=== PATIENT | female | born 1980 | race African-American/Black ===

== ENCOUNTER 2018-02-02 20:23 | Inpatient (IN) | payer OTHER ==
[2018-02-02 20:44] VITALS: BMI 22.3
--- NOTE | 2018-02-02 20:44 | HP ---
COWS - Scale Resting Pulse: 2= NV 101-120 Sweatin= Chills/Flushing Restless Observation: 1= Difficult to Sit Still Pupil Size: 0= Normal to Room Light Bone or Joint Aches: 1= Mild Discomfort Runny Nose/ Eye Tearin= Runny Nose/Eyes GI Upset > 30mins: 0= None Tremor Observation: 2= Slight Tremor Visible Yawning Observation: 2= >3x During Session Anxiety or Irritability: 2=Irritable/Anxious Goose Flesh Skin: 0=Smooth Skin COWS Score: 13 CIWA Score - CIWA Score Nausea/Vomitin-No Nausea/No Vomiting Muscle Tremors: 2 Anxiety: 3 Agitation: 4-Moderately Restless Paroxysmal Sweats: 1-Minimal Palms Moist Orientation: 1-Uncertain about Date (no distress) Tacttile Disturbances: 0-None Auditory Disturbances: 1-Very Mild Visual Disturbances: 1-Very Mild Sensitivity Headache: 1-Very Mild CIWA-Ar Total Score: 14 Admission ROS S - HPI Chief Complaint: opioid, alcohol withdrawal symptoms Allergies/Adverse Reactions: Allergies Allergy/AdvReac Type Severity Reaction Status Date / Time ibuprofen Allergy Verified 02/02/18 20:50 History of Present Illness: 37 yo female with hx of nicotine, alcohol, xanax , alcohol , and heroin dependence is here seeking detox for the fist time. Denies any other detox tx. Poppy was seen at [facility] for an asthma attack. Poppy was recently rapped two weeks ago and was seen at [facility]. PMHX: herniated disc , chronic, Asthma, depression, bipolar, schizophrenia, manic depression. Denies suicidal / homicidal ideation, report hx suicide thoughts, poppy was admitted to [facility] for homicidal ideation and auditory hallucinations four months ago. Denies any period of sobriety. Denies hx of seizures or blackouts, reports OD x1, last episode June 2017. Exam Limitations: No Limitations - Ebola screening Have you traveled outside of the country in the last 21 days: No Have you had contact with anyone from an Ebola affected area: No Do you have a fever: No - Review of Systems Constitutional: Loss of Appetite (not eatene x 2 days), Changes in sleep (no sleep x 5 days), Unintentional Wgt. Loss EENT: reports: Nose Congestion Respiratory: reports: SOB with Exertion Cardiac: reports: No Symptoms Reported GI: reports: Poor Appetite, Poor Fluid Intake : reports: No Symptoms Reported Musculoskeletal: reports: Back Pain, Joint Pain Integumentary: reports: No Symptoms Reported Endocrine: reports: No Symptoms Reported, Increased Thirst Hematology: reports: No Symptoms Reported Psychiatric: reports: Orientated x3, Anxious Other Systems: Reviewed and Negative Patient History - Patient Medical History Hx Anemia: No Hx Asthma: Yes Hx Chronic Obstructive Pulmonary Disease (COPD): No Hx Cancer: No Hx Cardiac Disorders: No Hx Congestive Heart Failure: No Hx Hypertension: No Hx Hypercholesterolemia: No Hx Pacemaker: No HX Cerebrovascular Accident: No Hx Seizures: No Hx Dementia: No Hx Diabetes: No Hx Gastrointestinal Disorders: No Hx Liver Disease: No Hx Genitourinary Disorders: No Hx Sexually Transmitted Disorders: No Hx Renal Disease (ESRD): No Hx Thyroid Disease: No Hx Human Immunodeficiency Virus (HIV): No (reports test q3m, results negative) Hx Depression: Yes Hx Suicide Attempt: No Hx Bipolar Disorder: Yes Hx Schizophrenia: Yes - Patient Surgical History Past Surgical History: Yes Hx Neurologic Surgery: No Hx Cataract Extraction: No Hx Cardiac Surgery: No Hx Lung Surgery: No Hx Breast Surgery: No Hx Breast Biopsy: No Hx Abdominal Surgery: No Hx Appendectomy: No Hx Cholecystectomy: No Hx Genitourinary Surgery: No Hx Section: Yes ( x 2 ) Hx Orthopedic Surgery: No Hx Hysterectomy: No Anesthesia Reaction: No - PPD History Previous Implant?: No Documented Results: Negative w/o proof Implanted On Prior R Admission?: No PPD to be Administered?: Yes - Reproductive History Patient is a Female of Child Bearing Age (11 -55 yrs old): Yes Last Menstrual Period: 01/11/18 Patient : No - Smoking Cessation Smoking history: Current every day smoker Have you smoked in the past 12 months: Yes Aproximately how many cigarettes per day: 20 Hx Chewing Tobacco Use: No Initiated information on smoking cessation: Yes 'Breaking Loose' booklet given: 02/02/18 - Substance & Tx. History Hx Alcohol Use: Yes Hx Substance Use: Yes Substance Use Type: Alcohol, Cocaine, Heroin, Marijuana, Tranquilizers Hx Substance Use Treatment: No - Substances Abused Alcohol Route: Oral Frequency: Daily Amount used: 1 pint ricki Age of first use: 14 Date of Last Use: 02/02/18 Heroin Route: Inhalation Frequency: Daily Amount used: 5 - 7 bags Age of first use: 35 Date of Last Use: 02/02/18 Crack Route: Smoking Frequency: Daily Amount used: $800 - $900 Age of first use: 34 Date of Last Use: 02/02/18 Alprazolam (Xanax) Route: Oral Frequency: 3-6 times per week Amount used: 1 - 2 mg Age of first use: 30 Date of Last Use: 01/30/18 Family Disease History - Family Disease History Family History: Unable to Obtain Admission Physical Exam [facility] - Physical General Appearance: Yes: Disheveled, Mild Distress, Thin, Irritable, Anxious HEENTM: Yes: EOMI, Hearing grossly Normal, Normal ENT Inspection, Normocephalic , Normal Voice, JUSTA, Pharynx Normal, Tm's normal, Nasal Congestion Respiratory: Yes: Chest Non-Tender, Lungs Clear, No Respiratory Distress, No Accessory Muscle Use, Wheezing Neck: Yes: Within Normal Limits Breast: Yes: Breast Exam Deferred Cardiology: Yes: Regular Rhythm, Regular Rate Abdominal: Yes: Normal Bowel Sounds, Non Tender, Flat, Soft Genitourinary: Yes: Within Normal Limits Back: Yes: Normal Inspection Musculoskeletal: Yes: full range of Motion, Gait Steady, Pelvis Stable, Back pain Extremities: Yes: Normal Capillary Refill, Normal Inspection, Normal Range of Motion, Non-Tender Neurological: Yes: director of special education II-XII NML intact, Fully Oriented, Alert, Motor Strength 5/5, Normal Response, Depressed Affect Integumentary: Yes: Normal Color, Warm, Diaphoresis Lymphatic: Yes: Within Normal Limits - Diagnostic (1) Cocaine dependence Current Visit: Yes Status: Acute Qualifiers: Substance use status: uncomplicated Qualified Code(s): F14.20 - Cocaine dependence, uncomplicated (2) Opioid dependence with withdrawal Current Visit: Yes Status: Acute (3) Alcohol dependence with withdrawal Current Visit: Yes Status: Acute Qualifiers: Complication of substance-induced condition: uncomplicated Qualified Code(s ): F10.230 - Alcohol dependence with withdrawal, uncomplicated (4) Nicotine dependence Current Visit: Yes Status: Acute Qualifiers: Nicotine product type: cigarettes (5) Wheezing Current Visit: Yes Status: Acute (6) Asthma Current Visit: Yes Status: Chronic Qualifiers: Asthma severity: moderate Asthma complication type: with acute exacerbation (7) Psychiatric disorder Current Visit: Yes Status: Acute (8) Sedative hypnotic or anxiolytic dependence Current Visit: Yes Status: Acute Cleared for Admission S - Detox or Rehab [facility] Level of Care: Medically Managed Detox Regimen/Protocol: Methadone/Librium
[2018-02-02] MEDS ORDERED: MAGNESIUM CITRATE 300 ML BOTTLE PO PRN (21:01)
[2018-02-02] MEDS ORDERED: MAG HYDROX/AL HYDROX/SIMETH 30 ML UNIT-DOSE CUP PO PRN (21:01)
[2018-02-02] MEDS ORDERED: METHADONE HCL 10 MG TABLET (FOR DETOX USE ONLY) PO ONE ×2 (21:01→23:00)
[2018-02-02] MEDS ORDERED: guaiFENesin/D-METHORPHAN HB 10 ML UNIT-DOSE CUPS PO PRN (21:01)
[2018-02-02] MEDS ORDERED: P-EPHED 60MG/TRIPROLIDI 2.5MG TABLET PO PRN (21:01)
[2018-02-02] MEDS ORDERED: MENTHOL/PHENOL 1 EACH UD MM PRN (21:01)
[2018-02-02] MEDS ORDERED: LOPERAMIDE HCL 2 MG CAPSULE PO PRN (21:01)
[2018-02-02] MEDS ORDERED: MAGNESIUM HYDROX 2400MG/30ML ORAL SUSPENSION 30 ML CUP PO PRN (21:01)
[2018-02-02] MEDS ORDERED: chlordiazePOXIDE HCL 25 MG CAPSULE PO PRN (21:01)
[2018-02-02] MEDS ORDERED: ACETAMINOPHEN 325 MG TABLET (FP) PO PRN (21:01)
[2018-02-02] MEDS ORDERED: MELATONIN 5 MG TABLETS PO PRN (22:00)
[2018-02-02] MEDS: chlordiazePOXIDE HCL 25 MG CAPSULE PO SCH (22:56)
[2018-02-02] MEDS: THIAMINE HCL 100 MG TABLET (FP) PO SCH (22:57)
[2018-02-03] MEDS: hydrOXYzine PAMOATE 50 MG CAPSULE (FP) PO PRN (03:14)
[2018-02-03] MEDS: ALBUTEROL SO4 8 GM HFA INHALER IH PRN ×4 (03:26→22:18)
[2018-02-03] MEDS: chlordiazePOXIDE HCL 25 MG CAPSULE PO SCH ×4 (06:23→22:17)
--- NOTE | 2018-02-03 09:36 | PN ---
[facility] Progress Note Note: c/o "on the edge" wants to harm self and harm others "I do not have withdrawal sx like other people" patient is alert rocking back and forth 1 on 1 observation psychiatric consultation now
[2018-02-03 09:38] LABS: HEMATOCRIT 36.9 % (32.4-45.2); HEMOGLOBIN 12.2 GM/dL (10.7-15.3); MCH 28.8 pg (25.7-33.7); MCHC 33.1 g/dl (32.0-36.0); MEAN CELL VOLUME 86.8 fl (80-96); MEAN PLT VOLUME 7.9 fl (7.5-11.1); PLATELET COUNT 564 K/MM3 (134-434); RBC 4.24 M/mm3 (3.60-5.2); RDW 14.4 % (11.6-15.6); WHITE BLOOD COUNT 9.8 K/mm3 (4.0-10.0)
--- NOTE | 2018-02-03 09:44 | CONSULT ---
[facility] Psychiatric Consult - Data Date of interview: 02/03/18 Admission source: [facility] Identifying data: Patient is a 37 year old single female, mother of two, domiciled, and works as a prostitute. This is patient's first admission to detox at [facility]. Pt. admitted to for alcohol dependence. Substance Abuse History: Smoking Cessation. Smoking history: Current every day smoker. Have you smoked in the past 12 months: Yes. Aproximately how many cigarettes per day: 20. Hx Chewing Tobacco Use: No. Initiated information on smoking cessation: Yes. 'Breaking Loose' booklet given: 02/02/18. - Substance & Tx. History. Hx Alcohol Use: Yes. Hx Substance Use: Yes. Substance Use Type : Alcohol, Cocaine, Heroin, Marijuana, Tranquilizers. Hx Substance Use Treatment: No. - Substances Abused. Alcohol. Route: Oral. Frequency: Daily. Amount used: 1 pint henessy. Age of first use: 14. Date of Last Use: 02/02/18. Heroin. Route: Inhalation. Frequency: Daily. Amount used: 5 - 7 bags. Age of first use: 35. Date of Last Use: 02/02/18. Crack. Route: Smoking. Frequency: Daily. Amount used: $800 - $900. Age of first use: 34. Date of Last Use: 02/02/18. Alprazolam (Xanax). Route: Oral. Frequency: 3- 6 times per week. Amount used: 1 - 2 mg. Age of first use: 30. Date of Last Use: 01/30/18 Medical History: Asthma Psychiatric History: Pt. reports multiple psychiatric hospitalizations, most recently 4 months ago at [facility] for bipolar disorder. Pt. reports also being admitted to [facility]. Pt. unable to recall the medications she was prescribed while at [facility]. Pt. reports [employer] approximately 10 years ago. Pt. remembers only taking zoloft. As per pharmacy claims, an electronic prescription of mirtzapine was sent to patient's pharmacy on 05/26/2017. Pt. reports h/o auditory and visual halluincations (see's spirits ). Pt. reports currently hearing voices telling her to leave. Pt. denies command auditory hallucinations. Pt. nonadherent to [employer]. Pt. reports one suicide attempt four years ago by cutting self on left wrist. As per [facility], patient reported having thoughts to hurt herself or others. Pt. stated to insurance underwriter , " I did not say i wanted to hurt myself or others. I said if don't get the medications i need, i will have thoughts to hurt myself. I do not want to hurt myself or others." Patient can approach staff if she has thoughts to hurt self or others. At this time patient does not need 1:1 Observation. Seroquel 50mg qhs ordered. Mental Status Exam - Mental Status Exam Alert and Oriented to: Time, Place, Person Cognitive Function: Good Patient Appearance: Well Groomed Mood: Euthymic Affect: Mood Congruent Patient Behavior: Appropriate, Cooperative Speech Pattern: Appropriate Voice Loudness: Normal Thought Process: Intact Thought Disorder: Not Present Hallucinations: Denies Suicidal Ideation: Denies Homicidal Ideation: Denies Insight/Judgement: Poor Sleep: Poorly Appetite: Fair Muscle strength/Tone: Normal Gait/Station: Normal Psychiatric Findings - Problem List (Webb 1, 2,3) (1) Substance induced mood disorder Current Visit: Yes Status: Acute (2) Alcohol dependence with withdrawal Current Visit: Yes Status: Acute Qualifiers: Complication of substance-induced condition: uncomplicated Qualified Code(s ): F10.230 - Alcohol dependence with withdrawal, uncomplicated (3) Nicotine dependence Current Visit: Yes Status: Acute Qualifiers: Nicotine product type: cigarettes (4) Opioid dependence with withdrawal Current Visit: Yes Status: Acute - Initial Treatment Plan Initial Treatment Plan: Pt. currently denies urges or thoughts to hurt self or others and therefore does not require 1:1 obervation. Psychoeducation provided. Detoxification in progress. Seroquel 50mg qhs orderded. Benefits and side effects discussed. Verbal consent given.
[2018-02-03] MEDS ORDERED: METHADONE HCL 10 MG TABLET (FOR DETOX USE ONLY) PO SCH (10:00)
[2018-02-03 10:48] LABS: ALBUMIN 2.9 g/dl (3.4-5.0); ANION GAP 11 (8-16); BLOOD UREA NITROGEN 12 mg/dL (7-18); CHLORIDE 104 mmol/L (98-107); CO2 23 mmol/L (21-32); GLUCOSE,RANDOM 109 mg/dL (74-106); POTASSIUM 4.3 mmol/L (3.5-5.1); SODIUM 138 mmol/L (136-145)
[2018-02-03] MEDS: NICOTINE 21 MG/24 HOURS TOPICAL PATCH TD SCH (10:49)
[2018-02-03] MEDS: PRENATAL VITAMINS W/ FOLIC ACID TABLET (FP) PO SCH (10:49)
[2018-02-03 10:51] LABS: ALK PHOS 120 U/L (45-117); BILIRUBIN,TOTAL 0.1 mg/dL (0.2-1.0); CREATININE 0.8 mg/dL (0.55-1.02); SGOT/AST 21 U/L (15-37); SGPT/ALT 25 U/L (12-78); TOT PROT 7.3 g/dl (6.4-8.2)
[2018-02-03] MEDS: NICOTINE POLACRILEX 2 MG GUM BC PRN ×2 (10:53→18:26)
--- NOTE | 2018-02-03 11:48 | PN ---
[facility] CIWA - CIWA Score Nausea/Vomitin-Mild Nausea/No Vomiting Muscle Tremors: 4-Moderate,w/Arms Extend Anxiety: 4-Mod. Anxious/Guarded Agitation: 4-Moderately Restless Paroxysmal Sweats: 1-Minimal Palms Moist Orientation: 0-Oriented Tacttile Disturbances: 0-None Auditory Disturbances: 0-None Visual Disturbances: 0-None Headache: 0-None Present CIWA-Ar Total Score: 14 [facility] COWS - Scale Resting Pulse: 1= MO 81-100 Sweatin= Chills/Flushing Restless Observation: 1= Difficult to Sit Still Pupil Size: 0= Normal to Room Light Bone or Joint Aches: 2= Severe Diffuse Aches Runny Nose/ Eye Tearin= Nasal Congestion GI Upset > 30mins: 2= Nausea/Diarrhea Tremor Observation of Outstretched Hands: 2= Slight Tremor Visible Yawning Observation: 1= 1-2x During Session Anxiety or Irritability: 1=Feels Anxious/Irritable Goose Flesh Skin: 3=Piloerection COWS Score: 15 [facility] Progress Note (SOAP) Subjective: anxiety irritable sweat tremor restlessness trouble sleep at night Objective: 02/03/18 11:50 Vital Signs Temperature 97.9 F 02/03/18 10:50 Pulse Rate 97 H 02/03/18 10:50 Respiratory Rate 18 02/03/18 10:50 Blood Pressure 111/76 02/03/18 10:50 O2 Sat by Pulse Oximetry (%) Laboratory Last Values WBC 9.8 K/mm3 (4.0-10.0) 02/03/18 07:00 RBC 4.24 M/mm3 (3.60-5.2) 02/03/18 07:00 Hgb 12.2 GM/dL (10.7-15.3) 02/03/18 07:00 Hct 36.9 % (32.4-45.2) 02/03/18 07:00 MCV 86.8 fl (80-96) 02/03/18 07:00 MCH 28.8 pg (25.7-33.7) 02/03/18 07:00 MCHC 33.1 g/dl (32.0-36.0) 02/03/18 07:00 RDW 14.4 % (11.6-15.6) 02/03/18 07:00 Plt Count 564 K/MM3 (134-434) H 02/03/18 07:00 MPV 7.9 fl (7.5-11.1) 02/03/18 07:00 Sodium 138 mmol/L (136-145) 02/03/18 07:00 Potassium 4.3 mmol/L (3.5-5.1) 02/03/18 07:00 Chloride 104 mmol/L (98-107) 02/03/18 07:00 Carbon Dioxide 23 mmol/L (21-32) 02/03/18 07:00 Anion Gap 11 (8-16) 02/03/18 07:00 BUN 12 mg/dL (7-18) 02/03/18 07:00 Creatinine 0.8 mg/dL (0.55-1.02) 02/03/18 07:00 Creat Clearance w eGFR > 60 (>60) 02/03/18 07:00 Random Glucose 109 mg/dL (74-106) H 02/03/18 07:00 Calcium 9.0 mg/dL (8.5-10.1) 02/03/18 07:00 Total Bilirubin 0.1 mg/dL (0.2-1.0) L 02/03/18 07:00 AST 21 U/L (15-37) 02/03/18 07:00 ALT 25 U/L (12-78) 02/03/18 07:00 Alkaline Phosphatase 120 U/L (45-117) H 02/03/18 07:00 Total Protein 7.3 g/dl (6.4-8.2) 02/03/18 07:00 Albumin 2.9 g/dl (3.4-5.0) L 02/03/18 07:00 RPR Titer Nonreactive (NONREACTIVE) 02/03/18 07:00 HIV 1&2 Antibody Screen Negative 02/03/18 07:00 HIV P24 Antigen Negative 02/03/18 07:00 lab noted Assessment: 02/03/18 11:52 withdrawal sx Plan: continue detox
--- NOTE | 2018-02-03 13:57 | EKG ---
Test Reason : Blood Pressure : / mmHG Vent. Rate : 103 BPM Atrial Rate : 103 BPM P-R Int : 132 ms QRS Dur : 082 ms QT Int : 376 ms P-R-T Axes : 037 043 066 degrees QTc Int : 492 ms SINUS TACHYCARDIA OTHERWISE NORMAL ECG NO PREVIOUS ECGS AVAILABLE Confirmed by Stephan Polo MD ([id number]) on 02/03/2018 1:57:07 PM Referred By: Confirmed By:Stephan Polo MD
[2018-02-03] MEDS: BACLOFEN 10 MG TABLET (FP) PO PRN ×2 (14:40→22:18)
[2018-02-03 15:17] LABS: URINE APPEARANCE CLEAR; URINE BILIRUBIN NEGATIVE (<2.0 mg/dL); URINE COLOR LTYELLOW; URINE GLUCOSE (UA) NEGATIVE (NEGATIVE); URINE KETONE NEGATIVE (NEGATIVE); URINE LEUK ESTERASE NEGATIVE (NEGATIVE); URINE NITRITE NEGATIVE (NEGATIVE); URINE PROTEIN NEGATIVE (NEGATIVE); URINE UROBILINOGEN NEGATIVE mg/dL (0.2-1.0)
[2018-02-03] MEDS: THIAMINE HCL 100 MG TABLET (FP) PO SCH (22:17)
[2018-02-03] MEDS: QUEtiapine FUMARATE 50 MG TABLET PO SCH (22:18)
[2018-02-04] MEDS: chlordiazePOXIDE HCL 25 MG CAPSULE PO SCH ×3 (06:20→18:17)
[2018-02-04] MEDS: ALBUTEROL SO4 8 GM HFA INHALER IH PRN (08:54)
[2018-02-04] MEDS: BACLOFEN 10 MG TABLET (FP) PO PRN ×2 (08:54→19:15)
[2018-02-04] MEDS: METHADONE HCL 5 MG TABLET (FOR DETOX USE ONLY) PO SCH (10:33)
[2018-02-04] MEDS: NICOTINE 21 MG/24 HOURS TOPICAL PATCH TD SCH (10:33)
[2018-02-04] MEDS: PRENATAL VITAMINS W/ FOLIC ACID TABLET (FP) PO SCH (10:33)
[2018-02-04] MEDS: NICOTINE POLACRILEX 2 MG GUM BC PRN ×2 (10:34→19:16)
--- NOTE | 2018-02-04 10:46 | PN ---
[facility] CIWA - CIWA Score Nausea/Vomitin Muscle Tremors: 3 Anxiety: 2 Agitation: 2 Paroxysmal Sweats: 1-Minimal Palms Moist Orientation: 0-Oriented Tacttile Disturbances: 1-Very Mild Itch/Numbness Auditory Disturbances: 1-Very Mild Visual Disturbances: 0-None Headache: 2-Mild CIWA-Ar Total Score: 15 BHS COWS - Scale Resting Pulse: 2= [place] 101-120 Sweatin= Chills/Flushing Restless Observation: 3= Extraneous Movement Pupil Size: 1= Pupils >than Normal Bone or Joint Aches: 2= Severe Diffuse Aches Runny Nose/ Eye Tearin= Runny Nose/Eyes GI Upset > 30mins: 2= Nausea/Diarrhea Tremor Observation of Outstretched Hands: 2= Slight Tremor Visible Yawning Observation: 1= 1-2x During Session Anxiety or Irritability: 2=Irritable/Anxious Goose Flesh Skin: 0=Smooth Skin COWS Score: 18 [facility] Progress Note (SOAP) Subjective: alert,irritable,anxious,interrupted sleep,tremor,pain in the body Objective: 02/04/18 10:44 Vital Signs Temperature 97.2 F L 02/04/18 09:55 Pulse Rate 102 H 02/04/18 09:55 Respiratory Rate 20 02/04/18 09:55 Blood Pressure 109/62 02/04/18 09:55 O2 Sat by Pulse Oximetry (%) ekg sinus tachycardia 103 qt/qtc 376/492 Laboratory Last Values WBC 9.8 K/mm3 (4.0-10.0) 02/03/18 07:00 RBC 4.24 M/mm3 (3.60-5.2) 02/03/18 07:00 Hgb 12.2 GM/dL (10.7-15.3) 02/03/18 07:00 Hct 36.9 % (32.4-45.2) 02/03/18 07:00 MCV 86.8 fl (80-96) 02/03/18 07:00 MCH 28.8 pg (25.7-33.7) 02/03/18 07:00 MCHC 33.1 g/dl (32.0-36.0) 02/03/18 07:00 RDW 14.4 % (11.6-15.6) 02/03/18 07:00 Plt Count 564 K/MM3 (134-434) H 02/03/18 07:00 MPV 7.9 fl (7.5-11.1) 02/03/18 07:00 Sodium 138 mmol/L (136-145) 02/03/18 07:00 Potassium 4.3 mmol/L (3.5-5.1) 02/03/18 07:00 Chloride 104 mmol/L (98-107) 02/03/18 07:00 Carbon Dioxide 23 mmol/L (21-32) 02/03/18 07:00 Anion Gap 11 (8-16) 02/03/18 07:00 BUN 12 mg/dL (7-18) 02/03/18 07:00 Creatinine 0.8 mg/dL (0.55-1.02) 02/03/18 07:00 Creat Clearance w eGFR > 60 (>60) 02/03/18 07:00 Random Glucose 109 mg/dL (74-106) H 02/03/18 07:00 Calcium 9.0 mg/dL (8.5-10.1) 02/03/18 07:00 Total Bilirubin 0.1 mg/dL (0.2-1.0) L 02/03/18 07:00 AST 21 U/L (15-37) 02/03/18 07:00 ALT 25 U/L (12-78) 02/03/18 07:00 Alkaline Phosphatase 120 U/L (45-117) H 02/03/18 07:00 Total Protein 7.3 g/dl (6.4-8.2) 02/03/18 07:00 Albumin 2.9 g/dl (3.4-5.0) L 02/03/18 07:00 Urine Color Ltyellow 02/03/18 13:15 Urine Appearance Clear 02/03/18 13:15 Urine pH 7.0 (5.0-8.0) 02/03/18 13:15 Ur Specific [place] 1.013 (1.001-1.035) 02/03/18 13:15 Urine Protein Negative (NEGATIVE) 02/03/18 13:15 Urine Glucose (UA) Negative (NEGATIVE) 02/03/18 13:15 Urine Ketones Negative (NEGATIVE) 02/03/18 13:15 Urine Blood Negative (NEGATIVE) 02/03/18 13:15 Urine Nitrite Negative (NEGATIVE) 02/03/18 13:15 Urine Bilirubin Negative (<2.0 mg/dL) 02/03/18 13:15 Urine Urobilinogen Negative mg/dL (0.2-1.0) 02/03/18 13:15 Ur Leukocyte Esterase Negative (NEGATIVE) 02/03/18 13:15 RPR Titer Nonreactive (NONREACTIVE) 02/03/18 07:00 HIV 1&2 Antibody Screen Negative 02/03/18 07:00 HIV P24 Antigen Negative 02/03/18 07:00 Assessment: 02/04/18 10:47 withdrawal symptom Plan: continue detox
[2018-02-04] MEDS ORDERED: CYCLOBENZAPRINE HCL 10 MG TABLET (FP) PO PRN (11:06)
[2018-02-04] MEDS ORDERED: CYCLOBENZAPRINE HCL 10 MG TABLET (FP) PO ONE (11:20)
[2018-02-04] MEDS: cloNIDine HCL 0.1 MG TABLET PO SCH ×2 (11:23→23:05)
[2018-02-04] MEDS: THIAMINE HCL 100 MG TABLET (FP) PO SCH (22:25)
[2018-02-04] MEDS: chlordiazePOXIDE 5 MG CAPSULE PO SCH (22:26)
[2018-02-04] MEDS: QUEtiapine FUMARATE 50 MG TABLET PO SCH (22:26)
[2018-02-04] MEDS: ALBUTEROL SO4 2.5/IPRATROPIUM 0.5 INH SOL 3 ML VIAL.NEB. NEB PRN (22:29)
[2018-02-05] MEDS: chlordiazePOXIDE 5 MG CAPSULE PO SCH ×3 (06:58→17:52)
[2018-02-05] MEDS: ALBUTEROL SO4 8 GM HFA INHALER IH PRN (08:30)
[2018-02-05] MEDS: hydrOXYzine PAMOATE 50 MG CAPSULE (FP) PO PRN (08:31)
[2018-02-05 09:57] VITALS: BP 114/75; PULSE 119; TEMP 98
[2018-02-05] MEDS: PRENATAL VITAMINS W/ FOLIC ACID TABLET (FP) PO SCH (10:44)
[2018-02-05] MEDS: METHADONE HCL 5 MG TABLET (FOR DETOX USE ONLY) PO SCH (10:44)
[2018-02-05] MEDS: NICOTINE 21 MG/24 HOURS TOPICAL PATCH TD SCH (10:44)
[2018-02-05] MEDS: cloNIDine HCL 0.1 MG TABLET PO SCH ×2 (10:44→23:04)
[2018-02-05] MEDS: ALBUTEROL SO4 2.5/IPRATROPIUM 0.5 INH SOL 3 ML VIAL.NEB. NEB PRN (10:45)
[2018-02-05] MEDS: NICOTINE POLACRILEX 2 MG GUM BC PRN (10:45)
--- NOTE | 2018-02-05 11:14 | PN ---
Psychiatric Progress Note Vital Signs: Vital Signs Period Temp Pulse Resp BP Sys/Lincoln Pulse Ox Last 24 Hr 98 F-99.7 F 97-127 16-20 103-114/62-79 Date of Session: 02/05/18 Chief Complaint:: Auditory hallucination HPI: Patient reports hearing voices commanding her to hurt herself or others. having thoughts to hurt herself or others. Patient agrees to be transfer to psychiatric department for professional hael to start psychiatric medications and to stop auditory hallucinations Current Medications: Active Medications Generic Name Dose Route Start Last Admin Trade Name Freq PRN Reason Stop Dose Admin Acetaminophen 650 mg 02/02/18 21:01 Tylenol - PO Q4H PRN FEVER Al Hydroxide/Mg Hydroxide 30 ml 02/02/18 21:01 Mylanta Oral Suspension - PO Q6H PRN DYSPEPSIA Albuterol Sulfate 2 puff 02/02/18 21:14 02/05/18 08:30 Ventolin Hfa Inhaler - IH 2 puff Q4H PRN Administration WHEEZING Albuterol/Ipratropium 1 amp 02/02/18 20:58 02/05/18 10:45 Duoneb - NEB 1 amp Q4H PRN Administration SHORTNESS OF BREATH Baclofen 10 mg 02/03/18 09:33 02/04/18 19:15 Lioresal - PO 10 mg TID PRN Administration BACK PAIN Chlordiazepoxide HCl 15 mg 02/04/18 23:00 02/05/18 10:44 Librium - PO 02/05/18 17:01 15 mg [id number] KAREN Administration Chlordiazepoxide HCl 10 mg 02/05/18 23:00 Librium - PO 02/06/18 17:01 [id number] KAREN Chlordiazepoxide HCl 25 mg 02/02/18 21:01 Librium - PO 02/05/18 21:01 Q4H PRN WITHDRAWAL(CONT SUBST) Clonidine 0.1 mg 02/04/18 11:15 02/05/18 10:44 Catapres - PO 0.1 mg BID KAREN Administration Cyclobenzaprine HCl 10 mg 02/04/18 11:06 Flexeril - PO TID PRN MUSCLE SPASMS Eucalyptus/Menthol/Phenol/Sorbitol 1 each 02/02/18 21:01 Cepastat Lozenge - MM Q4H PRN SORE THROAT Guaifenesin 10 ml 02/02/18 21:01 Robitussin Dm - PO Q6H PRN COUGH Hydroxyzine Pamoate 50 mg 02/02/18 21:01 02/05/18 08:31 Vistaril - PO 50 mg Q4H PRN Administration AGITATION Loperamide HCl 4 mg 02/02/18 21:01 Imodium - PO Q6H PRN DIARRHEA Magnesium Citrate 300 ml 02/02/18 21:01 Citroma - PO Q48H PRN CONSTIPATION Magnesium Hydroxide 30 ml 02/02/18 21:01 Milk Of Magnesia - PO DAILY PRN CONSTIPATION Melatonin 5 mg 02/02/18 22:00 Melatonin PO HS PRN INSOMNIA Methadone HCl 5 mg 02/07/18 06:00 Dolophine - PO 02/07/18 06:01 DAILY@0600 KAREN Methadone HCl 10 mg 02/06/18 10:00 Dolophine - PO 02/06/18 10:01 DAILY KAREN Nicotine 21 mg 02/03/18 10:00 02/05/18 10:44 Nicoderm Patch - TD 21 mg DAILY KAREN Administration Nicotine Polacrilex 2 mg 02/02/18 21:01 02/05/18 10:45 Nicorette Gum - BC 2 mg Q2H PRN Administration NICOTINE REPLACEMENT RX Multivit/Folic Acid/Iron 1 tab 02/03/18 10:00 02/05/18 10:44 Vitamins (Sjr) - PO 1 tab DAILY KAREN Administration Pseudoephedrine/Triprolidine 1 combo 02/02/18 21:01 Actifed - PO TID PRN NASAL CONGESTION Quetiapine Fumarate 50 mg 02/03/18 22:00 02/04/18 22:26 Seroquel - PO 50 mg HS KAREN Administration Thiamine HCl 100 mg 02/02/18 22:00 02/04/18 22:25 Vitamin B1 - PO 100 mg HS KAREN Administration Medication(s) Change(s): Haldol 5mg po stat. Benadryl 50mg po stat Provider note:: Supportive psychotherapy provided, patient followitg directions and agrees to be send to [facility] for safety due to suicidal and homicidal ideation. Mental Status Exam - Mental Status Exam Alert and Oriented to: Place, Person Cognitive Function: Impaired Patient Appearance: Unkempt Mood: Suspicious, Anxious, Irritable Affect: Constricted Patient Behavior: Guarded, Cooperative Speech Pattern: Delayed Voice Loudness: Mildly Soft/Quiet Thought Process: Circumstantial Thought Disorder: Being Controlled Suicidal Ideation: Current Homicidal Ideation: Current Insight/Judgement: Impaired Sleep: Difficulty falling asleep Appetite: Fair Muscle strength/Tone: Normal Gait/Station: Normal Additional Comments: Patient tranfered to [facility] for safety Psychiatric Treatment Plan - Problem List (1) Bipolar 1 disorder Current Visit: Yes (2) Bipolar I disorder with mood-congruent psychotic features Current Visit: Yes (3) Alcohol dependence with withdrawal Current Visit: Yes Qualifiers: Complication of substance-induced condition: uncomplicated Qualified Code(s ): F10.230 - Alcohol dependence with withdrawal, uncomplicated (4) Cocaine dependence Current Visit: Yes Qualifiers: Substance use status: uncomplicated Qualified Code(s): F14.20 - Cocaine dependence, uncomplicated (5) Nicotine dependence Current Visit: Yes Qualifiers: Nicotine product type: cigarettes (6) Opioid dependence with withdrawal Current Visit: Yes Initial treatment plan: Tranfer to [facility] due to commanding hallucinations to hurt self and others
--- NOTE | 2018-02-05 11:22 | PN ---
[facility] Progress Note (SOAP) Subjective: alert,irritable,anxious,interrupted sleep,pain in the body Objective: 02/05/18 11:20 Vital Signs Temperature 98 F 02/05/18 09:55 Pulse Rate 119 H 02/05/18 09:55 Respiratory Rate 18 02/05/18 09:55 Blood Pressure 114/75 02/05/18 09:55 O2 Sat by Pulse Oximetry (%) Assessment: 02/05/18 11:21 withdrawal symptom Plan: continue detox
--- NOTE | 2018-02-05 12:44 | PN ---
[facility] Progress Note Note: patient seen by psychiatrist that she is having auditory hallucination,the voice tell her to hurt herself and other person patient agree to go to [facility] for evaluation and treatment. transported by [facility]
--- NOTE | 2018-02-05 12:46 | DS ---
[facility] Detox Discharge Summary Admission Date: 02/02/18 Discharge Date: 02/05/18 - History Present History: Alcohol Dependence, Cannabis Dependence, Cocaine Dependence, Opioid Dependence, Sedative Dependence Additional Comments: patient has auditory hallucination ,seen by psychiatrist DR King ,sent to [facility] for evaluation and treatment transported [facility] Pertinent Past History: nicotine dependence asthma - Physical Exam Results Vital Signs: Vital Signs Temperature 98 F 02/05/18 09:55 Pulse Rate 119 H 02/05/18 09:55 Respiratory Rate 18 02/05/18 09:55 Blood Pressure 114/75 02/05/18 09:55 O2 Sat by Pulse Oximetry (%) Pertinent Admission Physical Exam Findings: withdrawal signs and symptom Laboratory Last Values WBC 9.8 K/mm3 (4.0-10.0) 02/03/18 07:00 RBC 4.24 M/mm3 (3.60-5.2) 02/03/18 07:00 Hgb 12.2 GM/dL (10.7-15.3) 02/03/18 07:00 Hct 36.9 % (32.4-45.2) 02/03/18 07:00 MCV 86.8 fl (80-96) 02/03/18 07:00 MCH 28.8 pg (25.7-33.7) 02/03/18 07:00 MCHC 33.1 g/dl (32.0-36.0) 02/03/18 07:00 RDW 14.4 % (11.6-15.6) 02/03/18 07:00 Plt Count 564 K/MM3 (134-434) H 02/03/18 07:00 MPV 7.9 fl (7.5-11.1) 02/03/18 07:00 Sodium 138 mmol/L (136-145) 02/03/18 07:00 Potassium 4.3 mmol/L (3.5-5.1) 02/03/18 07:00 Chloride 104 mmol/L (98-107) 02/03/18 07:00 Carbon Dioxide 23 mmol/L (21-32) 02/03/18 07:00 Anion Gap 11 (8-16) 02/03/18 07:00 BUN 12 mg/dL (7-18) 02/03/18 07:00 Creatinine 0.8 mg/dL (0.55-1.02) 02/03/18 07:00 Creat Clearance w eGFR > 60 (>60) 02/03/18 07:00 Random Glucose 109 mg/dL (74-106) H 02/03/18 07:00 Calcium 9.0 mg/dL (8.5-10.1) 02/03/18 07:00 Total Bilirubin 0.1 mg/dL (0.2-1.0) L 02/03/18 07:00 AST 21 U/L (15-37) 02/03/18 07:00 ALT 25 U/L (12-78) 02/03/18 07:00 Alkaline Phosphatase 120 U/L (45-117) H 02/03/18 07:00 Total Protein 7.3 g/dl (6.4-8.2) 02/03/18 07:00 Albumin 2.9 g/dl (3.4-5.0) L 02/03/18 07:00 Urine Color Ltyellow 02/03/18 13:15 Urine Appearance Clear 02/03/18 13:15 Urine pH 7.0 (5.0-8.0) 02/03/18 13:15 Ur Specific [place] 1.013 (1.001-1.035) 02/03/18 13:15 Urine Protein Negative (NEGATIVE) 02/03/18 13:15 Urine Glucose (UA) Negative (NEGATIVE) 02/03/18 13:15 Urine Ketones Negative (NEGATIVE) 02/03/18 13:15 Urine Blood Negative (NEGATIVE) 02/03/18 13:15 Urine Nitrite Negative (NEGATIVE) 02/03/18 13:15 Urine Bilirubin Negative (<2.0 mg/dL) 02/03/18 13:15 Urine Urobilinogen Negative mg/dL (0.2-1.0) 02/03/18 13:15 Ur Leukocyte Esterase Negative (NEGATIVE) 02/03/18 13:15 RPR Titer Nonreactive (NONREACTIVE) 02/03/18 07:00 HIV 1&2 Antibody Screen Negative 02/03/18 07:00 HIV P24 Antigen Negative 02/03/18 07:00 Vital Signs Temperature 98 F 02/05/18 09:55 Pulse Rate 119 H 02/05/18 09:55 Respiratory Rate 18 02/05/18 09:55 Blood Pressure 114/75 02/05/18 09:55 O2 Sat by Pulse Oximetry (%) - Medication Discharge Medications: Ambulatory Orders Albuterol Sulfate Inhaler - [Ventolin HFA Inhaler -] 2 puff IH Q4H PRN 02/02/18 - Diagnosis (1) Opioid dependence with withdrawal Current Visit: Yes Status: Acute (2) Alcohol dependence with withdrawal Current Visit: Yes Status: Acute Qualifiers: Complication of substance-induced condition: uncomplicated Qualified Code(s ): F10.230 - Alcohol dependence with withdrawal, uncomplicated (3) Cocaine dependence Current Visit: Yes Status: Acute Qualifiers: Substance use status: uncomplicated Qualified Code(s): F14.20 - Cocaine dependence, uncomplicated (4) Nicotine dependence Current Visit: Yes Status: Acute Qualifiers: Nicotine product type: cigarettes - AMA Did Patient Leave Against Medical Advice: No
[2018-02-05] MEDS ORDERED: chlordiazePOXIDE HCL 10 MG CAPSULE PO SCH (23:00)
[2018-02-05] MEDS: QUEtiapine FUMARATE 50 MG TABLET PO SCH (23:04)
[2018-02-05] MEDS: THIAMINE HCL 100 MG TABLET (FP) PO SCH (23:04)
[2018-02-06] MEDS ORDERED: METHADONE HCL 10 MG TABLET (FOR DETOX USE ONLY) PO SCH (10:00)
[2018-02-07] MEDS ORDERED: METHADONE HCL 5 MG TABLET (FOR DETOX USE ONLY) PO SCH (06:00)
== END 2018-02-05 23:55 | disposition short-term general hospital (02) | DRG 773 ==
LOC: YASAS 20:23 → Y6N 21:51
PROVIDERS: ADMIT Surgery; ATTEND Surgery
PROC: HZ2ZZZZ Detoxification Services for Substance Abuse Treatment (ICD-10-PCS; principal; 2018-02-02)
DX: F11.23 Opioid dependence with withdrawal (principal); F10.230 Alcohol dependence with withdrawal, uncomplicated; F13.230 Sedative, hypnotic or anxiolytic dependence with withdrawal, uncomplicated; F14.20 Cocaine dependence, uncomplicated; F12.20 Cannabis dependence, uncomplicated; F17.213 Nicotine dependence, cigarettes, with withdrawal; F31.9 Bipolar disorder, unspecified; F19.24 Other psychoactive substance dependence with psychoactive substance-induced mood disorder; F99 Mental disorder, not otherwise specified; F31.89 Other bipolar disorder; R44.0 Auditory hallucinations; J45.41 Moderate persistent asthma with (acute) exacerbation
CPT/HCPCS: 36415; 80053; 81003; 85027; 86593; 87389; 93005; 93010; 94640; J0475; J0735; J7620

== ENCOUNTER 2019-01-18 16:01 | Inpatient (IN) | payer OTHER ==
[2019-01-18] MEDS ORDERED: ALBUTEROL SO4 0.083% IH SOL 2.5 MG/3 ML VIAL.NEB. NEB ONE (20:46)
[2019-01-18 21:50] VITALS: BMI 20.9
[2019-01-19] MEDS ORDERED: ALBUTEROL SO4 0.083% IH SOL 2.5 MG/3 ML VIAL.NEB. NEB ONE (02:06)
--- NOTE | 2019-01-19 02:13 | PN ---
[facility] CIWA - CIWA Score Nausea/Vomitin-No Nausea/No Vomiting Muscle Tremors: 1-None Visible, but [place] Anxiety: 4-Mod. Anxious/Guarded Agitation: 4-Moderately Restless Paroxysmal Sweats: 3 Orientation: 0-Oriented Tacttile Disturbances: 0-None Auditory Disturbances: 2-Mild Harshness/Frighten Visual Disturbances: 2-Mild Sensitivity Headache: 3-Moderate CIWA-Ar Total Score: 19 BHS COWS - Scale Resting Pulse: 2= [place] 101-120 Sweatin=Flushed/Facial Moisture Restless Observation: 5= Unable to Sit Still Pupil Size: 0= Normal to Room Light Bone or Joint Aches: 4=Acute Joint/Muscle Pain Runny Nose/ Eye Tearin= Runny Nose/Eyes GI Upset > 30mins: 1= Stomach Cramp Tremor Observation of Outstretched Hands: 0= None Yawning Observation: 2= >3x During Session Anxiety or Irritability: 2=Irritable/Anxious Goose Flesh Skin: 0=Smooth Skin COWS Score: 20 BHS Progress Note (SOAP) Subjective: C/O WITHDRAWAL SX'S Objective: 01/19/19 02:09 HEROIN 30 BAGS DAILy NASALLY. SHE ALSO REPORTS SHE SMOKES IT WITH HER COCAINE WHICH IS HER PREFERABLE METHOD LAST USE 01/18/2019 ALCOHOL BEER 5-40 OZ CANS DAILY. LAST 01/18/2019 LIQUOR 1 PINT 2 X A WEEK A/ O X3 MODERATE DISTRESS R/T WITHDRAWAL AND NCAT, PERRLA CV TACHY LUNGS- SOB, MODERATE EXP WHEEZING BILATERALLY O2 SAT 89% EXTREMITIES NO TREMORS SKIN DRY INTACT UHCG NEG UTOX + CAROLA, OPI, THC Assessment: 01/19/19 02:13 F10.23 F11.23 Plan: ADMIT TO DETOX METHADONE/LIBRIUM TAPER ALBUTEROL NEB X 1 DOSE STAT
[2019-01-19] MEDS ORDERED: guaiFENesin 200 MG/10 ML 10 ML UNIT-DOSE CUPS PO PRN (02:14)
[2019-01-19] MEDS ORDERED: P-EPHED 60MG/TRIPROLIDI 2.5MG TABLET PO PRN (02:14)
[2019-01-19] MEDS ORDERED: ONDANSETRON *ODT* 4 MG TABLET SL PRN (02:14)
[2019-01-19] MEDS ORDERED: MELATONIN 5 MG TABLETS PO PRN (02:14)
[2019-01-19] MEDS ORDERED: ACETAMINOPHEN 325 MG TABLET (FP) PO PRN (02:14)
[2019-01-19] MEDS ORDERED: MAGNESIUM CITRATE 300 ML BOTTLE PO PRN (02:14)
[2019-01-19] MEDS ORDERED: METHADONE HCL 10 MG TABLET (FOR DETOX USE ONLY) PO ONE ×2 (02:14→04:02)
[2019-01-19] MEDS ORDERED: MAGNESIUM HYDROX 2400MG/30ML ORAL SUSPENSION 30 ML CUP PO PRN (02:14)
[2019-01-19] MEDS ORDERED: MAG HYDROX/AL HYDROX/SIMETH 30 ML UNIT-DOSE CUP PO PRN (02:14)
[2019-01-19] MEDS ORDERED: MENTHOL/PHENOL 1 EACH UD MM PRN (02:14)
[2019-01-19] MEDS: chlordiazePOXIDE HCL 25 MG CAPSULE PO SCH ×3 (04:14→22:28)
[2019-01-19] MEDS: METHOCARBAMOL 500 MG TABLET PO PRN (04:19)
[2019-01-19] MEDS: ALBUTEROL SO4 2.5/IPRATROPIUM 0.5 INH SOL 3 ML VIAL.NEB. NEB PRN ×3 (09:15→21:51)
[2019-01-19] MEDS: NICOTINE 21 MG/24 HOURS TOPICAL PATCH TD SCH (09:29)
[2019-01-19] MEDS: PRENATAL VITAMINS W/ FOLIC ACID TABLET (FP) PO SCH (09:29)
--- NOTE | 2019-01-19 09:57 | HP ---
COWS - Scale Resting Pulse: 2= [place] 101-120 Sweatin= Chills/Flushing Restless Observation: 0= Sits Still Pupil Size: 0= Normal to Room Light Bone or Joint Aches: 2= Severe Diffuse Aches Runny Nose/ Eye Tearin= Runny Nose/Eyes GI Upset > 30mins: 2= Nausea/Diarrhea (diarrhea only) Tremor Observation: 2= Slight Tremor Visible Yawning Observation: 2= >3x During Session Anxiety or Irritability: 2=Irritable/Anxious Goose Flesh Skin: 0=Smooth Skin COWS Score: 15 CIWA Score Nausea/Vomitin-No Nausea/No Vomiting Muscle Tremors: 1-None Visible, but [place] Anxiety: 4-Mod. Anxious/Guarded Agitation: 2 Paroxysmal Sweats: 2 Orientation: 1-Uncertain about Date Tacttile Disturbances: 0-None Auditory Disturbances: 2-Mild Harshness/Frighten Visual Disturbances: 2-Mild Sensitivity Headache: 2-Mild CIWA-Ar Total Score: 16 - Admission Criteria OASAS Guidelines: Admission for Medically Managed Detox: Requires at least one of the followin. CIWA greater than 12 2. Seizures within the past 24 hours 3. Delirium tremens within the past 24 hours 4. Hallucinations within the past 24 hours 5. Acute intervention needed for co occurring medical disorder 6. Acute intervention needed for co occurring psychiatric disorder 7. Severe withdrawal that cannot be handled at a lower level of care (continued vomiting, continued diarrhea, abnormal vital signs) requiring intravenous medication and/or fluids 8. ciwa greater than 12 never had seizure seen spirit hearing spirit on and off upon admission Admission [facility] Chief Complaint: alcohol and opiate withdrawal sx Allergies/Adverse Reactions: Allergies Allergy/AdvReac Type Severity Reaction Status Date / Time ibuprofen Allergy Verified 01/18/19 21:34 History of Present Illness: 38 years old male has long history of asthma treated with rescue inhaler, bipolar II treated with depakote thorazine gabapentin, last dose of dapakote "weeks" ago, drinking alcohol pint of rum twice a week 40 oz beer x 5-6 bottles daily smoking and sniffy 3 bundles of heroin daily cocaine / crack daily 9-10 G marijuana : daily 5 blunt cigarettes 2 packs daily since age 9 Exam Limitations: No Limitations - Ebola screening Have you traveled outside of the country in the last 21 days: No Have you had contact with anyone from an Ebola affected area: No Have you been sick,other than usual withdrawal symptoms: Yes (patient OD x 5, last OD) Do you have a fever: No - Review of Systems Constitutional: Chills, Loss of Appetite, Changes in sleep, Unexplained wgt Loss EENT: reports: Hearing Loss (right ear), Nose Congestion Respiratory: reports: Cough, SOB with Exertion, Wheezing Cardiac: reports: No Symptoms Reported GI: reports: Diarrhea, Poor Appetite, Poor Fluid Intake, Indigestion, Abdominal cramping : reports: No Symptoms Reported Musculoskeletal: reports: Back Pain, Joint Pain, Muscle Pain, Neck Pain Integumentary: reports: No Symptoms Reported Neuro: reports: Headache, Numbness, Tingling, Tremors Endocrine: reports: No Symptoms Reported Hematology: reports: No Symptoms Reported Psychiatric: reports: Judgement Intact, Mood/Affect Appropiate, Anxious, Depressed, Disorientated (to date) Other Systems: Reviewed and Negative Patient History - Patient Medical History Hx Anemia: No Hx Asthma: Yes Hx Chronic Obstructive Pulmonary Disease (COPD): No Hx Cancer: No Hx Cardiac Disorders: No Hx Congestive Heart Failure: No Hx Hypertension: No Hx Hypercholesterolemia: No Hx Pacemaker: No HX Cerebrovascular Accident: No Hx Seizures: No Hx Dementia: No Hx Diabetes: No Hx Gastrointestinal Disorders: No Hx Liver Disease: No Hx Genitourinary Disorders: No Hx Sexually Transmitted Disorders: No Hx Renal Disease (ESRD): No Hx Thyroid Disease: No Hx Human Immunodeficiency Virus (HIV): No (reports test q3m, results negative) Hx Hepatitis C: No Hx Depression: Yes Hx Suicide Attempt: Yes Hx Bipolar Disorder: Yes Hx Schizophrenia: Yes - Patient Surgical History Past Surgical History: Yes Hx Neurologic Surgery: No Hx Cataract Extraction: No Hx Cardiac Surgery: No Hx Lung Surgery: No Hx Breast Surgery: No Hx Breast Biopsy: No Hx Abdominal Surgery: No Hx Appendectomy: No Hx Cholecystectomy: No Hx Genitourinary Surgery: No Hx Section: Yes ( x 2 ) Hx Orthopedic Surgery: No Hx Hysterectomy: No Anesthesia Reaction: No - PPD History Previous Implant?: No Documented Results: Negative w/proof Implanted On Prior R Admission?: Yes Date: 02/04/18 PPD to be Administered?: No - Reproductive History Patient is a Female of Child Bearing Age (11 -55 yrs old): Yes Last Menstrual Period: 09/10/17 Patient : No - Smoking Cessation Smoking history: Current every day smoker Have you smoked in the past 12 months: Yes Aproximately how many cigarettes per day: 40 Hx Chewing Tobacco Use: No Initiated information on smoking cessation: Yes 'Breaking Loose' booklet given: 01/19/19 - Substance & Tx. History Hx Alcohol Use: Yes Hx Substance Use: Yes Substance Use Type: Alcohol, Cocaine, Heroin, Marijuana Hx Substance Use Treatment: Yes (01/2018 [facility] - Substances abused Alcohol Substance route: Oral Frequency: Daily Amount used: 5-6 22 OUNCE BEER, 1 PINT 2XWEEK Age of first use: 11 Date of last use: 01/18/19 Heroin Substance route: Smoking Frequency: Daily Amount used: 3 BUNDLES Age of first use: 32 Date of last use: 01/18/19 Crack Substance route: Smoking Frequency: Daily Amount used: 5-7 GRAMS Age of first use: 32 Date of last use: 01/18/19 Cocaine Substance route: Smoking Frequency: Daily Amount used: 5-7 GRAMS Age of first use: 32 Date of last use: 01/18/19 Family Disease History - Family Disease History Family Disease History: Diabetes: Grandparent, Father (OD), Mother, CA: Grandparent Admission Physical Exam S - Vital Signs Vital Signs: Vital Signs - 24 hr 01/18/19 01/18/19 01/19/19 21:39 23:22 03:05 Temperature 99.6 F 99.6 F 100.5 F H Pulse Rate 110 H 110 H 114 H Respiratory 19 19 18 Rate Blood Pressure 128/87 128/87 117/90 01/19/19 01/19/19 07:00 09:20 Temperature 99.5 F Pulse Rate 104 H 102 H Respiratory 16 16 Rate Blood Pressure 112/83 111/77 - Physical General Appearance: Yes: Mild Distress, Thin, Tremorous, Irritable, Sweating, Anxious HEENTM: Yes: Hearing grossly Normal (able to carry conversation), Normocephalic , Normal Voice, Pharynx Normal, Hearing Decreased (right ear) Respiratory: Yes: Chest Non-Tender, Decreased Breath Sounds, No Accessory Muscle Use, Rhonchi, Wheezing, Expiration Neck: Yes: No masses,lesions,Nodules, Supple, Trachea in good position Breast: Yes: Within Normal Limits, Axillae without masses, Breasts Symetrical, No Discharge Cardiology: Yes: Regular Rhythm, S1, S2, Tachycardia Abdominal: Yes: Non Tender, Flat, Increased Bowel Sounds Genitourinary: Yes: Within Normal Limits Back: Yes: Normal Inspection Musculoskeletal: Yes: full range of Motion, Gait Steady, Back pain, Muscle Pain Extremities: Yes: Normal Inspection, Normal Range of Motion, Non-Tender, Tremors Neurological: Yes: Fully Oriented, Alert, Motor Strength 5/5, Normal Response, Depressed Affect Integumentary: Yes: Normal Color, Warm Lymphatic: Yes: Within Normal Limits - Diagnostic (1) Alcohol dependence with withdrawal Current Visit: Yes Status: Acute Qualifiers: Complication of substance-induced condition: uncomplicated Qualified Code(s ): F10.230 - Alcohol dependence with withdrawal, uncomplicated (2) Nicotine dependence Current Visit: Yes Status: Acute Qualifiers: Nicotine product type: cigarettes Substance use status: in withdrawal Qualified Code(s): F17.213 - Nicotine dependence, cigarettes, with withdrawal (3) Opioid dependence with withdrawal Current Visit: Yes Status: Acute (4) Substance induced mood disorder Current Visit: Yes Status: Suspected (5) Asthma Current Visit: Yes Status: Chronic Qualifiers: Asthma severity: moderate Asthma complication type: with acute exacerbation Cleared for Admission [facility] - Detox or Rehab [facility] Level of Care: Medically Managed Detox Regimen/Protocol: Methadone/Librium Claeared for Rehab Admission: No Breathalyzer - Breathalyzer Breathalyzer: 0 Urine Drug Screen - Test Device Lot number: [id number] Expiration date: 11/10/20 - Control Is test valid?: Yes - Results Drug screen NEGATIVE: No Urine drug screen results: THC-Marijuana, CAROLA-Cocaine, MTD-Methadone Inpatient Rehab Admission - Rehab Decision to Admit Inpatient rehab admission?: No - Initial Determination Are CD services needed?: No Free of communicable disease: No Not in need of hospitalization: No - Rehab Admission Criteria Previous failed treatment: No Poor recovery environment: No Comorbidities: No Lacks judgement: No Patient is meeting Inpatient Rehab admission criteria:: No
[2019-01-19] MEDS ORDERED: METHADONE HCL 10 MG TABLET (FOR DETOX USE ONLY) PO SCH (10:00)
[2019-01-19] MEDS: chlordiazePOXIDE HCL 10 MG CAPSULE PO PRN ×2 (10:27→19:05)
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
[2019-01-19 12:30] LABS: PH,URINE 7.5 (5.0-8.0); URINE APPEARANCE CLEAR; URINE BILIRUBIN NEGATIVE (NEGATIVE); URINE COLOR YELLOW; URINE GLUCOSE (UA) NEGATIVE (NEGATIVE); URINE KETONE NEGATIVE (NEGATIVE); URINE LEUK ESTERASE NEGATIVE (NEGATIVE); URINE NITRITE NEGATIVE (NEGATIVE); URINE PROTEIN NEGATIVE (NEGATIVE); URINE UROBILINOGEN 0.2 mg/dL (0.2-1.0)
[2019-01-19] MEDS ORDERED: ALBUTEROL SO4 8 GM HFA INHALER IH PRN (15:18)
[2019-01-19] MEDS: NICOTINE POLACRILEX 2 MG GUM BUC PRN (15:27)
[2019-01-19] MEDS: cloNIDine HCL 0.1 MG TABLET PO PRN (17:23)
[2019-01-19] MEDS: QUEtiapine FUMARATE 50 MG TABLET PO SCH (22:28)
[2019-01-19] MEDS: LORATADINE 10 MG TABLET PO SCH (22:28)
[2019-01-19] MEDS: THIAMINE HCL 100 MG TABLET (FP) PO SCH (22:28)
[2019-01-20] MEDS: chlordiazePOXIDE 5 MG CAPSULE PO SCH ×3 (06:03→21:42)
[2019-01-20] MEDS: ALBUTEROL SO4 2.5/IPRATROPIUM 0.5 INH SOL 3 ML VIAL.NEB. NEB PRN (06:12)
[2019-01-20] MEDS ORDERED: METHADONE HCL 10 MG TABLET (FOR DETOX USE ONLY) ONE (08:09)
[2019-01-20] MEDS ORDERED: METHADONE HCL 5 MG TABLET (FOR DETOX USE ONLY) ONE (08:09)
[2019-01-20] MEDS: chlordiazePOXIDE HCL 10 MG CAPSULE PO PRN (08:52)
[2019-01-20] MEDS: METHOCARBAMOL 500 MG TABLET PO PRN ×2 (08:56→21:44)
[2019-01-20] MEDS: DICYCLOMINE HCL 10 MG CAPSULE PO PRN (08:56)
[2019-01-20] MEDS: PRENATAL VITAMINS W/ FOLIC ACID TABLET (FP) PO SCH (09:55)
[2019-01-20] MEDS: NICOTINE 21 MG/24 HOURS TOPICAL PATCH TD SCH (09:55)
[2019-01-20] MEDS: NICOTINE POLACRILEX 2 MG GUM BUC PRN ×2 (09:57→21:47)
[2019-01-20] MEDS ORDERED: METHADONE (DETOX) 20 MG, METHADONE (DETOX) 5 MG PO ONE (10:00)
[2019-01-20 10:09] LABS: HEMATOCRIT 43.9 % (32.4-45.2); HEMOGLOBIN 14.4 GM/dL (10.7-15.3); MCH 28.2 pg (25.7-33.7); MCHC 32.8 g/dl (32.0-36.0); MEAN CELL VOLUME 85.8 fl (80-96); MEAN PLT VOLUME 7.8 fl (7.5-11.1); PLATELET COUNT 555 K/MM3 (134-434); RBC 5.12 M/mm3 (3.60-5.2); RDW 15.1 % (11.6-15.6); WHITE BLOOD COUNT 7.6 K/mm3 (4.0-10.0)
[2019-01-20 10:10] LABS: ALBUMIN 3.2 g/dl (3.4-5.0); BILIRUBIN,TOTAL 0.2 mg/dL (0.2-1); BLOOD UREA NITROGEN 11.9 mg/dL (7-18); CALCIUM 9.5 mg/dL (8.5-10.1); CREATININE 0.8 mg/dL (0.55-1.3); POTASSIUM 4.6 mmol/L (3.5-5.1); TOT PROT 7.9 g/dl (6.4-8.2)
--- NOTE | 2019-01-20 10:11 | PN ---
S CIWA - CIWA Score Nausea/Vomitin-Mild Nausea/No Vomiting Muscle Tremors: 2 Anxiety: 3 Agitation: 3 Paroxysmal Sweats: 1-Minimal Palms Moist Orientation: 1-Uncertain about Date Tacttile Disturbances: 0-None Auditory Disturbances: 1-Very Mild Visual Disturbances: 0-None Headache: 2-Mild CIWA-Ar Total Score: 14 BHS COWS - Scale Resting Pulse: 4= [place] > 121 Sweatin= Chills/Flushing Restless Observation: 0= Sits Still Pupil Size: 0= Normal to Room Light Bone or Joint Aches: 0= None Runny Nose/ Eye Tearin= Runny Nose/Eyes GI Upset > 30mins: 2= Nausea/Diarrhea Tremor Observation of Outstretched Hands: 2= Slight Tremor Visible Yawning Observation: 1= 1-2x During Session Anxiety or Irritability: 2=Irritable/Anxious Goose Flesh Skin: 0=Smooth Skin COWS Score: 14 S Progress Note (SOAP) Subjective: tear ful about the voices telling her to use drug "to get high" emotional support x 5" team support approach based on long history of psychotropic medication management for mood disorder due to "strong" voices "to use drug" psychiatric consultation tremor frighten about own weakness to go out to use drug headaches anxiety Objective: 01/20/19 10:30 Vital Signs Temperature 96.4 F L 01/20/19 09:12 Pulse Rate 122 H 01/20/19 09:12 Respiratory Rate 18 01/20/19 09:12 Blood Pressure 109/81 01/20/19 09:12 O2 Sat by Pulse Oximetry (%) Laboratory Last Values WBC 7.6 K/mm3 (4.0-10.0) 01/20/19 07:50 RBC 5.12 M/mm3 (3.60-5.2) 01/20/19 07:50 Hgb 14.4 GM/dL (10.7-15.3) 01/20/19 07:50 Hct 43.9 % (32.4-45.2) D 01/20/19 07:50 MCV 85.8 fl (80-96) 01/20/19 07:50 MCH 28.2 pg (25.7-33.7) 01/20/19 07:50 MCHC 32.8 g/dl (32.0-36.0) 01/20/19 07:50 RDW 15.1 % (11.6-15.6) 01/20/19 07:50 Plt Count 555 K/MM3 (134-434) H 01/20/19 07:50 MPV 7.8 fl (7.5-11.1) 01/20/19 07:50 Sodium 140 mmol/L (136-145) 01/20/19 07:50 Potassium 4.6 mmol/L (3.5-5.1) 01/20/19 07:50 Chloride 107 mmol/L (98-107) 01/20/19 07:50 Carbon Dioxide 26 mmol/L (21-32) 01/20/19 07:50 Anion Gap 7 MMOL/L (8-16) L 01/20/19 07:50 BUN 11.9 mg/dL (7-18) 01/20/19 07:50 Creatinine 0.8 mg/dL (0.55-1.3) 01/20/19 07:50 Est GFR (CKD-EPI)AfAm 108.39 01/20/19 07:50 Est GFR (CKD-EPI)NonAf 93.52 01/20/19 07:50 Random Glucose 79 mg/dL (74-106) 01/20/19 07:50 Calcium 9.5 mg/dL (8.5-10.1) 01/20/19 07:50 Total Bilirubin 0.2 mg/dL (0.2-1) 01/20/19 07:50 AST 12 U/L (15-37) L 01/20/19 07:50 ALT 24 U/L (13-61) 01/20/19 07:50 Alkaline Phosphatase 119 U/L (45-117) H 01/20/19 07:50 Total Protein 7.9 g/dl (6.4-8.2) 01/20/19 07:50 Albumin 3.2 g/dl (3.4-5.0) L 01/20/19 07:50 Urine Color Yellow 01/19/19 10:25 Urine Appearance Clear 01/19/19 10:25 Urine pH 7.5 (5.0-8.0) 01/19/19 10:25 Ur Specific [place] 1.017 (1.010-1.035) 01/19/19 10:25 Urine Protein Negative (NEGATIVE) 01/19/19 10:25 Urine Glucose (UA) Negative (NEGATIVE) 01/19/19 10:25 Urine Ketones Negative (NEGATIVE) 01/19/19 10:25 Urine Blood Negative (NEGATIVE) 01/19/19 10:25 Urine Nitrite Negative (NEGATIVE) 01/19/19 10:25 Urine Bilirubin Negative (NEGATIVE) 01/19/19 10:25 Urine Urobilinogen 0.2 mg/dL (0.2-1.0) 01/19/19 10:25 Ur Leukocyte Esterase Negative (NEGATIVE) 01/19/19 10:25 POC Urine HCG, Qual Negative 01/18/19 23:23 lab noted denies tenderness of the calfs no shortness of breath 01/20/19 10:32 Assessment: 01/20/19 10:33 alcohol and opiate withdrawal sx Plan: continue alcohol and opiate detox
--- NOTE | 2019-01-20 14:22 | PN ---
Psychiatric Progress Note Vital Signs: Vital Signs Period Temp Pulse Resp BP Sys/Lincoln Pulse Ox Last 24 Hr 96.4 F-97.5 F 75-122 - 98-117/66-86 Date of Session: 01/20/19 Chief Complaint:: "I'm hearing voices telling different things" HPI: Patient with history of Schizophrenia and polysubstance use(alcohol, heroin , cocaine) admitted on 01/18/19 for inpatient detoxification. She was seen on by RON Mena and she was prescribed Seroquel 50 mg/hs Current Medications: Active Medications Generic Name Dose Route Start Last Admin Trade Name Freq PRN Reason Stop Dose Admin Acetaminophen 650 mg 01/19/19 02:14 Tylenol - PO Q6H PRN PAIN LEVEL 4 - 6 Acetaminophen 650 mg 01/19/19 02:14 Tylenol - PO Q6H PRN FEVER Al Hydroxide/Mg Hydroxide 30 ml 01/19/19 02:14 Mylanta Oral Suspension - PO Q6H PRN DYSPEPSIA Albuterol Sulfate 2 puff 01/19/19 15:18 Ventolin Hfa Inhaler - IH Q4H PRN SHORT OF BREATH/WHEEZING Albuterol/Ipratropium 1 amp 01/19/19 07:01 01/20/19 06:12 Duoneb - NEB 1 amp Q6H PRN Administration SHORTNESS OF BREATH Baclofen 10 mg 01/19/19 02:14 Lioresal - PO 01/25/19 02:17 Q8H PRN Muscle Spasms Chlordiazepoxide HCl 10 mg 01/21/19 00:00 Librium - PO 01/21/19 23:59 Q12H PRN Signs/symptoms of Withdrawal Chlordiazepoxide HCl 10 mg 01/19/19 02:14 01/20/19 08:52 Librium - PO 01/20/19 23:59 10 mg Q8H PRN Administration Signs/symptoms of Withdrawal Chlordiazepoxide HCl 15 mg 01/20/19 05:00 01/20/19 12:47 Librium - PO 01/20/19 21:01 15 mg Q8H KAREN Administration Chlordiazepoxide HCl 10 mg 01/21/19 05:00 Librium - PO 01/21/19 21:01 Q8H KAREN Chlordiazepoxide HCl 10 mg 01/22/19 05:00 Librium - PO 01/22/19 05:01 ONCE ONE Clonidine 0.1 mg 01/19/19 02:14 01/19/19 17:23 Catapres - PO 01/21/19 23:59 0.1 mg Q4H PRN Administration Withdrawal Symptoms Dicyclomine HCl 10 mg 01/19/19 02:14 01/20/19 08:56 Bentyl - PO 01/25/19 02:17 10 mg Q6H PRN Administration Abdominal Cramping Eucalyptus/Menthol/Phenol/Sorbitol 1 each 01/19/19 02:14 Cepastat Lozenge - MM 01/25/19 02:15 Q4H PRN SORE THROAT Loratadine 10 mg 01/19/19 22:00 01/19/19 22:28 Claritin - PO 10 mg HS KAREN Administration Magnesium Citrate 300 ml 01/19/19 02:14 Citroma - PO Q48H PRN CONSTIPATION Magnesium Hydroxide 30 ml 01/19/19 02:14 Milk Of Magnesia - PO PRN PRN CONSTIPATION Melatonin 5 mg 01/19/19 02:14 Melatonin PO HS PRN INSOMNIA Methadone HCl 10 mg/ Methadone 15 mg 01/22/19 10:00 HCl 5 mg PO 01/22/19 10:01 ONCE ONE Methadone HCl 5 mg 01/24/19 06:00 Dolophine - PO 01/24/19 06:01 ONCE@0600 ONE Methadone HCl 10 mg 01/23/19 10:00 Dolophine - PO 01/23/19 10:01 ONCE ONE Methadone HCl 20 mg 01/21/19 10:00 Dolophine - PO 01/21/19 10:01 ONCE ONE Methocarbamol 500 mg 01/19/19 02:14 01/20/19 08:56 Robaxin - PO 01/25/19 02:15 500 mg Q6H PRN Administration MUSCLE SPASMS Nicotine 21 mg 01/19/19 10:00 01/20/19 09:55 Nicoderm Patch - TD 21 mg DAILY KAREN Administration Nicotine Polacrilex 2 mg 01/19/19 02:14 01/20/19 09:57 Nicorette Gum - BUC 2 mg Q2H PRN Administration NICOTINE REPLACEMENT RX Ondansetron HCl 4 mg 01/19/19 02:14 Zofran Odt - SL 01/25/19 02:17 Q12H PRN Nausea/Vomiting Multivit/Folic Acid/Iron 1 tab 01/19/19 10:00 01/20/19 09:55 Vitamins (Sjr) - PO 1 tab DAILY KAREN Administration Pseudoephedrine/Triprolidine 1 combo 01/19/19 02:14 Actifed - PO 01/25/19 02:17 Q6H PRN NASAL CONGESTION Quetiapine Fumarate 50 mg 01/19/19 22:00 01/19/19 22:28 Seroquel - PO 50 mg HS KAREN Administration Quetiapine Fumarate 50 mg 01/20/19 14:01 Seroquel - PO 01/20/19 14:02 ONCE ONE Quetiapine Fumarate 100 mg 01/20/19 22:00 Seroquel - PO HS KAREN Thiamine HCl 100 mg 01/19/19 22:00 01/19/19 22:28 Vitamin B1 - PO 100 mg HS KAREN Administration Medication(s) Change(s): 1) D/C Seroquel 50 mg/hs. 2) Start Seroquel 50 mg po stat and Seroquel 100 mg po HS Current Side Effect: No Lab tests ordered: Yes Lab tests reviewed: Yes Provider note:: RON Mena's evaluation read and appreciated. Patient seen in Dr Mcfarland' office. She was alert, goal-directed but calm and cooperativelooked but sad, crying during the interview. Patient reports that since yesterday she has been under a lot of pressure from a male patient who wanted her to leave with him. She said that patient offered to buy her bundles of dope and cocaine. 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 She said she did not leave because she did not know him and was scared of how he might behave while intoxicated. She told investigative writer that all along she has been hearing voices. However under the pressure from that patient, these voices got worse. She denies feeling suicidal. Reports in November 2018, she was in ICU at [facility] and while she was seen by a psychiatrist. She said that she was prescribed medications by that psychiatrist. External medication history shows Scripts for 30 days supply of escitalopram 5 mg/day, Trazadone 100 mg/hs, Seroquel 100 mg/day & 200 mg/hs, Gabapentin 300 mg/bid filled on 12/10/18. Told investigative writer that she has been taking any medication since her discharge from [facility]. Mental Status Exam - Mental Status Exam Alert and Oriented to: Time, Place, Person Cognitive Function: Fair Patient Appearance: Well Groomed Mood: Depressed Affect: Appropriate Patient Behavior: Crying Speech Pattern: Clear Voice Loudness: Normal Thought Process: Intact, Goal Oriented Thought Disorder: Not Present Hallucinations: Auditory (hears vouces saying different things) Suicidal Ideation: Denies Homicidal Ideation: Denies Insight/Judgement: Poor Psychiatric Treatment Plan - Problem List (1) Schizophrenia Current Visit: Yes (2) Substance induced mood disorder Current Visit: Yes (3) Substance-induced sleep disorder Current Visit: Yes (4) Alcohol dependence with withdrawal Current Visit: Yes Qualifiers: Complication of substance-induced condition: uncomplicated Qualified Code(s ): F10.230 - Alcohol dependence with withdrawal, uncomplicated (5) Opioid dependence with withdrawal Current Visit: Yes (6) Cocaine dependence Current Visit: No Qualifiers: Substance use status: uncomplicated Qualified Code(s): F14.20 - Cocaine dependence, uncomplicated (7) Nicotine dependence Current Visit: Yes Qualifiers: Nicotine product type: cigarettes Substance use status: in withdrawal Qualified Code(s): F17.213 - Nicotine dependence, cigarettes, with withdrawal (8) Asthma Current Visit: Yes Qualifiers: Asthma severity: moderate Asthma complication type: with acute exacerbation Initial treatment plan: 1) Discontinue Seroquel 50 mg po HS. 2) Start Seroquel 50 mg po stat and Seroquel 100 mg po HS. 3) Continue inpatient detoxification
[2019-01-20] MEDS ORDERED: QUEtiapine FUMARATE 25 MG TABLET (FP) PO ONE (14:30)
[2019-01-20] MEDS ORDERED: PNEUMOC 13-VAL CONJ-DIP CRM/PF 0.5 ML DISP.SYRIN IM ONE (14:41)
[2019-01-20] MEDS: THIAMINE HCL 100 MG TABLET (FP) PO SCH (21:42)
[2019-01-20] MEDS: QUEtiapine FUMARATE 50 MG TABLET PO SCH (21:43)
[2019-01-20] MEDS: LORATADINE 10 MG TABLET PO SCH (21:43)
[2019-01-20] MEDS: QUEtiapine FUMARATE 100 MG TABLET (FP) PO SCH (21:43)
[2019-01-21] MEDS ORDERED: chlordiazePOXIDE HCL 10 MG CAPSULE PO PRN
[2019-01-21] MEDS: chlordiazePOXIDE HCL 10 MG CAPSULE PO SCH ×3 (06:14→22:02)
[2019-01-21] MEDS ORDERED: METHADONE HCL 10 MG TABLET (FOR DETOX USE ONLY) PO ONE (10:00)
[2019-01-21] MEDS: NICOTINE 21 MG/24 HOURS TOPICAL PATCH TD SCH (10:57)
[2019-01-21] MEDS: PRENATAL VITAMINS W/ FOLIC ACID TABLET (FP) PO SCH (10:57)
[2019-01-21] MEDS: METHOCARBAMOL 500 MG TABLET PO PRN ×2 (11:05→18:18)
[2019-01-21] MEDS: NICOTINE POLACRILEX 2 MG GUM BUC PRN (11:05)
--- NOTE | 2019-01-21 11:12 | PN ---
S CIWA - CIWA Score Nausea/Vomitin-Mild Nausea/No Vomiting Muscle Tremors: 2 Anxiety: 3 Agitation: 2 Paroxysmal Sweats: 1-Minimal Palms Moist Orientation: 1-Uncertain about Date Tacttile Disturbances: 1-Very Mild Itch/Numbness Auditory Disturbances: 1-Very Mild Visual Disturbances: 0-None Headache: 0-None Present CIWA-Ar Total Score: 12 S COWS - Scale Resting Pulse: 0= [place] 80 or Below Sweatin= Chills/Flushing Restless Observation: 0= Sits Still Pupil Size: 0= Normal to Room Light Bone or Joint Aches: 1= Mild Discomfort Runny Nose/ Eye Tearin= Nasal Congestion GI Upset > 30mins: 2= Nausea/Diarrhea Tremor Observation of Outstretched Hands: 2= Slight Tremor Visible Yawning Observation: 1= 1-2x During Session Anxiety or Irritability: 2=Irritable/Anxious Goose Flesh Skin: 0=Smooth Skin COWS Score: 10 S Progress Note (SOAP) Subjective: 38 years old female admitted on 01/19/19 for alcohol and opiate withdrawal sx history of asthma and substance misuse mood disorder doing better today calm and sleep throughout the night less tremor mild anxiety Objective: 01/21/19 11:11 Vital Signs Temperature 97.1 F L 01/21/19 10:44 Pulse Rate 65 01/21/19 10:44 Respiratory Rate 19 01/21/19 10:44 Blood Pressure 133/79 01/21/19 10:44 O2 Sat by Pulse Oximetry (%) Laboratory Last Values WBC 7.6 K/mm3 (4.0-10.0) 01/20/19 07:50 RBC 5.12 M/mm3 (3.60-5.2) 01/20/19 07:50 Hgb 14.4 GM/dL (10.7-15.3) 01/20/19 07:50 Hct 43.9 % (32.4-45.2) D 01/20/19 07:50 MCV 85.8 fl (80-96) 01/20/19 07:50 MCH 28.2 pg (25.7-33.7) 01/20/19 07:50 MCHC 32.8 g/dl (32.0-36.0) 01/20/19 07:50 RDW 15.1 % (11.6-15.6) 01/20/19 07:50 Plt Count 555 K/MM3 (134-434) H 01/20/19 07:50 MPV 7.8 fl (7.5-11.1) 01/20/19 07:50 Sodium 140 mmol/L (136-145) 01/20/19 07:50 Potassium 4.6 mmol/L (3.5-5.1) 01/20/19 07:50 Chloride 107 mmol/L (98-107) 01/20/19 07:50 Carbon Dioxide 26 mmol/L (21-32) 01/20/19 07:50 Anion Gap 7 MMOL/L (8-16) L 01/20/19 07:50 BUN 11.9 mg/dL (7-18) 01/20/19 07:50 Creatinine 0.8 mg/dL (0.55-1.3) 01/20/19 07:50 Est GFR (CKD-EPI)AfAm 108.39 01/20/19 07:50 Est GFR (CKD-EPI)NonAf 93.52 01/20/19 07:50 Random Glucose 79 mg/dL (74-106) 01/20/19 07:50 Calcium 9.5 mg/dL (8.5-10.1) 01/20/19 07:50 Total Bilirubin 0.2 mg/dL (0.2-1) 01/20/19 07:50 AST 12 U/L (15-37) L 01/20/19 07:50 ALT 24 U/L (13-61) 01/20/19 07:50 Alkaline Phosphatase 119 U/L (45-117) H 01/20/19 07:50 Total Protein 7.9 g/dl (6.4-8.2) 01/20/19 07:50 Albumin 3.2 g/dl (3.4-5.0) L 01/20/19 07:50 Urine Color Yellow 01/19/19 10:25 Urine Appearance Clear 01/19/19 10:25 Urine pH 7.5 (5.0-8.0) 01/19/19 10:25 Ur Specific [place] 1.017 (1.010-1.035) 01/19/19 10:25 Urine Protein Negative (NEGATIVE) 01/19/19 10:25 Urine Glucose (UA) Negative (NEGATIVE) 01/19/19 10:25 Urine Ketones Negative (NEGATIVE) 01/19/19 10:25 Urine Blood Negative (NEGATIVE) 01/19/19 10:25 Urine Nitrite Negative (NEGATIVE) 01/19/19 10:25 Urine Bilirubin Negative (NEGATIVE) 01/19/19 10:25 Urine Urobilinogen 0.2 mg/dL (0.2-1.0) 01/19/19 10:25 Ur Leukocyte Esterase Negative (NEGATIVE) 01/19/19 10:25 POC Urine HCG, Qual Negative 01/18/19 23:23 RPR Titer Nonreactive (NONREACTIVE) 01/20/19 07:50 lab noted Assessment: 01/21/19 11:11 alcohol and opiate withdrawal sx Plan: continue alcohol and opiate detox patient seen by psychiatrist begin seroquel 100 mg po hs discontinue seroquel 50 mg po hs
[2019-01-21] MEDS ORDERED: PNEUMOCOCCAL 23 VACCINE 0.5 ML VIAL IM ONE (12:00)
[2019-01-21] MEDS: cloNIDine HCL 0.1 MG TABLET PO PRN ×2 (13:37→22:02)
[2019-01-21] MEDS: BACLOFEN 10 MG TABLET (FP) PO PRN (18:17)
[2019-01-21] MEDS: DICYCLOMINE HCL 10 MG CAPSULE PO PRN (18:17)
[2019-01-21] MEDS: ALBUTEROL SO4 2.5/IPRATROPIUM 0.5 INH SOL 3 ML VIAL.NEB. NEB PRN (18:27)
[2019-01-21] MEDS: QUEtiapine FUMARATE 100 MG TABLET (FP) PO SCH (22:01)
[2019-01-21] MEDS: LORATADINE 10 MG TABLET PO SCH (22:01)
[2019-01-21] MEDS: THIAMINE HCL 100 MG TABLET (FP) PO SCH (22:01)
[2019-01-22] MEDS ORDERED: chlordiazePOXIDE HCL 10 MG CAPSULE PO ONE ×2 (05:00→12:30)
[2019-01-22] MEDS ORDERED: METHADONE HCL 10 MG TABLET (FOR DETOX USE ONLY) ONE (08:24)
[2019-01-22] MEDS ORDERED: METHADONE HCL 5 MG TABLET (FOR DETOX USE ONLY) ONE (08:25)
[2019-01-22] MEDS: DICYCLOMINE HCL 10 MG CAPSULE PO PRN (09:06)
[2019-01-22] MEDS: METHOCARBAMOL 500 MG TABLET PO PRN ×2 (09:07→18:49)
[2019-01-22] MEDS ORDERED: METHADONE (DETOX) 10 MG, METHADONE (DETOX) 5 MG PO ONE (10:00)
[2019-01-22] MEDS: NICOTINE 21 MG/24 HOURS TOPICAL PATCH TD SCH (10:35)
[2019-01-22] MEDS: PRENATAL VITAMINS W/ FOLIC ACID TABLET (FP) PO SCH (10:35)
[2019-01-22] MEDS: NICOTINE POLACRILEX 2 MG GUM BUC PRN (10:37)
--- NOTE | 2019-01-22 12:15 | PN ---
[facility] CIWA - CIWA Score Nausea/Vomitin Muscle Tremors: 2 Anxiety: 2 Agitation: 2 Paroxysmal Sweats: No Perspiration Orientation: 0-Oriented Tacttile Disturbances: 1-Very Mild Itch/Numbness Auditory Disturbances: 1-Very Mild Visual Disturbances: 0-None Headache: 1-Very Mild CIWA-Ar Total Score: 11 BHS COWS - Scale Resting Pulse: 2= [place] 101-120 Sweatin= Chills/Flushing Restless Observation: 1= Difficult to Sit Still Pupil Size: 1= Pupils >than Normal Bone or Joint Aches: 2= Severe Diffuse Aches Runny Nose/ Eye Tearin= Runny Nose/Eyes GI Upset > 30mins: 2= Nausea/Diarrhea Tremor Observation of Outstretched Hands: 2= Slight Tremor Visible Yawning Observation: 1= 1-2x During Session Anxiety or Irritability: 1=Feels Anxious/Irritable Goose Flesh Skin: 0=Smooth Skin COWS Score: 15 S Progress Note (SOAP) Subjective: alert,irritable,anxious,interrupted sleep,tremor,pain in the body and back, Objective: 01/22/19 12:16 Vital Signs Temperature 99.8 F H 01/22/19 09:26 Pulse Rate 111 H 01/22/19 09:26 Respiratory Rate 18 01/22/19 09:26 Blood Pressure 108/72 01/22/19 09:26 O2 Sat by Pulse Oximetry (%) Assessment: 01/22/19 12:17 withdrawal symptom Plan: continue detox,missing the dose of librium,librium 10 mgs po now and atarax 25 mgs po q 6hrs prn for anxiety
[2019-01-22] MEDS ORDERED: hydrOXYzine HCL 25 MG TABLET (FP) PO ONE (12:19)
[2019-01-22] MEDS ORDERED: cloNIDine HCL 0.1 MG TABLET PO ONE (12:21)
[2019-01-22] MEDS: ALBUTEROL SO4 2.5/IPRATROPIUM 0.5 INH SOL 3 ML VIAL.NEB. NEB PRN (12:46)
[2019-01-22] MEDS: BACLOFEN 10 MG TABLET (FP) PO PRN (18:48)
[2019-01-22] MEDS ORDERED: QUEtiapine FUMARATE 25 MG TABLET (FP) PO ONE (19:15)
--- NOTE | 2019-01-22 19:22 | PN ---
S Progress Note Note: Psychiatrist salesperson burial needs note Called by nursing staff reporting that patient is crying saying that she is hearing voices telling her to go outside and get high. Reportedly the voices are also telling her to hurt self and others. However according to nursing staff she said that she did not to hurt herself or anyone else. Patient is currently on Seroquel 100 mg/hs. Will increase Seroquel to 200 mg/hs and add a prn order for Seroquel 25 mg Q6hrs for agitation/psychosis
[2019-01-22] MEDS: LORATADINE 10 MG TABLET PO SCH (22:43)
[2019-01-22] MEDS: QUEtiapine FUMARATE 200 MG TABLET PO SCH (22:44)
[2019-01-22] MEDS: THIAMINE HCL 100 MG TABLET (FP) PO SCH (22:44)
[2019-01-23] MEDS: METHOCARBAMOL 500 MG TABLET PO PRN ×3 (02:23→15:37)
[2019-01-23] MEDS: QUEtiapine FUMARATE 25 MG TABLET (FP) PO PRN ×2 (02:23→10:02)
[2019-01-23] MEDS: DICYCLOMINE HCL 10 MG CAPSULE PO PRN (08:40)
[2019-01-23] MEDS: hydrOXYzine HCL 25 MG TABLET (FP) PO PRN ×3 (08:40→22:03)
[2019-01-23] MEDS: NICOTINE POLACRILEX 2 MG GUM BUC PRN ×2 (08:41→22:04)
[2019-01-23] MEDS ORDERED: METHADONE HCL 10 MG TABLET (FOR DETOX USE ONLY) PO ONE (10:00)
[2019-01-23] MEDS: NICOTINE 21 MG/24 HOURS TOPICAL PATCH TD SCH (10:02)
[2019-01-23] MEDS: PRENATAL VITAMINS W/ FOLIC ACID TABLET (FP) PO SCH (10:02)
[2019-01-23] MEDS: ALBUTEROL SO4 2.5/IPRATROPIUM 0.5 INH SOL 3 ML VIAL.NEB. NEB PRN (11:36)
[2019-01-23] MEDS: BACLOFEN 10 MG TABLET (FP) PO PRN ×2 (14:26→22:03)
--- NOTE | 2019-01-23 16:13 | PN ---
S CIWA - CIWA Score Nausea/Vomitin (Stomach Cramping.) Muscle Tremors: 2 Anxiety: 4-Mod. Anxious/Guarded Agitation: 1-Slight > Activity Paroxysmal Sweats: 2 Orientation: 0-Oriented Tacttile Disturbances: 2-Mild Itch/Numbness/Burn Auditory Disturbances: 0-None Visual Disturbances: 0-None Headache: 0-None Present CIWA-Ar Total Score: 13 BHS COWS - Scale Resting Pulse: 2= [place] 101-120 Sweatin= Chills/Flushing Restless Observation: 1= Difficult to Sit Still Pupil Size: 0= Normal to Room Light Bone or Joint Aches: 2= Severe Diffuse Aches Runny Nose/ Eye Tearin= Runny Nose/Eyes GI Upset > 30mins: 2= Nausea/Diarrhea Tremor Observation of Outstretched Hands: 2= Slight Tremor Visible Yawning Observation: 2= >3x During Session Anxiety or Irritability: 2=Irritable/Anxious Goose Flesh Skin: 0=Smooth Skin COWS Score: 16 BHS Progress Note (SOAP) Subjective: Tremors, Anxious, Diarrhea, Sweating, Runny Nose, Fatigue, Interrupted Sleep, Stomach Cramping, Hot / Cold Sensations, Body Aches. Objective: PATIENT A & O X 3, OBSERVED AMBULATING ON UNIT UNASSISTED. IN NO ACUTE DISTRESS. 01/23/19 16:11 Vital Signs Temperature 97.6 F 01/23/19 14:40 Pulse Rate 114 H 01/23/19 14:40 Respiratory Rate 18 01/23/19 14:40 Blood Pressure 115/82 01/23/19 14:40 O2 Sat by Pulse Oximetry (%) Laboratory Tests 01/18/19 01/19/19 01/20/19 23:23 10:25 07:50 WBC 7.6 RBC 5.12 Hgb 14.4 Hct 43.9 D MCV 85.8 MCH 28.2 MCHC 32.8 RDW 15.1 Plt Count 555 H MPV 7.8 Sodium Potassium Chloride Carbon Dioxide Anion Gap BUN Creatinine Est GFR (CKD-EPI)AfAm Est GFR (CKD-EPI)NonAf Random Glucose Calcium Total Bilirubin AST ALT Alkaline Phosphatase Total Protein Albumin Urine Color Yellow Urine Appearance Clear Urine pH 7.5 Ur Specific [place] 1.017 Urine Protein Negative Urine Glucose (UA) Negative Urine Ketones Negative Urine Blood Negative Urine Nitrite Negative Urine Bilirubin Negative Urine Urobilinogen 0.2 Ur Leukocyte Esterase Negative POC Urine HCG, Qual Negative RPR Titer 01/20/19 01/20/19 07:50 07:50 WBC RBC Hgb Hct MCV MCH MCHC RDW Plt Count MPV Sodium 140 Potassium 4.6 Chloride 107 Carbon Dioxide 26 Anion Gap 7 L BUN 11.9 Creatinine 0.8 Est GFR (CKD-EPI)AfAm 108.39 Est GFR (CKD-EPI)NonAf 93.52 Random Glucose 79 Calcium 9.5 Total Bilirubin 0.2 AST 12 L ALT 24 Alkaline Phosphatase 119 H Total Protein 7.9 Albumin 3.2 L Urine Color Urine Appearance Urine pH Ur Specific [place] Urine Protein Urine Glucose (UA) Urine Ketones Urine Blood Urine Nitrite Urine Bilirubin Urine Urobilinogen Ur Leukocyte Esterase POC Urine HCG, Qual RPR Titer Nonreactive LABS NOTED. Assessment: 01/23/19 16:12 WITHDRAWAL SYMPTOMS. Plan: CONTINUE DETOX. INCREASE DAILY PO WATER INTAKE. PRN PEPTO-BISMOL PO FOR DIARRHEA. PRN ZOFRAN SL FOR NAUSEA.
[2019-01-23] MEDS: LORATADINE 10 MG TABLET PO SCH (22:03)
[2019-01-23] MEDS: THIAMINE HCL 100 MG TABLET (FP) PO SCH (22:03)
[2019-01-23] MEDS: QUEtiapine FUMARATE 200 MG TABLET PO SCH (22:03)
[2019-01-24] MEDS ORDERED: METHADONE HCL 5 MG TABLET (FOR DETOX USE ONLY) PO ONE (06:00)
[2019-01-24] MEDS: QUEtiapine FUMARATE 25 MG TABLET (FP) PO PRN ×3 (06:02→18:12)
[2019-01-24] MEDS: METHOCARBAMOL 500 MG TABLET PO PRN ×3 (06:02→18:12)
[2019-01-24] MEDS: NICOTINE POLACRILEX 2 MG GUM BUC PRN ×3 (09:29→22:44)
[2019-01-24] MEDS: NICOTINE 21 MG/24 HOURS TOPICAL PATCH TD SCH (09:29)
[2019-01-24] MEDS: PRENATAL VITAMINS W/ FOLIC ACID TABLET (FP) PO SCH (09:29)
[2019-01-24] MEDS: hydrOXYzine HCL 25 MG TABLET (FP) PO PRN ×3 (09:29→22:43)
[2019-01-24] MEDS: BACLOFEN 10 MG TABLET (FP) PO PRN ×2 (09:29→18:12)
--- NOTE | 2019-01-24 10:55 | PN ---
[facility] CIWA - CIWA Score Nausea/Vomitin-No Nausea/No Vomiting Muscle Tremors: 2 Anxiety: 4-Mod. Anxious/Guarded Agitation: 3 Paroxysmal Sweats: No Perspiration Orientation: 0-Oriented Tacttile Disturbances: 0-None Auditory Disturbances: 0-None Visual Disturbances: 0-None Headache: 0-None Present CIWA-Ar Total Score: 9 S COWS - Scale Resting Pulse: 2= [place] 101-120 Sweatin= No chills or Flushing Restless Observation: 0= Sits Still Pupil Size: 0= Normal to Room Light Bone or Joint Aches: 2= Severe Diffuse Aches Runny Nose/ Eye Tearin= Nasal Congestion GI Upset > 30mins: 1= Stomach Cramp Tremor Observation of Outstretched Hands: 2= Slight Tremor Visible Yawning Observation: 2= >3x During Session Anxiety or Irritability: 2=Irritable/Anxious Goose Flesh Skin: 0=Smooth Skin COWS Score: 12 S Progress Note (SOAP) Subjective: patient requests to be seen by a psychiatrist due to "hearling voices" undetermine the gender and content of the voices patient is alert reality based behavior self care independent social with peers in day room 38 years old female admitted on 01/19/19 for alcohol and opiate withdrawal sx medical history of asthma and bipolar II feeling less tremor mild sweating but anxious about relapse emotional support trigger identified Objective: 01/24/19 15:52 Vital Signs Temperature 97.3 F L 01/24/19 13:36 Pulse Rate 120 H 01/24/19 13:36 Respiratory Rate 20 01/24/19 13:36 Blood Pressure 116/74 01/24/19 13:36 O2 Sat by Pulse Oximetry (%) Laboratory Last Values WBC 7.6 K/mm3 (4.0-10.0) 01/20/19 07:50 RBC 5.12 M/mm3 (3.60-5.2) 01/20/19 07:50 Hgb 14.4 GM/dL (10.7-15.3) 01/20/19 07:50 Hct 43.9 % (32.4-45.2) D 01/20/19 07:50 MCV 85.8 fl (80-96) 01/20/19 07:50 MCH 28.2 pg (25.7-33.7) 01/20/19 07:50 MCHC 32.8 g/dl (32.0-36.0) 01/20/19 07:50 RDW 15.1 % (11.6-15.6) 01/20/19 07:50 Plt Count 555 K/MM3 (134-434) H 01/20/19 07:50 MPV 7.8 fl (7.5-11.1) 01/20/19 07:50 Sodium 140 mmol/L (136-145) 01/20/19 07:50 Potassium 4.6 mmol/L (3.5-5.1) 01/20/19 07:50 Chloride 107 mmol/L (98-107) 01/20/19 07:50 Carbon Dioxide 26 mmol/L (21-32) 01/20/19 07:50 Anion Gap 7 MMOL/L (8-16) L 01/20/19 07:50 BUN 11.9 mg/dL (7-18) 01/20/19 07:50 Creatinine 0.8 mg/dL (0.55-1.3) 01/20/19 07:50 Est GFR (CKD-EPI)AfAm 108.39 01/20/19 07:50 Est GFR (CKD-EPI)NonAf 93.52 01/20/19 07:50 Random Glucose 79 mg/dL (74-106) 01/20/19 07:50 Calcium 9.5 mg/dL (8.5-10.1) 01/20/19 07:50 Total Bilirubin 0.2 mg/dL (0.2-1) 01/20/19 07:50 AST 12 U/L (15-37) L 01/20/19 07:50 ALT 24 U/L (13-61) 01/20/19 07:50 Alkaline Phosphatase 119 U/L (45-117) H 01/20/19 07:50 Total Protein 7.9 g/dl (6.4-8.2) 01/20/19 07:50 Albumin 3.2 g/dl (3.4-5.0) L 01/20/19 07:50 Urine Color Yellow 01/19/19 10:25 Urine Appearance Clear 01/19/19 10:25 Urine pH 7.5 (5.0-8.0) 01/19/19 10:25 Ur Specific [place] 1.017 (1.010-1.035) 01/19/19 10:25 Urine Protein Negative (NEGATIVE) 01/19/19 10:25 Urine Glucose (UA) Negative (NEGATIVE) 01/19/19 10:25 Urine Ketones Negative (NEGATIVE) 01/19/19 10:25 Urine Blood Negative (NEGATIVE) 01/19/19 10:25 Urine Nitrite Negative (NEGATIVE) 01/19/19 10:25 Urine Bilirubin Negative (NEGATIVE) 01/19/19 10:25 Urine Urobilinogen 0.2 mg/dL (0.2-1.0) 01/19/19 10:25 Ur Leukocyte Esterase Negative (NEGATIVE) 01/19/19 10:25 POC Urine HCG, Qual Negative 01/18/19 23:23 RPR Titer Nonreactive (NONREACTIVE) 01/20/19 07:50 lab noted Assessment: 01/24/19 15:52 alcohol and opiate withdrawal sx Plan: continue alcohol and opiate detox
[2019-01-24] MEDS: LIDOCAINE 5% TOPICAL PATCH TP SCH (12:44)
[2019-01-24] MEDS: ACETAMINOPHEN 325 MG TABLET (FP) PO PRN (15:59)
[2019-01-24] MEDS ORDERED: LIDOCAINE PATCH REMOVAL MC SCH (22:00)
[2019-01-24] MEDS: QUEtiapine FUMARATE 200 MG TABLET PO SCH (22:41)
[2019-01-24] MEDS: THIAMINE HCL 100 MG TABLET (FP) PO SCH (22:41)
[2019-01-24] MEDS: LORATADINE 10 MG TABLET PO SCH (22:41)
[2019-01-25] MEDS: ACETAMINOPHEN 325 MG TABLET (FP) PO PRN (04:11)
[2019-01-25] MEDS: QUEtiapine FUMARATE 25 MG TABLET (FP) PO PRN ×2 (04:12→10:37)
[2019-01-25 09:10] VITALS: BP 101/71; PULSE 111; TEMP 97.7
[2019-01-25] MEDS: LIDOCAINE 5% TOPICAL PATCH TP SCH (10:30)
[2019-01-25] MEDS: NICOTINE 21 MG/24 HOURS TOPICAL PATCH TD SCH (10:30)
[2019-01-25] MEDS: PRENATAL VITAMINS W/ FOLIC ACID TABLET (FP) PO SCH (10:31)
[2019-01-25] MEDS: hydrOXYzine HCL 25 MG TABLET (FP) PO PRN (10:37)
[2019-01-25] MEDS ORDERED: METHOCARBAMOL 500 MG TABLET PO ONE (11:15)
--- NOTE | 2019-01-25 11:20 | PN ---
Psychiatric Progress Note Vital Signs: Vital Signs Period Temp Pulse Resp BP Sys/Lincoln Pulse Ox Last 24 Hr 97.3 F-99.5 F 106-131 18-20 101-123/67-93 Date of Session: 01/25/19 Chief Complaint:: " I feel better. I'm not hearing voices." HPI: Patient admitted to for opiate dependence. Patient no longer reporting auditory hallucinations. ROS: Patient is coherent, alert and oriented x3. Current Medications: Active Medications Generic Name Dose Route Start Last Admin Trade Name Freq PRN Reason Stop Dose Admin Acetaminophen 650 mg 01/19/19 02:14 01/25/19 04:11 Tylenol - PO 650 mg Q6H PRN Administration PAIN LEVEL 4 - 6 Acetaminophen 650 mg 01/19/19 02:14 Tylenol - PO Q6H PRN FEVER Al Hydroxide/Mg Hydroxide 30 ml 01/19/19 02:14 Mylanta Oral Suspension - PO Q6H PRN DYSPEPSIA Albuterol Sulfate 2 puff 01/19/19 15:18 Ventolin Hfa Inhaler - IH Q4H PRN SHORT OF BREATH/WHEEZING Hydroxyzine HCl 25 mg 01/22/19 12:20 01/25/19 10:37 Atarax - PO 25 mg Q6H PRN Administration ANXIETY Lidocaine 1 patch 01/24/19 11:30 01/25/19 10:30 Lidoderm Patch - TP 1 patch DAILY KAREN Administration Loratadine 10 mg 01/19/19 22:00 01/24/19 22:41 Claritin - PO 10 mg HS KAREN Administration Magnesium Citrate 300 ml 01/19/19 02:14 Citroma - PO Q48H PRN CONSTIPATION Magnesium Hydroxide 30 ml 01/19/19 02:14 Milk Of Magnesia - PO PRN PRN CONSTIPATION Melatonin 5 mg 01/19/19 02:14 Melatonin PO HS PRN INSOMNIA Methocarbamol 500 mg 01/25/19 11:15 Robaxin - PO 01/25/19 11:16 ONCE ONE Miscellaneous 1 each 01/24/19 22:00 01/24/19 22:45 Lidoderm Patch Removal MC Not Given DAILY@2200 KAREN Nicotine 21 mg 01/19/19 10:00 01/25/19 10:30 Nicoderm Patch - TD 21 mg DAILY KAREN Administration Nicotine Polacrilex 2 mg 01/19/19 02:14 01/24/19 22:44 Nicorette Gum - BUC 2 mg Q2H PRN Administration NICOTINE REPLACEMENT RX Multivit/Folic Acid/Iron 1 tab 01/19/19 10:00 01/25/19 10:31 Vitamins (Sjr) - PO 1 tab DAILY KAREN Administration Quetiapine Fumarate 25 mg 01/22/19 19:12 01/25/19 10:37 Seroquel - PO 25 mg Q6H PRN Administration AGITATION Quetiapine Fumarate 200 mg 01/22/19 22:00 01/24/19 22:41 Seroquel - PO 200 mg HS KAREN Administration Thiamine HCl 100 mg 01/19/19 22:00 01/24/19 22:41 Vitamin B1 - PO 100 mg HS KAREN Administration Medication(s) Change(s): No. Current Side Effect: No Lab tests ordered: No Lab tests reviewed: Yes Provider note:: Psychiatric consultation ordered yesterday after patient continued to report auditory hallucinations. Patient seen by freelance writer this morning. Patient reports stable mood. She denies auditory/visual hallucinations. States that the seroquel 200mg HS was an adequate dose but stated that she couldve used more seroquel prn to take "the edge off". Patient educated on the importance of utilizing her coping skills when she becomes anxious, restless, or irritable. Patient to be transferred to [facility]. She denies thoughts to hurt self or others. Total face to face time:: 20 Mental Status Exam - Mental Status Exam Alert and Oriented to: Time, Place, Person Cognitive Function: Good Patient Appearance: Well Groomed Mood: Hopeful, Euthymic Affect: Mood Congruent Patient Behavior: Cooperative Speech Pattern: Appropriate Voice Loudness: Normal Thought Process: Goal Oriented Thought Disorder: Not Present Hallucinations: Denies Suicidal Ideation: Denies Homicidal Ideation: Denies Insight/Judgement: Poor Sleep: Fair Appetite: Fair Muscle strength/Tone: Normal Gait/Station: Normal Psychiatric Treatment Plan - Problem List (1) Schizophrenia Current Visit: Yes (2) Alcohol dependence with withdrawal Current Visit: Yes Qualifiers: Complication of substance-induced condition: uncomplicated Qualified Code(s ): F10.230 - Alcohol dependence with withdrawal, uncomplicated (3) Nicotine dependence Current Visit: Yes Qualifiers: Nicotine product type: cigarettes Substance use status: in withdrawal Qualified Code(s): F17.213 - Nicotine dependence, cigarettes, with withdrawal (4) Opioid dependence with withdrawal Current Visit: Yes (5) Substance induced mood disorder Current Visit: Yes (6) Personality disorder Current Visit: Yes (7) Substance-induced sleep disorder Current Visit: Yes
--- NOTE | 2019-01-25 16:09 | DS ---
[facility] Detox Discharge Summary Admission Date: 01/19/19 Discharge Date: 01/25/19 - History Present History: Alcohol Dependence, Opioid Dependence Additional Comments: 38 years old female admitted on 01/18/19 for alcohol and opiate withdrawal sx medical history of asthma and bipolar II self care neglect during drug using asthma episode and labile mood patient was doing well throughout the detox stay determines to maintain sober aftercare [facility] - Physical Exam Results Vital Signs: Vital Signs Temperature 97.7 F 01/25/19 09:09 Pulse Rate 111 H 01/25/19 09:09 Respiratory Rate 18 01/25/19 09:09 Blood Pressure 101/71 01/25/19 09:09 O2 Sat by Pulse Oximetry (%) Pertinent Admission Physical Exam Findings: alcohol and opiate withdrawal sx Laboratory Last Values WBC 7.6 K/mm3 (4.0-10.0) 01/20/19 07:50 RBC 5.12 M/mm3 (3.60-5.2) 01/20/19 07:50 Hgb 14.4 GM/dL (10.7-15.3) 01/20/19 07:50 Hct 43.9 % (32.4-45.2) D 01/20/19 07:50 MCV 85.8 fl (80-96) 01/20/19 07:50 MCH 28.2 pg (25.7-33.7) 01/20/19 07:50 MCHC 32.8 g/dl (32.0-36.0) 01/20/19 07:50 RDW 15.1 % (11.6-15.6) 01/20/19 07:50 Plt Count 555 K/MM3 (134-434) H 01/20/19 07:50 MPV 7.8 fl (7.5-11.1) 01/20/19 07:50 Sodium 140 mmol/L (136-145) 01/20/19 07:50 Potassium 4.6 mmol/L (3.5-5.1) 01/20/19 07:50 Chloride 107 mmol/L (98-107) 01/20/19 07:50 Carbon Dioxide 26 mmol/L (21-32) 01/20/19 07:50 Anion Gap 7 MMOL/L (8-16) L 01/20/19 07:50 BUN 11.9 mg/dL (7-18) 01/20/19 07:50 Creatinine 0.8 mg/dL (0.55-1.3) 01/20/19 07:50 Est GFR (CKD-EPI)AfAm 108.39 01/20/19 07:50 Est GFR (CKD-EPI)NonAf 93.52 01/20/19 07:50 Random Glucose 79 mg/dL (74-106) 01/20/19 07:50 Calcium 9.5 mg/dL (8.5-10.1) 01/20/19 07:50 Total Bilirubin 0.2 mg/dL (0.2-1) 01/20/19 07:50 AST 12 U/L (15-37) L 01/20/19 07:50 ALT 24 U/L (13-61) 01/20/19 07:50 Alkaline Phosphatase 119 U/L (45-117) H 01/20/19 07:50 Total Protein 7.9 g/dl (6.4-8.2) 01/20/19 07:50 Albumin 3.2 g/dl (3.4-5.0) L 01/20/19 07:50 Urine Color Yellow 01/19/19 10:25 Urine Appearance Clear 01/19/19 10:25 Urine pH 7.5 (5.0-8.0) 01/19/19 10:25 Ur Specific [place] 1.017 (1.010-1.035) 01/19/19 10:25 Urine Protein Negative (NEGATIVE) 01/19/19 10:25 Urine Glucose (UA) Negative (NEGATIVE) 01/19/19 10:25 Urine Ketones Negative (NEGATIVE) 01/19/19 10:25 Urine Blood Negative (NEGATIVE) 01/19/19 10:25 Urine Nitrite Negative (NEGATIVE) 01/19/19 10:25 Urine Bilirubin Negative (NEGATIVE) 01/19/19 10:25 Urine Urobilinogen 0.2 mg/dL (0.2-1.0) 01/19/19 10:25 Ur Leukocyte Esterase Negative (NEGATIVE) 01/19/19 10:25 POC Urine HCG, Qual Negative 01/18/19 23:23 RPR Titer Nonreactive (NONREACTIVE) 01/20/19 07:50 lab noted - Treatment Hospital Course: Detox Protocol Followed, Detoxed Safely, Responded well, Discharged Condition Good, Rehab Referral Accepted Patient has Accepted a Rehab Referral to: [facility] - Medication Discharge Medications: Ambulatory Orders Chlorpromazine [Thorazine -] 50 mg PO DAILY 01/18/19 Divalproex [Depakote -] 250 mg PO BID 01/18/19 Gabapentin 600 mg PO BID 01/18/19 traZODone HCL [Trazodone HCl] 50 mg PO HS 01/18/19 Albuterol Sulfate Inhaler - [Ventolin HFA Inhaler -] 2 puff IH Q4H PRN #1 inhaler 01/23/19 Albuterol Sulfate Inhaler - [Ventolin HFA Inhaler -] 2 puff IH Q4H PRN #1 inhaler 01/24/19 - Diagnosis (1) Alcohol dependence with withdrawal Status: Acute Qualifiers: Complication of substance-induced condition: uncomplicated Qualified Code(s ): F10.230 - Alcohol dependence with withdrawal, uncomplicated (2) Nicotine dependence Status: Acute Qualifiers: Nicotine product type: cigarettes Substance use status: in withdrawal Qualified Code(s): F17.213 - Nicotine dependence, cigarettes, with withdrawal (3) Opioid dependence with withdrawal Status: Acute (4) Substance induced mood disorder Status: Suspected (5) Asthma Status: Chronic Qualifiers: Asthma severity: moderate Asthma complication type: with acute exacerbation - AMA Did Patient Leave Against Medical Advice: No
== END 2019-01-25 11:31 | disposition home or self-care (01) | DRG 773 ==
LOC: YASAS 16:01 → Y3N 01-19 02:09
PROVIDERS: ADMIT Surgery; ATTEND Surgery
PROC: HZ2ZZZZ Detoxification Services for Substance Abuse Treatment (ICD-10-PCS; principal; 2019-01-19)
DX: F11.23 Opioid dependence with withdrawal (principal); F10.230 Alcohol dependence with withdrawal, uncomplicated; F14.20 Cocaine dependence, uncomplicated; F17.213 Nicotine dependence, cigarettes, with withdrawal; F19.24 Other psychoactive substance dependence with psychoactive substance-induced mood disorder; F19.282 Other psychoactive substance dependence with psychoactive substance-induced sleep disorder; F20.9 Schizophrenia, unspecified; F60.9 Personality disorder, unspecified; J45.901 Unspecified asthma with (acute) exacerbation; Z91.5 Personal history of self-harm; Z59.0 Homelessness
CPT/HCPCS: 36415; 80053; 81003; 81025; 85027; 86593; 94640; J0475; J0735

== ENCOUNTER 2019-08-22 18:44 | Inpatient (IN) | payer OTHER ==
[2019-08-22 19:47] VITALS: BMI 21.1
--- NOTE | 2019-08-22 20:40 | HP ---
Screened but not Admitted - Documentation of Visit Screened but not Admitted: Yes Left Prior to Completion of Assessment: No Level of Care Recommended at this Time: ER Evaluation/Care Additional Information/Explanation: CLIENT PRESENTS FOR ALCOHOL AND HEROIN DETOX. HE IS A/O X3 NAD. LEFT WRIST/HAND WRAPPED WITH ELVIS BANDAGE CLIENT REPORTS A FX. SEEN AND TREATED IN [facility] FOR ASTHMA AND HAND INJURY 1 DAY AGO. CLIENT DOES NOT HAVE ANY DC PAPERS. CLIENT GAVE VERBAL CONSENT TO CONTACT THE ER. PROVIDERS ATTEMPT WAS UNSUCCESSFUL. D/W CLIENT NEED FOR CLEARANCE. PT GIVEN [facility] CARDS AND WILL RETURN WITH DOCUMENTATION. SHE LEFT UNIT IN STABLE CONDITION. DENIES SI/HI/AVH
--- NOTE | 2019-08-23 03:04 | HP ---
COWS - Scale Resting Pulse: 4= [place] > 121 Sweatin= No chills or Flushing Restless Observation: 0= Sits Still Pupil Size: 0= Normal to Room Light Bone or Joint Aches: 4=Acute Joint/Muscle Pain Runny Nose/ Eye Tearin= Nasal Congestion GI Upset > 30mins: 0= None Tremor Observation: 0= None Yawning Observation: 0= None Anxiety or Irritability: 2=Irritable/Anxious (irritable) Goose Flesh Skin: 0=Smooth Skin COWS Score: 11 CIWA Score Nausea/Vomitin-No Nausea/No Vomiting Muscle Tremors: None Anxiety: 0-No Anxiety, at Ease Agitation: 3 (irritable) Paroxysmal Sweats: No Perspiration Orientation: 3-Disoriented Date>2 days Tacttile Disturbances: 0-None Auditory Disturbances: 0-None Visual Disturbances: 2-Mild Sensitivity (to light) Headache: 0-None Present CIWA-Ar Total Score: 8 - Admission Criteria OASAS Guidelines: Admission for Medically Managed Detox: Requires at least one of the followin. CIWA greater than 12 2. Seizures within the past 24 hours 3. Delirium tremens within the past 24 hours 4. Hallucinations within the past 24 hours 5. Acute intervention needed for co occurring medical disorder 6. Acute intervention needed for co occurring psychiatric disorder 7. Severe withdrawal that cannot be handled at a lower level of care (continued vomiting, continued diarrhea, abnormal vital signs) requiring intravenous medication and/or fluids 8. Admitting History and Physical - Past Medical History ...LMP: 09/10/17 - Smoking History Smoking history: Current every day smoker Have you smoked in the past 12 months: Yes Aproximately how many cigarettes per day: 40 - Alcohol/Substance Use Hx Alcohol Use: Yes Admission [facility] Chief Complaint: seeking heroin/ alcohol detox Allergies/Adverse Reactions: Allergies Allergy/AdvReac Type Severity Reaction Status Date / Time guaifenesin [From Robitussin] Allergy Severe Swelling Verified 08/22/19 19:52 ibuprofen Allergy Verified 08/22/19 19:52 History of Present Illness: CLIENT RETURNS WITH DC PAPERS FROM [facility]. SHE DID NOT GO BACK TO [facility]. DC PAPER NOTES NO WRIST INJURY. ELVIS WRAP HAS SINCE BEEN REMOVED. HERE FOR HEROIN ALCOHOL DETOX. SHE IS SELF REFERRED. KNOWN TO PROGRAM. LAST HERE 2018. CLIENT REPORTS SHE WAS CLEAN FOR 2 ONTHS BEFORE RELAPSING. SHE REPORTS DAILY USE OF HEROIN AND ALCOHOL, INTERMITTENT USE OF BUPRENORPHINE WHEN SHE IS UNABLE TO GET HERION. UTOX + OPI, CAROLA, THC AND BUP. SHE REPORTS LAST USE A FEW HOURS AGO. 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 DENIES BLACKOUTS, SEIZURES, AVH, SI/HI. HOMELESS, UNEMPLOYED, DRUG TXMENT, COURT. NOTED CLIENT APPLYING PRESSURE TO R WRIST AND USE OF HAND W/O DIFFICULTY DURING INTERVIEW. Exam Limitations: No Limitations - Ebola screening Have you traveled outside of the country in the last 21 days: No Have you had contact with anyone from an Ebola affected area: No Have you been sick,other than usual withdrawal symptoms: No Do you have a fever: No - Review of Systems Constitutional: Chills, Malaise, Night Sweats, Changes in sleep EENT: reports: Dental Problems (REPORTED DENTAL ABCESS S/P ABT TXMENT) Respiratory: reports: Shortness of Breath (INTERMITTENT 2/2 ASTHMA) Cardiac: reports: No Symptoms Reported GI: reports: Poor Fluid Intake, Vomiting (X1) : reports: No Symptoms Reported Musculoskeletal: reports: Back Pain (CHRONIC) Integumentary: reports: No Symptoms Reported Neuro: reports: Headache Endocrine: reports: No Symptoms Reported Hematology: reports: No Symptoms Reported Psychiatric: reports: Agitated (IRRITABLE), Depressed (DENIES SI/HI) Other Systems: Reviewed and Negative Patient History - Patient Medical History Hx Anemia: No Hx Asthma: Yes Hx Chronic Obstructive Pulmonary Disease (COPD): No Hx Cancer: No Hx Cardiac Disorders: No Hx Congestive Heart Failure: No Hx Hypertension: No Hx Hypercholesterolemia: No Hx Pacemaker: No HX Cerebrovascular Accident: No Hx Seizures: No Hx Dementia: No Hx Diabetes: No Hx Gastrointestinal Disorders: No Hx Liver Disease: No Hx Genitourinary Disorders: No Hx Sexually Transmitted Disorders: No Hx Renal Disease (ESRD): No Hx Thyroid Disease: No Hx Human Immunodeficiency Virus (HIV): No Hx Hepatitis C: No Hx Depression: Yes Hx Suicide Attempt: Yes (LAST 1 YEAR AGO BY DRUG OVERDOSE) Hx Bipolar Disorder: Yes Hx Schizophrenia: Yes Other Medical History: DENIES - Patient Surgical History Past Surgical History: Yes Hx Neurologic Surgery: No Hx Cataract Extraction: No Hx Cardiac Surgery: No Hx Lung Surgery: No Hx Breast Surgery: No Hx Breast Biopsy: No Hx Abdominal Surgery: No Hx Appendectomy: No Hx Cholecystectomy: No Hx Genitourinary Surgery: No Hx Section: Yes ( x 2 ) Hx Orthopedic Surgery: No Hx Hysterectomy: No Anesthesia Reaction: No - PPD History Previous Implant?: Yes Documented Results: Negative w/proof Implanted On Prior [facility] Admission?: Yes Date: 02/04/18 Results: 0MM PPD to be Administered?: Yes - Reproductive History Patient is a Female of Child Bearing Age (11 -55 yrs old): Yes Last Menstrual Period: 09/10/17 LMP comment: IRRIG Patient : No ([facility]) - Smoking Cessation Smoking history: Current every day smoker Have you smoked in the past 12 months: Yes Aproximately how many cigarettes per day: 80 Cigars Per Day: 0 Hx Chewing Tobacco Use: No Initiated information on smoking cessation: Yes 'Breaking Loose' booklet given: 08/23/19 - Substance & Tx. History Hx Alcohol Use: Yes Hx Substance Use: Yes Substance Use Type: Alcohol, Cocaine, Heroin, Marijuana Hx Substance Use Treatment: Yes ([facility]) - Substances abused Alcohol Substance route: Oral Frequency: Daily Amount used: Beer - 8 40 oz Age of first use: 15 Date of last use: 08/22/19 Crack Substance route: Smoking Frequency: Daily Amount used: 8 Grams Age of first use: 33 Date of last use: 08/22/19 Heroin Substance route: Injection Frequency: Daily Amount used: 5 bundles Age of first use: 33 Date of last use: 08/22/19 Admission Physical Exam S - Vital Signs Vital Signs: Vital Signs - 24 hr 08/22/19 08/22/19 08/23/19 19:29 19:57 02:32 Temperature 98.5 F 98.5 F 97.9 F Pulse Rate 117 H 117 H 121 H Respiratory 18 18 16 Rate Blood Pressure 109/78 109/78 117/85 - Physical General Appearance: Yes: Mild Distress, Irritable, Anxious HEENTM: Yes: EOMI, Normocephalic, Normal Voice, JUSTA, Pharynx Normal Respiratory: Yes: Chest Non-Tender, Lungs Clear, Normal Breath Sounds, No Respiratory Distress, No Accessory Muscle Use Neck: Yes: No masses,lesions,Nodules, Supple, Trachea in good position Breast: Yes: Breasts Symetrical Cardiology: Yes: Regular Rhythm, S1, S2, Tachycardia Abdominal: Yes: Normal Bowel Sounds, Non Tender, Flat, Soft Genitourinary: Yes: Within Normal Limits Back: Yes: Normal Inspection Musculoskeletal: Yes: full range of Motion, Gait Steady, Back pain (REPORTED) Extremities: Yes: Normal Capillary Refill, Normal Inspection, Normal Range of Motion, Non-Tender Neurological: Yes: Alert, Motor Strength 5/5, Depressed Affect (DENIES SI/HI) Integumentary: Yes: Dry, Warm Lymphatic: Yes: Within Normal Limits - Diagnostic (1) Homeless Current Visit: Yes Status: Suspected Comment: REPORTED (2) IVDU (intravenous drug user) Current Visit: Yes Status: Chronic (3) Skin turgor poor Current Visit: Yes Status: Acute (4) At risk for dehydration due to poor fluid intake Current Visit: Yes Status: Acute (5) Alcohol dependence with withdrawal Current Visit: Yes Status: Acute Qualifiers: Complication of substance-induced condition: uncomplicated Qualified Code(s ): F10.230 - Alcohol dependence with withdrawal, uncomplicated (6) Cocaine dependence Current Visit: Yes Status: Acute Qualifiers: Substance use status: uncomplicated Qualified Code(s): F14.20 - Cocaine dependence, uncomplicated (7) Nicotine dependence Current Visit: Yes Status: Chronic Qualifiers: Nicotine product type: cigarettes Substance use status: in withdrawal Qualified Code(s): F17.213 - Nicotine dependence, cigarettes, with withdrawal (8) Opioid dependence with withdrawal Current Visit: Yes Status: Acute (9) Psychiatric disorder Current Visit: Yes Status: Chronic (10) Substance induced mood disorder Current Visit: Yes Status: Chronic (11) Asthma Current Visit: Yes Status: Acute Qualifiers: Asthma severity: moderate Asthma complication type: with acute exacerbation Cleared for Admission [facility] - Detox or Rehab [facility] Level of Care: Medically Managed Detox Regimen/Protocol: Methadone/Librium Claeared for Rehab Admission: No Breathalyzer - Breathalyzer Breathalyzer: 0 Urine Drug Screen - Test Device Lot number: [id number] Expiration date: 06/07/21 - Control Is test valid?: Yes - Results Drug screen NEGATIVE: No Urine drug screen results: THC-Marijuana, CAROLA-Cocaine, MOP-Opiates, BUP-Suboxone Inpatient Rehab Admission - Rehab Decision to Admit Inpatient rehab admission?: No
[2019-08-23] MEDS ORDERED: DICYCLOMINE HCL 10 MG CAPSULE PO PRN (03:10)
[2019-08-23] MEDS ORDERED: ACETAMINOPHEN 325 MG TABLET (FP) PO PRN ×2 (03:10)
[2019-08-23] MEDS ORDERED: MENTHOL/PHENOL 1 EACH UD MM PRN (03:10)
[2019-08-23] MEDS ORDERED: ONDANSETRON *ODT* 4 MG TABLET SL PRN (03:10)
[2019-08-23] MEDS ORDERED: P-EPHED 60MG/TRIPROLIDI 2.5MG TABLET PO PRN (03:10)
[2019-08-23] MEDS ORDERED: MAGNESIUM HYDROX 2400MG/30ML ORAL SUSPENSION 30 ML CUP PO PRN (03:10)
[2019-08-23] MEDS ORDERED: cloNIDine HCL 0.1 MG TABLET PO PRN (03:10)
[2019-08-23] MEDS ORDERED: MAG HYDROX/AL HYDROX/SIMETH 30 ML UNIT-DOSE CUP PO PRN (03:10)
[2019-08-23] MEDS ORDERED: NALOXONE HCL 0.4 MG/ML VIAL IM PRN (03:10)
[2019-08-23] MEDS ORDERED: METHADONE HCL 10 MG TABLET (FOR DETOX USE ONLY) PO ONE ×2 (03:10→10:00)
[2019-08-23] MEDS ORDERED: MAGNESIUM CITRATE 300 ML BOTTLE PO PRN (03:10)
[2019-08-23] MEDS: chlordiazePOXIDE HCL 25 MG CAPSULE PO SCH ×3 (04:34→22:29)
[2019-08-23] MEDS: ALBUTEROL SO4 HFA INHALER IH PRN ×3 (07:00→22:34)
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
--- NOTE | 2019-08-23 09:44 | EKG ---
Test Reason : Blood Pressure : / mmHG Vent. Rate : 098 BPM Atrial Rate : 098 BPM P-R Int : 136 ms QRS Dur : 090 ms QT Int : 368 ms P-R-T Axes : 045 026 052 degrees QTc Int : 469 ms NORMAL SINUS RHYTHM NORMAL ECG WHEN COMPARED WITH ECG OF 02-FEB-2018 21:56, NO SIGNIFICANT CHANGE WAS FOUND Confirmed by Ang Shay ([id number]) on 08/23/2019 9:43:57 AM Referred By: MEIR Confirmed By:Ang Shay
[2019-08-23 10:09] LABS: HEMATOCRIT 39.6 % (32.4-45.2); HEMOGLOBIN 13.2 GM/dL (10.7-15.3); MCH 28.9 pg (25.7-33.7); MCHC 33.3 g/dl (32.0-36.0); MEAN CELL VOLUME 86.9 fl (80-96); MEAN PLT VOLUME 7.8 fl (7.5-11.1); PLATELET COUNT 513 K/MM3 (134-434); RBC 4.56 M/mm3 (3.60-5.2); RDW 14.7 % (11.6-15.6); WHITE BLOOD COUNT 6.1 K/mm3 (4.0-10.0)
[2019-08-23 10:13] LABS: ALBUMIN 3.2 g/dl (3.4-5.0); BILIRUBIN,TOTAL 0.5 mg/dL (0.2-1); BLOOD UREA NITROGEN 10.8 mg/dL (7-18); CALCIUM 9.5 mg/dL (8.5-10.1); CREATININE 0.9 mg/dL (0.55-1.3); POTASSIUM 4.4 mmol/L (3.5-5.1); TOT PROT 8.2 g/dl (6.4-8.2)
[2019-08-23] MEDS: NICOTINE 21 MG/24 HOURS TOPICAL PATCH TD SCH (10:35)
[2019-08-23] MEDS: PRENATAL VITAMINS W/ FOLIC ACID TABLET (FP) PO SCH (10:36)
[2019-08-23] MEDS: METHOCARBAMOL 500 MG TABLET PO PRN ×2 (10:38→19:03)
[2019-08-23] MEDS: chlordiazePOXIDE HCL 10 MG CAPSULE PO PRN (10:38)
--- NOTE | 2019-08-23 11:24 | PN ---
[facility] CIWA - CIWA Score Nausea/Vomitin-No Nausea/No Vomiting Muscle Tremors: 2 Anxiety: 3 Agitation: 2 Paroxysmal Sweats: 2 Orientation: 0-Oriented Tacttile Disturbances: 0-None Auditory Disturbances: 0-None Visual Disturbances: 0-None Headache: 0-None Present CIWA-Ar Total Score: 9 BHS COWS - Scale Resting Pulse: 2= RI 101-120 Sweatin=Flushed/Facial Moisture Restless Observation: 1= Difficult to Sit Still Pupil Size: 0= Normal to Room Light Bone or Joint Aches: 2= Severe Diffuse Aches Runny Nose/ Eye Tearin= None GI Upset > 30mins: 0= None Tremor Observation of Outstretched Hands: 1= Tremor [place], Not Seen Yawning Observation: 1= 1-2x During Session Anxiety or Irritability: 2=Irritable/Anxious Goose Flesh Skin: 0=Smooth Skin COWS Score: 11 S Progress Note (SOAP) Subjective: sweats shakes chills body aches irritable restless Objective: 08/23/19 11:23 Vital Signs Temperature 98.4 F 08/23/19 08:16 Pulse Rate 114 H 08/23/19 08:16 Respiratory Rate 18 08/23/19 08:16 Blood Pressure 137/90 08/23/19 08:16 O2 Sat by Pulse Oximetry (%) Laboratory Tests 08/22/19 08/23/19 08/23/19 20:01 08:00 08:00 WBC 6.1 RBC 4.56 Hgb 13.2 Hct 39.6 MCV 86.9 MCH 28.9 MCHC 33.3 RDW 14.7 Plt Count 513 H MPV 7.8 Sodium 136 Potassium 4.4 Chloride 104 Carbon Dioxide 24 Anion Gap 8 BUN 10.8 Creatinine 0.9 Est GFR (CKD-EPI)AfAm 94.01 Est GFR (CKD-EPI)NonAf 81.11 Random Glucose 197 H Calcium 9.5 Total Bilirubin 0.5 AST 20 ALT 25 Alkaline Phosphatase 159 H Total Protein 8.2 Albumin 3.2 L POC Urine HCG, Qual Negative RPR Titer 08/23/19 08:00 WBC RBC Hgb Hct MCV MCH MCHC RDW Plt Count MPV Sodium Potassium Chloride Carbon Dioxide Anion Gap BUN Creatinine Est GFR (CKD-EPI)AfAm Est GFR (CKD-EPI)NonAf Random Glucose Calcium Total Bilirubin AST ALT Alkaline Phosphatase Total Protein Albumin POC Urine HCG, Qual RPR Titer Nonreactive labs noted aaox3 ambulating no acute distress glucose 197; pt denies being a diabetic will repeat lab Assessment: 08/23/19 11:26 withdrawal sx Plan: continue detox increase fluids fasting glucose
[2019-08-23] MEDS ORDERED: LIDOCAINE 5% TOPICAL PATCH TP ONE (15:23)
--- NOTE | 2019-08-23 15:30 | PN ---
S Progress Note Note: Vital Signs (72 hours) 08/22/19 08/22/19 08/23/19 19:29 19:57 02:32 Temperature 98.5 F 98.5 F 97.9 F Pulse Rate 117 H 117 H 121 H Respiratory 18 18 16 Rate Blood Pressure 109/78 109/78 117/85 08/23/19 08/23/19 08/23/19 04:24 06:46 08:16 Temperature 98.4 F 98.4 F Pulse Rate 114 H 114 H Respiratory 18 18 18 Rate Blood Pressure 137/90 137/90 08/23/19 08/23/19 11:32 13:15 Temperature 98.4 F 97.9 F Pulse Rate 117 H 116 H Respiratory 19 18 Rate Blood Pressure 116/67 132/87 pt was given clonidine 0.1 x one current BP 102/68, HR 108, temp 97. continue to monitor
[2019-08-23] MEDS: NICOTINE POLACRILEX 4 MG GUM BUC PRN ×2 (16:31→22:34)
[2019-08-23] MEDS: hydrOXYzine PAMOATE 25 MG CAPSULE (FP) PO PRN (19:03)
[2019-08-23] MEDS: QUEtiapine FUMARATE 100 MG TABLET (FP) PO SCH (22:29)
[2019-08-23] MEDS: LIDOCAINE PATCH REMOVAL MC SCH ×2 (22:29)
[2019-08-23] MEDS: THIAMINE HCL 100 MG TABLET (FP) PO SCH (22:29)
[2019-08-23] MEDS: MELATONIN 5 MG TABLETS PO PRN (22:30)
[2019-08-24] MEDS: chlordiazePOXIDE 5 MG CAPSULE PO SCH ×3 (05:25→22:04)
[2019-08-24] MEDS: hydrOXYzine PAMOATE 25 MG CAPSULE (FP) PO PRN ×2 (05:28→11:50)
[2019-08-24] MEDS: METHOCARBAMOL 500 MG TABLET PO PRN ×3 (05:44→18:25)
[2019-08-24] MEDS ORDERED: METHADONE HCL 10 MG TABLET (FOR DETOX USE ONLY) ONE (09:39)
[2019-08-24] MEDS ORDERED: METHADONE HCL 5 MG TABLET (FOR DETOX USE ONLY) ONE (09:39)
[2019-08-24] MEDS ORDERED: METHADONE (DETOX) 20 MG, METHADONE (DETOX) 5 MG PO ONE (10:00)
[2019-08-24] MEDS: ALBUTEROL SO4 HFA INHALER IH PRN ×2 (10:30→20:12)
[2019-08-24] MEDS: chlordiazePOXIDE HCL 10 MG CAPSULE PO PRN (10:38)
[2019-08-24] MEDS: NICOTINE 21 MG/24 HOURS TOPICAL PATCH TD SCH (10:39)
[2019-08-24] MEDS: NICOTINE POLACRILEX 4 MG GUM BUC PRN ×2 (10:41→22:07)
[2019-08-24] MEDS: LIDOCAINE 5% TOPICAL PATCH TP SCH (10:42)
[2019-08-24] MEDS: PRENATAL VITAMINS W/ FOLIC ACID TABLET (FP) PO SCH (10:43)
[2019-08-24] MEDS ORDERED: ALBUTEROL SO4 2.5/IPRATROPIUM 0.5 INH SOL 3 ML VIAL.NEB. NEB ONE (11:46)
[2019-08-24] MEDS ORDERED: cloNIDine HCL 0.1 MG TABLET PO ONE (11:47)
[2019-08-24] MEDS: ALBUTEROL SO4 2.5/IPRATROPIUM 0.5 INH SOL 3 ML VIAL.NEB. NEB PRN (11:51)
--- NOTE | 2019-08-24 11:58 | PN ---
S CIWA - CIWA Score Nausea/Vomitin-No Nausea/No Vomiting Muscle Tremors: 3 Anxiety: 2 Agitation: 3 Paroxysmal Sweats: 2 Orientation: 0-Oriented Tacttile Disturbances: 0-None Auditory Disturbances: 0-None Visual Disturbances: 0-None Headache: 0-None Present CIWA-Ar Total Score: 10 BHS COWS - Scale Resting Pulse: 4= [place] > 121 Sweatin= Chills/Flushing Restless Observation: 1= Difficult to Sit Still Pupil Size: 0= Normal to Room Light Bone or Joint Aches: 2= Severe Diffuse Aches Runny Nose/ Eye Tearin= Runny Nose/Eyes GI Upset > 30mins: 0= None Tremor Observation of Outstretched Hands: 0= None Yawning Observation: 1= 1-2x During Session Anxiety or Irritability: 2=Irritable/Anxious Goose Flesh Skin: 0=Smooth Skin COWS Score: 13 BHS Progress Note (SOAP) Subjective: sweats body aches sore throat irritable I need to see psych again interrupted sleep Objective: 08/24/19 11:51 Vital Signs Temperature 98.2 F 08/24/19 08:44 Pulse Rate 125 H 08/24/19 08:44 Respiratory Rate 18 08/24/19 08:44 Blood Pressure 115/72 08/24/19 08:44 O2 Sat by Pulse Oximetry (%) Laboratory Tests 08/22/19 08/23/19 08/23/19 20:01 08:00 08:00 WBC 6.1 RBC 4.56 Hgb 13.2 Hct 39.6 MCV 86.9 MCH 28.9 MCHC 33.3 RDW 14.7 Plt Count 513 H MPV 7.8 Sodium 136 Potassium 4.4 Chloride 104 Carbon Dioxide 24 Anion Gap 8 BUN 10.8 Creatinine 0.9 Est GFR (CKD-EPI)AfAm 94.01 Est GFR (CKD-EPI)NonAf 81.11 Random Glucose 197 H Fasting Glucose Calcium 9.5 Total Bilirubin 0.5 AST 20 ALT 25 Alkaline Phosphatase 159 H Total Protein 8.2 Albumin 3.2 L POC Urine HCG, Qual Negative RPR Titer 08/23/19 08/24/19 08:00 07:45 WBC RBC Hgb Hct MCV MCH MCHC RDW Plt Count MPV Sodium Potassium Chloride Carbon Dioxide Anion Gap BUN Creatinine Est GFR (CKD-EPI)AfAm Est GFR (CKD-EPI)NonAf Random Glucose Fasting Glucose 110 H Calcium Total Bilirubin AST ALT Alkaline Phosphatase Total Protein Albumin POC Urine HCG, Qual RPR Titer Nonreactive aaox3 ambulating no acute distress fasting glucose 110; denies being a diabetic; pt teaching on refraining from sugary meals/juices. increase water intake.pt understands Assessment: 08/24/19 11:58 glands assessed; swollen noted; some redness noted to throat. pt denies having difficulty swallowing. pt cannot remember how long her glands have been swollen. pt will be placed on ABX pt agrees. Plan: continue detox augmentin 500mg tid x 7 days ordered clonidine 0.1mg bid with parameters ordered psych ordered for re-evaluation of her medication
[2019-08-24] MEDS: AMOX TR/POT CLAV 500MG/125MG TABLETS (FP) PO SCH ×2 (14:33→17:09)
--- NOTE | 2019-08-24 18:57 | PN ---
[facility] Progress Note Note: C/o severe tooth ache. (R) rear molar cracked. No gum abscess noted. Vital Signs 08/24/19 08/24/19 16:33 20:38 Temperature 98.4 F 98.6 F Pulse Rate 122 H 121 H Respiratory 18 18 Rate Blood Pressure 135/97 123/92 Plan: Orajel q6h Increase acetaminophen to 975 mg q4h prn.
[2019-08-24] MEDS: BENZOCAINE 20 % GEL TUBE MM PRN (19:46)
[2019-08-24] MEDS: ACETAMINOPHEN 325 MG TABLET (FP) PO PRN (20:10)
[2019-08-24] MEDS: QUEtiapine FUMARATE 100 MG TABLET (FP) PO SCH (22:04)
[2019-08-24] MEDS: cloNIDine HCL 0.1 MG TABLET PO SCH (22:04)
[2019-08-24] MEDS: THIAMINE HCL 100 MG TABLET (FP) PO SCH (22:05)
[2019-08-24] MEDS: LIDOCAINE PATCH REMOVAL MC SCH ×2 (22:06)
[2019-08-25] MEDS ORDERED: chlordiazePOXIDE HCL 10 MG CAPSULE PO PRN
[2019-08-25] MEDS: ALBUTEROL SO4 HFA INHALER IH PRN ×2 (02:04→06:27)
[2019-08-25] MEDS: chlordiazePOXIDE HCL 10 MG CAPSULE PO SCH ×3 (06:21→22:20)
[2019-08-25] MEDS: METHOCARBAMOL 500 MG TABLET PO PRN ×2 (06:22→17:47)
[2019-08-25] MEDS: BENZOCAINE 20 % GEL TUBE MM PRN ×2 (06:24→22:22)
[2019-08-25] MEDS: ACETAMINOPHEN 325 MG TABLET (FP) PO PRN ×3 (06:25→22:24)
[2019-08-25] MEDS: AMOX TR/POT CLAV 500MG/125MG TABLETS (FP) PO SCH ×3 (07:16→17:47)
[2019-08-25] MEDS ORDERED: METHADONE HCL 10 MG TABLET (FOR DETOX USE ONLY) PO ONE (10:00)
[2019-08-25] MEDS: cloNIDine HCL 0.1 MG TABLET PO SCH ×2 (10:02→22:20)
[2019-08-25] MEDS: NICOTINE 21 MG/24 HOURS TOPICAL PATCH TD SCH (10:04)
[2019-08-25] MEDS: NICOTINE POLACRILEX 4 MG GUM BUC PRN ×2 (10:05→21:21)
[2019-08-25] MEDS: hydrOXYzine PAMOATE 25 MG CAPSULE (FP) PO PRN ×2 (10:08→17:47)
[2019-08-25] MEDS: PRENATAL VITAMINS W/ FOLIC ACID TABLET (FP) PO SCH (10:09)
[2019-08-25] MEDS: LIDOCAINE 5% TOPICAL PATCH TP SCH (10:10)
--- NOTE | 2019-08-25 11:20 | PN ---
[facility] CIWA - CIWA Score Nausea/Vomitin-No Nausea/No Vomiting Muscle Tremors: 2 Anxiety: 2 Agitation: 2 Paroxysmal Sweats: 2 Orientation: 0-Oriented Tacttile Disturbances: 0-None Auditory Disturbances: 0-None Visual Disturbances: 0-None Headache: 0-None Present CIWA-Ar Total Score: 8 S COWS - Scale Resting Pulse: 4= OK > 121 Sweatin= Chills/Flushing Restless Observation: 1= Difficult to Sit Still Pupil Size: 0= Normal to Room Light Bone or Joint Aches: 1= Mild Discomfort Runny Nose/ Eye Tearin= None GI Upset > 30mins: 0= None Tremor Observation of Outstretched Hands: 1= Tremor [place], Not Seen Yawning Observation: 1= 1-2x During Session Anxiety or Irritability: 2=Irritable/Anxious Goose Flesh Skin: 0=Smooth Skin COWS Score: 11 S Progress Note (SOAP) Subjective: sweats shakes tooth pain feeling better body aches Objective: 08/25/19 11:19 Vital Signs Temperature 98.4 F 08/25/19 08:43 Pulse Rate 126 H 08/25/19 08:43 Respiratory Rate 18 08/25/19 08:43 Blood Pressure 122/75 08/25/19 08:43 O2 Sat by Pulse Oximetry (%) aaox3 ambulating no acute distress Assessment: 08/25/19 11:20 withdrawals Plan: continue detox
[2019-08-25] MEDS: ALBUTEROL SO4 2.5/IPRATROPIUM 0.5 INH SOL 3 ML VIAL.NEB. NEB PRN (19:04)
[2019-08-25] MEDS: THIAMINE HCL 100 MG TABLET (FP) PO SCH (22:20)
[2019-08-25] MEDS: QUEtiapine FUMARATE 100 MG TABLET (FP) PO SCH (22:20)
[2019-08-25] MEDS: LIDOCAINE PATCH REMOVAL MC SCH ×2 (22:20)
[2019-08-25] MEDS: MELATONIN 5 MG TABLETS PO PRN (22:21)
[2019-08-26] MEDS ORDERED: chlordiazePOXIDE HCL 10 MG CAPSULE PO ONE (05:00)
[2019-08-26] MEDS: METHOCARBAMOL 500 MG TABLET PO PRN ×3 (06:28→22:18)
[2019-08-26] MEDS: ACETAMINOPHEN 325 MG TABLET (FP) PO PRN ×2 (06:28→13:53)
[2019-08-26] MEDS: ALBUTEROL SO4 HFA INHALER IH PRN ×2 (06:29→17:35)
[2019-08-26] MEDS: BENZOCAINE 20 % GEL TUBE MM PRN (06:35)
[2019-08-26] MEDS: NICOTINE POLACRILEX 4 MG GUM BUC PRN ×4 (06:35→17:35)
[2019-08-26] MEDS: AMOX TR/POT CLAV 500MG/125MG TABLETS (FP) PO SCH ×3 (07:04→17:28)
[2019-08-26] MEDS ORDERED: METHADONE HCL 5 MG TABLET (FOR DETOX USE ONLY) ONE (09:30)
[2019-08-26] MEDS ORDERED: METHADONE HCL 10 MG TABLET (FOR DETOX USE ONLY) ONE (09:31)
[2019-08-26] MEDS ORDERED: METHADONE (DETOX) 10 MG, METHADONE (DETOX) 5 MG PO ONE (10:00)
[2019-08-26] MEDS: PRENATAL VITAMINS W/ FOLIC ACID TABLET (FP) PO SCH (10:47)
[2019-08-26] MEDS: NICOTINE 21 MG/24 HOURS TOPICAL PATCH TD SCH (10:49)
[2019-08-26] MEDS: hydrOXYzine PAMOATE 25 MG CAPSULE (FP) PO PRN (10:49)
[2019-08-26] MEDS: LIDOCAINE 5% TOPICAL PATCH TP SCH (11:41)
--- NOTE | 2019-08-26 16:14 | PN ---
[facility] CIWA - CIWA Score Nausea/Vomitin-Mild Nausea/No Vomiting Muscle Tremors: 2 Anxiety: 2 Agitation: 2 Paroxysmal Sweats: No Perspiration Orientation: 0-Oriented Tacttile Disturbances: 1-Very Mild Itch/Numbness Auditory Disturbances: 0-None Visual Disturbances: 0-None Headache: 2-Mild CIWA-Ar Total Score: 10 BHS COWS - Scale Resting Pulse: 2= [place] 101-120 Sweatin= No chills or [place] Restless Observation: 1= Difficult to Sit Still Pupil Size: 1= Pupils >than Normal Bone or Joint Aches: 1= Mild Discomfort Runny Nose/ Eye Tearin= Runny Nose/Eyes GI Upset > 30mins: 1= Stomach Cramp Tremor Observation of Outstretched Hands: 2= Slight Tremor Visible Yawning Observation: 1= 1-2x During Session Anxiety or Irritability: 2=Irritable/Anxious Goose Flesh Skin: 0=Smooth Skin COWS Score: 13 S Progress Note (SOAP) Subjective: alert,irritable,anxious,interrupted sleep,tremor,pain in the body and back Objective: 08/26/19 16:13 Vital Signs Temperature 99.7 F H 08/26/19 13:45 Pulse Rate 115 H 08/26/19 13:45 Respiratory Rate 18 08/26/19 13:45 Blood Pressure 129/75 08/26/19 13:45 O2 Sat by Pulse Oximetry (%) Assessment: 08/26/19 16:13 withdrawal symptom Plan: continue detox methadone and librium regimen,psychiatric evaluation
[2019-08-26] MEDS: hydrOXYzine PAMOATE 50 MG CAPSULE (FP) PO PRN (17:28)
[2019-08-26] MEDS: THIAMINE HCL 100 MG TABLET (FP) PO SCH (22:18)
[2019-08-26] MEDS: QUEtiapine FUMARATE 100 MG TABLET (FP) PO SCH (22:18)
[2019-08-26] MEDS: LIDOCAINE PATCH REMOVAL MC SCH ×2 (22:19)
[2019-08-26] MEDS: MELATONIN 5 MG TABLETS PO PRN (22:20)
[2019-08-27] MEDS: ACETAMINOPHEN 325 MG TABLET (FP) PO PRN ×2 (00:44→06:14)
[2019-08-27] MEDS: hydrOXYzine PAMOATE 50 MG CAPSULE (FP) PO PRN ×2 (00:45→10:21)
[2019-08-27] MEDS: METHOCARBAMOL 500 MG TABLET PO PRN (06:13)
[2019-08-27] MEDS: ALBUTEROL SO4 HFA INHALER IH PRN ×2 (06:16→10:23)
[2019-08-27] MEDS ORDERED: METHADONE HCL 10 MG TABLET (FOR DETOX USE ONLY) PO ONE (10:00)
[2019-08-27] MEDS: AMOX TR/POT CLAV 500MG/125MG TABLETS (FP) PO SCH (10:17)
[2019-08-27] MEDS: PRENATAL VITAMINS W/ FOLIC ACID TABLET (FP) PO SCH (10:18)
[2019-08-27] MEDS: NICOTINE 21 MG/24 HOURS TOPICAL PATCH TD SCH (10:18)
[2019-08-27 10:19] VITALS: BP 130/79; PULSE 120; TEMP 98.2
[2019-08-27] MEDS: LIDOCAINE 5% TOPICAL PATCH TP SCH (10:24)
[2019-08-27] MEDS ORDERED: hydrOXYzine PAMOATE 50 MG CAPSULE (FP) PO PRN (11:23)
--- NOTE | 2019-08-27 11:23 | PN ---
S Progress Note Note: Requested to see patient for reevaluation for medication. Patient complains of feeling anxious and claims that she currently on Vistaril and it is not working. Vistaril is not part of her orders. Will order Vistaril 50 mg po Q 4hrs prn for anxiety
--- NOTE | 2019-08-27 11:27 | PN ---
[facility] CIWA - CIWA Score Nausea/Vomitin-No Nausea/No Vomiting Muscle Tremors: 1-None Visible, but [place] Anxiety: 1-Mildly Anxious Agitation: 1-Slight > Activity Paroxysmal Sweats: No Perspiration Orientation: 0-Oriented Tacttile Disturbances: 0-None Auditory Disturbances: 0-None Visual Disturbances: 0-None Headache: 0-None Present CIWA-Ar Total Score: 3 BHS Progress Note (SOAP) Subjective: alert,no complaint Objective: 08/27/19 11:25 Vital Signs Temperature 98.2 F 08/27/19 08:44 Pulse Rate 120 H 08/27/19 08:44 Respiratory Rate 20 08/27/19 08:44 Blood Pressure 130/79 08/27/19 08:44 O2 Sat by Pulse Oximetry (%) Assessment: 08/27/19 11:26 no complaint Plan: stable for discharge today,follow up with [facility]
--- NOTE | 2019-08-27 11:30 | PN ---
[facility] CIWA - CIWA Score Nausea/Vomitin-No Nausea/No Vomiting Muscle Tremors: 1-None Visible, but [place] Anxiety: 1-Mildly Anxious Agitation: 1-Slight > Activity Paroxysmal Sweats: No Perspiration Orientation: 0-Oriented Tacttile Disturbances: 0-None Auditory Disturbances: 0-None Visual Disturbances: 0-None Headache: 0-None Present CIWA-Ar Total Score: 3 S COWS - Scale Resting Pulse: 2= [place] 101-120 Sweatin= No chills or [place] Restless Observation: 0= Sits Still Pupil Size: 0= Normal to Room Light Bone or Joint Aches: 0= None Runny Nose/ Eye Tearin= None GI Upset > 30mins: 0= None Tremor Observation of Outstretched Hands: 0= None Yawning Observation: 0= None Anxiety or Irritability: 1=Feels Anxious/Irritable Goose Flesh Skin: 0=Smooth Skin COWS Score: 3 S Progress Note (SOAP) Subjective: alert,no complaint,anxious Objective: 08/27/19 11:28 Vital Signs Temperature 98.2 F 08/27/19 08:44 Pulse Rate 120 H 08/27/19 08:44 Respiratory Rate 20 08/27/19 08:44 Blood Pressure 130/79 08/27/19 08:44 O2 Sat by Pulse Oximetry (%) Assessment: 08/27/19 11:29 patient is stable for discharge Plan: discharge today,further level of care rehab [facility]
--- NOTE | 2019-08-27 11:34 | DS ---
[facility] Detox Discharge Summary Admission Date: 08/23/19 Discharge Date: 08/27/19 - History Present History: Alcohol Dependence, Cannabis Dependence, Cocaine Dependence, Opioid Dependence Additional Comments: alert,oriented x 3 ambulation on the unit without difficulty lung clear no abdominal pain stable for discharge time spending 35 mins Pertinent Past History: withdrawal signs and symptom - Physical Exam Results Vital Signs: Vital Signs Temperature 98.2 F 08/27/19 08:44 Pulse Rate 120 H 08/27/19 08:44 Respiratory Rate 20 08/27/19 08:44 Blood Pressure 130/79 08/27/19 08:44 O2 Sat by Pulse Oximetry (%) Pertinent Admission Physical Exam Findings: withdrawal sign and symptom Laboratory Last Values WBC 6.1 K/mm3 (4.0-10.0) 08/23/19 08:00 RBC 4.56 M/mm3 (3.60-5.2) 08/23/19 08:00 Hgb 13.2 GM/dL (10.7-15.3) 08/23/19 08:00 Hct 39.6 % (32.4-45.2) 08/23/19 08:00 MCV 86.9 fl (80-96) 08/23/19 08:00 MCH 28.9 pg (25.7-33.7) 08/23/19 08:00 MCHC 33.3 g/dl (32.0-36.0) 08/23/19 08:00 RDW 14.7 % (11.6-15.6) 08/23/19 08:00 Plt Count 513 K/MM3 (134-434) H 08/23/19 08:00 MPV 7.8 fl (7.5-11.1) 08/23/19 08:00 Sodium 136 mmol/L (136-145) 08/23/19 08:00 Potassium 4.4 mmol/L (3.5-5.1) 08/23/19 08:00 Chloride 104 mmol/L (98-107) 08/23/19 08:00 Carbon Dioxide 24 mmol/L (21-32) 08/23/19 08:00 Anion Gap 8 MMOL/L (8-16) 08/23/19 08:00 BUN 10.8 mg/dL (7-18) 08/23/19 08:00 Creatinine 0.9 mg/dL (0.55-1.3) 08/23/19 08:00 Est GFR (CKD-EPI)AfAm 94.01 08/23/19 08:00 Est GFR (CKD-EPI)NonAf 81.11 08/23/19 08:00 Random Glucose 197 mg/dL (74-106) H 08/23/19 08:00 Fasting Glucose 110 mg/dL (74-106) H 08/24/19 07:45 Calcium 9.5 mg/dL (8.5-10.1) 08/23/19 08:00 Total Bilirubin 0.5 mg/dL (0.2-1) 08/23/19 08:00 AST 20 U/L (15-37) 08/23/19 08:00 ALT 25 U/L (13-61) 08/23/19 08:00 Alkaline Phosphatase 159 U/L (45-117) H 08/23/19 08:00 Total Protein 8.2 g/dl (6.4-8.2) 08/23/19 08:00 Albumin 3.2 g/dl (3.4-5.0) L 08/23/19 08:00 POC Urine HCG, Qual Negative 08/22/19 20:01 RPR Titer Nonreactive (NONREACTIVE) 08/23/19 08:00 - Treatment Hospital Course: Detox Protocol Followed, Detoxed Safely, Responded well, Discharged Condition Good, Rehab Referral Accepted Patient has Accepted a Rehab Referral to: [facility] - Medication Discharge Medications: Ambulatory Orders Chlorpromazine [Thorazine -] 50 mg PO DAILY 01/18/19 Divalproex [Depakote -] 250 mg PO BID 01/18/19 Gabapentin 600 mg PO BID 01/18/19 traZODone HCL [Trazodone HCl] 50 mg PO HS 01/18/19 Albuterol Sulfate Inhaler - [Ventolin HFA Inhaler -] 2 puff IH Q4H PRN #1 inhaler 01/24/19 - Diagnosis (1) Cannabis dependence Current Visit: Yes Status: Acute (2) Cocaine dependence Current Visit: Yes Status: Acute Qualifiers: Substance use status: uncomplicated Qualified Code(s): F14.20 - Cocaine dependence, uncomplicated (3) Skin turgor poor Current Visit: Yes Status: Acute (4) Asthma Current Visit: Yes Status: Chronic Qualifiers: Asthma severity: moderate Asthma complication type: with acute exacerbation (5) Bipolar 1 disorder Current Visit: No Status: Acute - AMA Did Patient Leave Against Medical Advice: No
[2019-08-28] MEDS ORDERED: METHADONE HCL 5 MG TABLET (FOR DETOX USE ONLY) PO ONE (06:00)
--- NOTE | 2019-09-03 10:46 | EKG ---
Test Reason : Blood Pressure : / mmHG Vent. Rate : 106 BPM Atrial Rate : 106 BPM P-R Int : 132 ms QRS Dur : 086 ms QT Int : 344 ms P-R-T Axes : 039 040 047 degrees QTc Int : 456 ms SINUS TACHYCARDIA WHEN COMPARED WITH ECG OF 23-AUG-2019 03:23, NO SIGNIFICANT CHANGE WAS FOUND Confirmed by JYOTI ORONA MD ([id number]) on 09/03/2019 10:45:50 AM Referred By: Confirmed By:JYOTI ORONA MD
== END 2019-08-27 12:03 | disposition other institution (70) | DRG 773 ==
LOC: YASAS 18:44 → Y6N 08-23 03:38
PROVIDERS: ADMIT Allergy & Immunology; ATTEND Allergy & Immunology
PROC: HZ2ZZZZ Detoxification Services for Substance Abuse Treatment (ICD-10-PCS; principal; 2019-08-23)
DX: F10.230 Alcohol dependence with withdrawal, uncomplicated (principal); F11.23 Opioid dependence with withdrawal; F14.20 Cocaine dependence, uncomplicated; F12.20 Cannabis dependence, uncomplicated; J45.909 Unspecified asthma, uncomplicated; R23.8 Other skin changes
CPT/HCPCS: 36415; 80053; 81025; 82947; 85027; 86593; 93005; 93010; 94640; J0735

== ENCOUNTER 2020-09-21 03:00 | Inpatient (IN) | payer OTHER ==
[2020-09-21] MEDS ORDERED: MENTHOL/PHENOL 1 EACH UD MM PRN (04:08)
[2020-09-21] MEDS ORDERED: P-EPHED 60MG/TRIPROLIDI 2.5MG TABLET PO PRN (04:08)
[2020-09-21] MEDS ORDERED: MAGNESIUM CITRATE 300 ML BOTTLE PO PRN (04:08)
[2020-09-21] MEDS ORDERED: ACETAMINOPHEN 325 MG TABLET (FP) PO PRN ×2 (04:08)
[2020-09-21] MEDS ORDERED: ONDANSETRON *ODT* 4 MG TABLET SL PRN (04:08)
[2020-09-21] MEDS ORDERED: MAGNESIUM HYDROX 2400MG/30ML ORAL SUSPENSION 30 ML CUP PO PRN (04:08)
[2020-09-21] MEDS ORDERED: chlordiazePOXIDE HCL 25 MG CAPSULE PO PRN (04:31)
[2020-09-21] MEDS ORDERED: cloNIDine HCL 0.1 MG TABLET PO PRN (04:32)
[2020-09-21] MEDS ORDERED: METHADONE HCL 10 MG TABLET (FOR DETOX USE ONLY) PO ONE (04:32)
[2020-09-21] MEDS ORDERED: METHADONE HCL 10 MG TABLET (FOR DETOX USE ONLY) ONE (04:59)
[2020-09-21] MEDS: chlordiazePOXIDE HCL 25 MG CAPSULE PO SCH ×4 (05:02→22:15)
[2020-09-21 05:49] VITALS: BMI 23.0
[2020-09-21] MEDS ORDERED: METHADONE HCL 5 MG TABLET (FOR DETOX USE ONLY) PO ONE (10:00)
[2020-09-21] MEDS: predniSONE 20 MG TABLET (UD) PO SCH (11:33)
[2020-09-21] MEDS: PANTOPRAZOLE 40 MG TABLET PO SCH (11:34)
[2020-09-21] MEDS: PRENATAL VITAMINS W/ FOLIC ACID TABLET (FP) PO SCH (11:34)
[2020-09-21] MEDS: NICOTINE 21 MG/24 HOURS TOPICAL PATCH TD SCH (11:34)
[2020-09-21 13:00] LABS: HEMOGLOBIN 12.4 GM/dL (10.7-15.3); MCH 27.7 pg (25.7-33.7); MCHC 32.6 g/dl (32.0-36.0); MEAN PLT VOLUME 8.4 fl (7.5-11.1); PLATELET COUNT 519 K/MM3 (134-434); RBC 4.46 M/mm3 (3.60-5.2); RDW 16.5 % (11.6-15.6); WHITE BLOOD COUNT 17.8 K/mm3 (4.0-10.0)
[2020-09-21 13:05] LABS: POTASSIUM 3.8 mmol/L (3.5-5.1)
[2020-09-21 13:29] LABS: ALBUMIN 2.4 g/dl (3.4-5.0); BILIRUBIN,TOTAL 1.4 mg/dL (0.2-1); BLOOD UREA NITROGEN 15.4 mg/dL (7-18); CREATININE 0.9 mg/dL (0.55-1.3); TOT PROT 6.4 g/dl (6.4-8.2)
[2020-09-21 13:34] LABS: CALCIUM 8.6 mg/dL (8.5-10.1)
[2020-09-21] MEDS: APIXABAN 5 MG TABLET PO SCH ×2 (15:01→22:16)
[2020-09-21] MEDS: NICOTINE POLACRILEX 4 MG GUM BUC PRN ×2 (17:19→21:38)
[2020-09-21] MEDS: hydrOXYzine PAMOATE 25 MG CAPSULE (FP) PO PRN (21:38)
[2020-09-21] MEDS: METHOCARBAMOL 500 MG TABLET PO PRN (21:40)
[2020-09-21] MEDS ORDERED: QUEtiapine FUMARATE 100 MG TABLET (FP) PO SCH (22:00)
[2020-09-21] MEDS: MELATONIN 5 MG TABLETS PO SCH (22:14)
[2020-09-21] MEDS: MONTELUKAST NA 10 MG TABLET PO SCH (22:16)
[2020-09-21] MEDS: THIAMINE HCL 100 MG TABLET (FP) PO SCH (22:16)
[2020-09-22] MEDS: chlordiazePOXIDE HCL 25 MG CAPSULE PO SCH ×4 (05:28→22:08)
[2020-09-22] MEDS: METHOCARBAMOL 500 MG TABLET PO PRN ×4 (05:29→22:09)
[2020-09-22] MEDS: hydrOXYzine PAMOATE 25 MG CAPSULE (FP) PO PRN (05:30)
[2020-09-22] MEDS ORDERED: METHADONE HCL 5 MG TABLET (FOR DETOX USE ONLY) ONE (09:05)
[2020-09-22] MEDS ORDERED: METHADONE HCL 10 MG TABLET (FOR DETOX USE ONLY) ONE (09:05)
[2020-09-22] MEDS ORDERED: QUEtiapine FUMARATE 50 MG TABLET PO SCH (10:00)
[2020-09-22] MEDS ORDERED: METHADONE (DETOX) 20 MG, METHADONE (DETOX) 5 MG PO ONE (10:00)
[2020-09-22] MEDS: PRENATAL VITAMINS W/ FOLIC ACID TABLET (FP) PO SCH (10:24)
[2020-09-22] MEDS: PANTOPRAZOLE 40 MG TABLET PO SCH (10:25)
[2020-09-22] MEDS: APIXABAN 5 MG TABLET PO SCH ×2 (10:25→22:07)
[2020-09-22] MEDS: predniSONE 20 MG TABLET (UD) PO SCH (10:25)
[2020-09-22] MEDS: NICOTINE 21 MG/24 HOURS TOPICAL PATCH TD SCH (10:26)
[2020-09-22] MEDS: BUDESONIDE/FORMETEROL FUMARATE 80/4.5 mcg INHALER IH SCH ×2 (10:29→22:07)
[2020-09-22] MEDS: NICOTINE POLACRILEX 4 MG GUM BUC PRN ×3 (10:31→22:11)
[2020-09-22] MEDS ORDERED: ALBUTEROL SO4 2.5/IPRATROPIUM 0.5 INH SOL 3 ML VIAL.NEB. NEB PRN (12:22)
[2020-09-22] MEDS: ALBUTEROL SO4 HFA INHALER IH PRN (16:09)
[2020-09-22] MEDS: QUEtiapine FUMARATE 100 MG TABLET (FP) PO SCH (22:06)
[2020-09-22] MEDS: MONTELUKAST NA 10 MG TABLET PO SCH (22:07)
[2020-09-22] MEDS: MELATONIN 5 MG TABLETS PO SCH (22:07)
[2020-09-22] MEDS: THIAMINE HCL 100 MG TABLET (FP) PO SCH (22:07)
[2020-09-23] MEDS ORDERED: chlordiazePOXIDE HCL 10 MG CAPSULE PO PRN
[2020-09-23] MEDS: chlordiazePOXIDE HCL 10 MG CAPSULE PO SCH ×4 (05:48→22:35)
[2020-09-23] MEDS: METHOCARBAMOL 500 MG TABLET PO PRN ×2 (05:49→17:43)
[2020-09-23] MEDS: NICOTINE POLACRILEX 4 MG GUM BUC PRN ×4 (05:51→22:43)
[2020-09-23] MEDS ORDERED: METHADONE HCL 10 MG TABLET (FOR DETOX USE ONLY) PO ONE (10:00)
[2020-09-23] MEDS: PANTOPRAZOLE 40 MG TABLET PO SCH (10:36)
[2020-09-23] MEDS: PRENATAL VITAMINS W/ FOLIC ACID TABLET (FP) PO SCH (10:36)
[2020-09-23] MEDS: predniSONE 10 MG TABLET (UD) PO SCH (10:36)
[2020-09-23] MEDS: APIXABAN 5 MG TABLET PO SCH ×2 (10:36→22:35)
[2020-09-23] MEDS: BUDESONIDE/FORMETEROL FUMARATE 80/4.5 mcg INHALER IH SCH ×2 (10:38→22:36)
[2020-09-23] MEDS: NICOTINE 21 MG/24 HOURS TOPICAL PATCH TD SCH (10:38)
[2020-09-23 10:40] LABS: HEMATOCRIT 37.8 % (32.4-45.2); HEMOGLOBIN 12.3 GM/dL (10.7-15.3); MCH 27.9 pg (25.7-33.7); MCHC 32.6 g/dl (32.0-36.0); MEAN CELL VOLUME 85.6 fl (80-96); MEAN PLT VOLUME 8.5 fl (7.5-11.1); PLATELET COUNT 562 K/MM3 (134-434); RBC 4.41 M/mm3 (3.60-5.2); WHITE BLOOD COUNT 28.7 K/mm3 (4.0-10.0)
[2020-09-23 11:25] LABS: POTASSIUM 4.1 mmol/L (3.5-5.1)
[2020-09-23 11:32] LABS: BLOOD UREA NITROGEN 13.2 mg/dL (7-18)
[2020-09-23 11:34] LABS: BILIRUBIN,TOTAL 0.1 mg/dL (0.2-1); CALCIUM 9.6 mg/dL (8.5-10.1); TOT PROT 7.6 g/dl (6.4-8.2)
[2020-09-23 11:35] LABS: CREATININE 0.9 mg/dL (0.55-1.3)
[2020-09-23] MEDS: QUEtiapine FUMARATE 100 MG TABLET (FP) PO SCH ×2 (11:39→22:35)
[2020-09-23 11:40] LABS: ALBUMIN 3.1 g/dl (3.4-5.0)
[2020-09-23] MEDS: MAG HYDROX/AL HYDROX/SIMETH 30 ML UNIT-DOSE CUP PO PRN (17:43)
[2020-09-23] MEDS: MONTELUKAST NA 10 MG TABLET PO SCH (22:35)
[2020-09-23] MEDS: THIAMINE HCL 100 MG TABLET (FP) PO SCH (22:35)
[2020-09-23] MEDS: MELATONIN 5 MG TABLETS PO SCH (22:38)
[2020-09-24] MEDS: chlordiazePOXIDE HCL 10 MG CAPSULE PO SCH ×2 (07:41→18:00)
[2020-09-24] MEDS ORDERED: METHADONE HCL 5 MG TABLET (FOR DETOX USE ONLY) ONE (09:29)
[2020-09-24] MEDS ORDERED: METHADONE HCL 10 MG TABLET (FOR DETOX USE ONLY) ONE (09:29)
[2020-09-24] MEDS ORDERED: METHADONE (DETOX) 10 MG, METHADONE (DETOX) 5 MG PO ONE (10:00)
[2020-09-24] MEDS: PANTOPRAZOLE 40 MG TABLET PO SCH (10:20)
[2020-09-24] MEDS: APIXABAN 5 MG TABLET PO SCH ×2 (10:21→22:18)
[2020-09-24] MEDS: QUEtiapine FUMARATE 100 MG TABLET (FP) PO SCH ×2 (10:21→22:18)
[2020-09-24] MEDS: predniSONE 10 MG TABLET (UD) PO SCH (10:21)
[2020-09-24] MEDS: BUDESONIDE/FORMETEROL FUMARATE 80/4.5 mcg INHALER IH SCH ×2 (10:22→22:18)
[2020-09-24] MEDS: NICOTINE 21 MG/24 HOURS TOPICAL PATCH TD SCH (10:22)
[2020-09-24] MEDS: PRENATAL VITAMINS W/ FOLIC ACID TABLET (FP) PO SCH (10:22)
[2020-09-24] MEDS: METHOCARBAMOL 500 MG TABLET PO PRN ×2 (10:23→18:23)
[2020-09-24] MEDS: NICOTINE POLACRILEX 4 MG GUM BUC PRN ×3 (10:27→21:21)
[2020-09-24] MEDS ORDERED: chlordiazePOXIDE HCL 10 MG CAPSULE PO ONE (11:30)
[2020-09-24] MEDS: DICYCLOMINE HCL 10 MG CAPSULE PO PRN ×2 (14:12→20:12)
[2020-09-24] MEDS: ALBUTEROL SO4 HFA INHALER IH PRN (18:25)
[2020-09-24] MEDS: MAG HYDROX/AL HYDROX/SIMETH 30 ML UNIT-DOSE CUP PO PRN (20:05)
[2020-09-24] MEDS: MELATONIN 5 MG TABLETS PO SCH (22:18)
[2020-09-24] MEDS: THIAMINE HCL 100 MG TABLET (FP) PO SCH (22:18)
[2020-09-24] MEDS: MONTELUKAST NA 10 MG TABLET PO SCH (22:19)
[2020-09-25] MEDS ORDERED: chlordiazePOXIDE HCL 10 MG CAPSULE PO ONE (05:00)
[2020-09-25] MEDS: METHOCARBAMOL 500 MG TABLET PO PRN ×2 (06:41→15:42)
[2020-09-25] MEDS: NICOTINE POLACRILEX 4 MG GUM BUC PRN ×3 (06:42→17:55)
[2020-09-25] MEDS: ALBUTEROL SO4 HFA INHALER IH PRN (06:45)
[2020-09-25] MEDS ORDERED: METHADONE HCL 10 MG TABLET (FOR DETOX USE ONLY) PO ONE (10:00)
[2020-09-25] MEDS ORDERED: predniSONE 20 MG TABLET (UD) PO SCH (10:00)
[2020-09-25] MEDS: APIXABAN 5 MG TABLET PO SCH (10:06)
[2020-09-25] MEDS: PANTOPRAZOLE 40 MG TABLET PO SCH (10:07)
[2020-09-25] MEDS: NICOTINE 21 MG/24 HOURS TOPICAL PATCH TD SCH (10:07)
[2020-09-25] MEDS: BUDESONIDE/FORMETEROL FUMARATE 80/4.5 mcg INHALER IH SCH (10:07)
[2020-09-25] MEDS: PRENATAL VITAMINS W/ FOLIC ACID TABLET (FP) PO SCH (10:07)
[2020-09-25] MEDS: QUEtiapine FUMARATE 100 MG TABLET (FP) PO SCH (10:07)
[2020-09-25] MEDS: MAG HYDROX/AL HYDROX/SIMETH 30 ML UNIT-DOSE CUP PO PRN ×2 (10:09→17:55)
[2020-09-25] MEDS ORDERED: hydrOXYzine PAMOATE 25 MG CAPSULE (FP) PO PRN (15:48)
[2020-09-25] MEDS ORDERED: diazePAM 5 MG TABLET PO PRN (15:56)
[2020-09-25] MEDS ORDERED: COLLOIDAL OATMEAL 1 BAR EACH TP PRN (17:55)
[2020-09-25 18:22] VITALS: BP 114/76; PULSE 68; TEMP 96.6
[2020-09-26] MEDS ORDERED: METHADONE HCL 5 MG TABLET (FOR DETOX USE ONLY) PO ONE (06:00)
[2020-09-27] MEDS ORDERED: predniSONE 10 MG TABLET (UD) PO SCH (10:00)
== END 2020-09-25 20:15 | disposition left against medical advice (07) | DRG 770 ==
LOC: YASAS 03:00 → Y3N 10:00
PROVIDERS: ADMIT Allergy & Immunology; ATTEND Allergy & Immunology
PROC: HZ2ZZZZ Detoxification Services for Substance Abuse Treatment (ICD-10-PCS; principal; 2020-09-21)
DX: F11.23 Opioid dependence with withdrawal (principal); F10.230 Alcohol dependence with withdrawal, uncomplicated; F14.20 Cocaine dependence, uncomplicated; F12.20 Cannabis dependence, uncomplicated; F17.210 Nicotine dependence, cigarettes, uncomplicated; F31.9 Bipolar disorder, unspecified; J45.909 Unspecified asthma, uncomplicated; G47.00 Insomnia, unspecified; M54.5 Low back pain; G89.29 Other chronic pain; Z62.810 Personal history of physical and sexual abuse in childhood; Z91.410 Personal history of adult physical and sexual abuse; Z86.718 Personal history of other venous thrombosis and embolism; Z79.01 Long term (current) use of anticoagulants; Z87.01 Personal history of pneumonia (recurrent); Z88.6 Allergy status to analgesic agent; Z88.0 Allergy status to penicillin
CPT/HCPCS: 36415; 80053; 81025; 85027; 86780; 93005; 93010; C9803; U0003

== ENCOUNTER 2021-03-07 15:22 | Inpatient (IN) | payer OTHER ==
[2021-03-07 16:01] VITALS: BMI 20.4
[2021-03-07] MEDS ORDERED: ALBUTEROL SO4 HFA INHALER IH PRN (19:30)
[2021-03-07] MEDS ORDERED: MAGNESIUM CITRATE 300 ML BOTTLE PO PRN (20:43)
[2021-03-07] MEDS ORDERED: NALOXONE HCL 0.4 MG/ML VIAL IM PRN (20:43)
[2021-03-07] MEDS ORDERED: ACETAMINOPHEN 325 MG TABLET (FP) PO PRN (20:43)
[2021-03-07] MEDS ORDERED: ONDANSETRON *ODT* 4 MG TABLET SL PRN (20:43)
[2021-03-07] MEDS ORDERED: NALOXONE (NARCAN) HCL 4 MG/0.1 ML SPRAY NS PRN (20:43)
[2021-03-07] MEDS ORDERED: MENTHOL/PHENOL 1 EACH UD MM PRN (20:43)
[2021-03-07] MEDS ORDERED: DICYCLOMINE HCL 10 MG CAPSULE PO PRN (20:43)
[2021-03-07] MEDS ORDERED: MAG HYDROX/AL HYDROX/SIMETH 30 ML UNIT-DOSE CUP PO PRN (20:43)
[2021-03-07] MEDS ORDERED: P-EPHED 60MG/TRIPROLIDI 2.5MG TABLET PO PRN (20:43)
[2021-03-07] MEDS ORDERED: MAGNESIUM HYDROX 2400MG/30ML ORAL SUSPENSION 30 ML CUP PO PRN (20:43)
[2021-03-07] MEDS ORDERED: cloNIDine HCL 0.1 MG TABLET PO PRN (21:47)
[2021-03-07] MEDS ORDERED: methaDONE HCL 10 MG TABLET (FOR DETOX USE ONLY) PO ONE (21:47)
[2021-03-07] MEDS: METHOCARBAMOL 500 MG TABLET PO PRN (22:30)
[2021-03-07] MEDS: THIAMINE HCL 100 MG TABLET (FP) PO SCH (22:30)
[2021-03-07] MEDS: diazePAM 5 MG TABLET PO SCH (22:30)
[2021-03-07] MEDS: hydrOXYzine PAMOATE 25 MG CAPSULE (FP) PO PRN (22:30)
[2021-03-07] MEDS: MELATONIN 5 MG TABLETS PO SCH (22:31)
[2021-03-07] MEDS: ALBUTEROL SO4 HFA INHALER IH PRN (22:33)
[2021-03-08] MEDS: hydrOXYzine PAMOATE 25 MG CAPSULE (FP) PO PRN ×2 (05:24→17:16)
[2021-03-08] MEDS: METHOCARBAMOL 500 MG TABLET PO PRN ×2 (05:24→22:16)
[2021-03-08] MEDS: diazePAM 5 MG TABLET PO SCH ×4 (05:24→22:17)
[2021-03-08] MEDS ORDERED: methaDONE HCL 10 MG TABLET (FOR DETOX USE ONLY) ONE (09:10)
[2021-03-08] MEDS: PRENATAL VITAMINS W/ FOLIC ACID TABLET (FP) PO SCH (10:15)
[2021-03-08] MEDS: NICOTINE 21 MG/24 HOURS TOPICAL PATCH TD SCH (10:15)
[2021-03-08 10:53] LABS: HEMOGLOBIN 13.8 GM/dL (10.7-15.3); MCH 27.4 pg (25.7-33.7); MCHC 32.8 g/dl (32.0-36.0); MEAN CELL VOLUME 83.5 fl (80-96); MEAN PLT VOLUME 7.4 fl (7.5-11.1); PLATELET COUNT 501 10^3/uL (134-434); RBC 5.02 M/mm3 (3.60-5.2); RDW 17.4 % (11.6-15.6); WHITE BLOOD COUNT 8.9 K/mm3 (4.0-10.0)
[2021-03-08 11:23] LABS: ALBUMIN 2.4 g/dl (3.4-5.0); BILIRUBIN,TOTAL 0.4 mg/dL (0.2-1); BLOOD UREA NITROGEN 9.8 mg/dL (7-18); CALCIUM 8.7 mg/dL (8.5-10.1); CREATININE 0.8 mg/dL (0.55-1.3)
[2021-03-08] MEDS: ALBUTEROL SO4 HFA INHALER IH PRN ×2 (15:57→22:20)
[2021-03-08] MEDS: NICOTINE 10 MG CARTRIDGE (INHALER) IH PRN ×2 (16:21→22:43)
[2021-03-08] MEDS ORDERED: MASKS NR ONE (19:56)
[2021-03-08] MEDS: BUDESONIDE/FORMETEROL FUMARATE 80/4.5 mcg INHALER IH SCH (22:15)
[2021-03-08] MEDS: THIAMINE HCL 100 MG TABLET (FP) PO SCH (22:16)
[2021-03-08] MEDS: MELATONIN 5 MG TABLETS PO SCH (22:16)
[2021-03-08] MEDS: APIXABAN 5 MG TABLET PO SCH (22:16)
[2021-03-08] MEDS: MONTELUKAST NA 10 MG TABLET PO SCH (22:16)
[2021-03-09] MEDS: diazePAM 5 MG TABLET PO SCH ×3 (05:22→22:12)
[2021-03-09] MEDS: hydrOXYzine PAMOATE 25 MG CAPSULE (FP) PO PRN ×2 (05:24→22:17)
[2021-03-09] MEDS: METHOCARBAMOL 500 MG TABLET PO PRN ×2 (05:24→16:57)
[2021-03-09] MEDS: APIXABAN 5 MG TABLET PO SCH ×2 (09:55→22:12)
[2021-03-09] MEDS: PANTOPRAZOLE 40 MG TABLET PO SCH (09:55)
[2021-03-09] MEDS: BUDESONIDE/FORMETEROL FUMARATE 80/4.5 mcg INHALER IH SCH ×2 (09:55→22:13)
[2021-03-09] MEDS: PRENATAL VITAMINS W/ FOLIC ACID TABLET (FP) PO SCH (09:55)
[2021-03-09] MEDS: NICOTINE 21 MG/24 HOURS TOPICAL PATCH TD SCH (09:56)
[2021-03-09] MEDS ORDERED: methaDONE HCL 10 MG TABLET (FOR DETOX USE ONLY) PO ONE (10:00)
[2021-03-09] MEDS: diazePAM 5 MG TABLET PO PRN ×2 (10:12→17:03)
[2021-03-09] MEDS: ACETAMINOPHEN 325 MG TABLET (FP) PO PRN (10:15)
[2021-03-09] MEDS: MELATONIN 5 MG TABLETS PO SCH (22:12)
[2021-03-09] MEDS: MONTELUKAST NA 10 MG TABLET PO SCH (22:12)
[2021-03-09] MEDS: THIAMINE HCL 100 MG TABLET (FP) PO SCH (22:12)
[2021-03-09] MEDS: NICOTINE 10 MG CARTRIDGE (INHALER) IH PRN (22:15)
[2021-03-10] MEDS: diazePAM 5 MG TABLET PO PRN ×3 (02:15→15:21)
[2021-03-10] MEDS: METHOCARBAMOL 500 MG TABLET PO PRN ×3 (02:15→23:19)
[2021-03-10] MEDS: hydrOXYzine PAMOATE 25 MG CAPSULE (FP) PO PRN ×3 (02:15→23:19)
[2021-03-10] MEDS: ACETAMINOPHEN 325 MG TABLET (FP) PO PRN ×2 (02:16→15:21)
[2021-03-10] MEDS: diazePAM 5 MG TABLET PO SCH ×2 (06:34→18:06)
[2021-03-10] MEDS ORDERED: methaDONE HCL 10 MG TABLET (FOR DETOX USE ONLY) ONE (09:25)
[2021-03-10] MEDS: APIXABAN 5 MG TABLET PO SCH ×2 (10:56→23:09)
[2021-03-10] MEDS: PANTOPRAZOLE 40 MG TABLET PO SCH (10:56)
[2021-03-10] MEDS: NICOTINE 21 MG/24 HOURS TOPICAL PATCH TD SCH (10:56)
[2021-03-10] MEDS: PRENATAL VITAMINS W/ FOLIC ACID TABLET (FP) PO SCH (10:56)
[2021-03-10] MEDS: BUDESONIDE/FORMETEROL FUMARATE 80/4.5 mcg INHALER IH SCH ×2 (10:57→23:08)
[2021-03-10] MEDS: NICOTINE 10 MG CARTRIDGE (INHALER) IH PRN ×2 (11:05→23:20)
[2021-03-10 13:16] LABS: ALBUMIN 2.6 g/dl (3.4-5.0); BLOOD UREA NITROGEN 8.6 mg/dL (7-18); CALCIUM 9.3 mg/dL (8.5-10.1)
[2021-03-10 13:20] LABS: CREATININE 0.8 mg/dL (0.55-1.3)
[2021-03-10 13:21] LABS: BILIRUBIN,TOTAL 0.1 mg/dL (0.2-1); HEMATOCRIT 44.6 % (32.4-45.2); HEMOGLOBIN 14.3 GM/dL (10.7-15.3); MCH 27.4 pg (25.7-33.7); MCHC 32.1 g/dl (32.0-36.0); MEAN CELL VOLUME 85.2 fl (80-96); MEAN PLT VOLUME 7.5 fl (7.5-11.1); PLATELET COUNT 507 10^3/uL (134-434); RBC 5.24 M/mm3 (3.60-5.2); RDW 17.9 % (11.6-15.6); TOT PROT 7.8 g/dl (6.4-8.2); WHITE BLOOD COUNT 6.3 K/mm3 (4.0-10.0)
[2021-03-10] MEDS: MONTELUKAST NA 10 MG TABLET PO SCH (23:08)
[2021-03-10] MEDS: THIAMINE HCL 100 MG TABLET (FP) PO SCH (23:09)
[2021-03-10] MEDS: MELATONIN 5 MG TABLETS PO SCH (23:09)
[2021-03-10] MEDS: ALBUTEROL SO4 HFA INHALER IH PRN (23:09)
[2021-03-11] MEDS: ACETAMINOPHEN 325 MG TABLET (FP) PO PRN (01:41)
[2021-03-11] MEDS ORDERED: diazePAM 5 MG TABLET PO ONE (06:00)
[2021-03-11] MEDS: hydrOXYzine PAMOATE 25 MG CAPSULE (FP) PO PRN ×2 (09:40→17:56)
[2021-03-11] MEDS: APIXABAN 5 MG TABLET PO SCH (09:40)
[2021-03-11] MEDS: BUDESONIDE/FORMETEROL FUMARATE 80/4.5 mcg INHALER IH SCH (09:40)
[2021-03-11] MEDS: NICOTINE 21 MG/24 HOURS TOPICAL PATCH TD SCH (09:40)
[2021-03-11] MEDS: METHOCARBAMOL 500 MG TABLET PO PRN ×2 (09:40→17:56)
[2021-03-11] MEDS: PANTOPRAZOLE 40 MG TABLET PO SCH (09:40)
[2021-03-11] MEDS ORDERED: methaDONE HCL 10 MG TABLET (FOR DETOX USE ONLY) PO ONE (10:00)
[2021-03-11] MEDS: ALBUTEROL SO4 HFA INHALER IH PRN ×2 (10:05→17:56)
[2021-03-11] MEDS: PRENATAL VITAMINS W/ FOLIC ACID TABLET (FP) PO SCH (10:05)
[2021-03-11 10:40] VITALS: TEMP 98.2
[2021-03-11 17:35] VITALS: BP 112/73; PULSE 120
== END 2021-03-11 19:56 | disposition other institution (70) | DRG 773 ==
LOC: YASAS 15:22 → Y3N 20:48
PROVIDERS: ADMIT Allergy & Immunology; ATTEND Allergy & Immunology
PROC: HZ2ZZZZ Detoxification Services for Substance Abuse Treatment (ICD-10-PCS; principal; 2021-03-07)
DX: F11.23 Opioid dependence with withdrawal (principal); F10.230 Alcohol dependence with withdrawal, uncomplicated; F14.20 Cocaine dependence, uncomplicated; F17.210 Nicotine dependence, cigarettes, uncomplicated; F19.24 Other psychoactive substance dependence with psychoactive substance-induced mood disorder; D47.3 Essential (hemorrhagic) thrombocythemia; D75.1 Secondary polycythemia; G47.00 Insomnia, unspecified; J45.20 Mild intermittent asthma, uncomplicated; M54.5 Low back pain; G89.29 Other chronic pain; R74.01 Elevation of levels of liver transaminase levels; R23.8 Other skin changes; R63.8 Other symptoms and signs concerning food and fluid intake; Z62.810 Personal history of physical and sexual abuse in childhood; Z91.410 Personal history of adult physical and sexual abuse; Z86.718 Personal history of other venous thrombosis and embolism; Z79.01 Long term (current) use of anticoagulants; Z20.822 Contact with and (suspected) exposure to COVID-19; Z86.59 Personal history of other mental and behavioral disorders; Z88.6 Allergy status to analgesic agent; Z88.8 Allergy status to other drugs, medicaments and biological substances
CPT/HCPCS: 36415; 80053; 84703; 85027; 86780; 93005; 93010; C9803; Q0162; U0003; U0005

== ENCOUNTER 2022-10-30 11:23 | Inpatient (IN) | payer OTHER ==
[2022-10-30 12:00] VITALS: BMI 20.5
[2022-10-30] MEDS ORDERED: BENZOCAINE/MENTHOL (CHLORASEPTIC ) LOZENGE MM PRN (12:51)
[2022-10-30] MEDS ORDERED: ONDANSETRON *ODT* 4 MG TABLET SL PRN (12:51)
[2022-10-30] MEDS ORDERED: NALOXONE HCL 0.4 MG/ML VIAL IM PRN (12:51)
[2022-10-30] MEDS ORDERED: MAGNESIUM HYDROX 2400MG/30ML ORAL SUSPENSION 30 ML CUP PO PRN (12:51)
[2022-10-30] MEDS ORDERED: BENZONATATE 200 MG CAPSULE PO PRN (12:51)
[2022-10-30] MEDS ORDERED: POLYETHYLENE GLYCOL (HEALTHYLAX) 3350 17 GM PACKET PO PRN (12:51)
[2022-10-30] MEDS ORDERED: BISMUTH SUBSALICYLATE 524 MG/30 ML PO PRN (12:51)
[2022-10-30] MEDS ORDERED: NICOTINE POLACRILEX 4 MG GUM BUC PRN (12:51)
[2022-10-30] MEDS ORDERED: MAG HYDROX/AL HYDROX/SIMETH 30 ML UNIT-DOSE CUP PO PRN (12:51)
[2022-10-30] MEDS ORDERED: ACETAMINOPHEN 325 MG TABLET (FP) PO PRN (12:51)
[2022-10-30] MEDS ORDERED: NALOXONE HCL (KLOXXADO) 8 MG SPRAY NS PRN (12:51)
[2022-10-30] MEDS ORDERED: DICYCLOMINE HCL 10 MG CAPSULE PO PRN (12:51)
[2022-10-30] MEDS ORDERED: cloNIDine HCL 0.1 MG TABLET PO PRN (12:51)
[2022-10-30] MEDS ORDERED: LOPERAMIDE HCL 2 MG CAPSULE PO PRN (12:51)
[2022-10-30] MEDS ORDERED: ALBUTEROL SO4 0.083% IH SOL 2.5 MG/3 ML VIAL.NEB. NEB PRN (13:02)
[2022-10-30] MEDS ORDERED: methaDONE HCL 10 MG TABLET (FOR DETOX USE ONLY) PO ONE ×2 (14:30→16:00)
[2022-10-30 16:10] LABS: HEMATOCRIT 47.7 % (32.4-45.2); HEMOGLOBIN 16.1 GM/dL (10.7-15.3); MCH 30.4 pg (25.7-33.7); MCHC 33.8 g/dl (32.0-36.0); MEAN CELL VOLUME 89.8 fl (80-96); MEAN PLT VOLUME 7.8 fl (7.5-11.1); PLATELET COUNT 419 10^3/uL (134-434); RBC 5.31 M/mm3 (3.60-5.2); RDW 14.8 % (11.6-15.6); WHITE BLOOD COUNT 4.3 K/mm3 (4.0-10.0)
[2022-10-30 16:19] LABS: CALCIUM 9.7 mg/dL (8.5-10.1)
[2022-10-30 16:20] LABS: ALBUMIN 3.2 g/dl (3.4-5.0); BLOOD UREA NITROGEN 16.6 mg/dL (7-18)
[2022-10-30 16:23] LABS: CREATININE 0.9 mg/dL (0.55-1.3)
[2022-10-30 16:25] LABS: BILIRUBIN,TOTAL 0.3 mg/dL (0.2-1); TOT PROT 8.1 g/dl (6.4-8.2)
[2022-10-30] MEDS: INSULIN SLIDING SCALE (NOVOLOG) 1 VIAL SQ SCH ×2 (17:03→22:48)
[2022-10-30] MEDS ORDERED: ALBUTEROL SO4 HFA INHALER IH PRN (17:37)
[2022-10-30] MEDS: ALBUTEROL SO4 HFA INHALER IH PRN ×2 (17:39→22:48)
[2022-10-30] MEDS ORDERED: ALBUTEROL SO4 2.5/IPRATROPIUM 0.5 INH SOL 3 ML VIAL.NEB. NEB ONE (17:51)
[2022-10-30] MEDS: predniSONE 20 MG TABLET (UD) PO SCH (18:19)
[2022-10-30] MEDS: ALBUTEROL SO4 2.5/IPRATROPIUM 0.5 INH SOL 3 ML VIAL.NEB. NEB SCH (20:18)
[2022-10-30] MEDS: MONTELUKAST NA 10 MG TABLET PO SCH (22:46)
[2022-10-30] MEDS: APIXABAN 5 MG TABLET PO SCH (22:46)
[2022-10-30] MEDS: MELATONIN 5 MG TABLETS PO SCH (22:46)
[2022-10-30] MEDS: THIAMINE HCL 100 MG TABLET (FP) PO SCH (22:46)
[2022-10-30] MEDS: BUDESONIDE/FORMETEROL FUMARATE 160/4.5 mcg INHALER IH SCH (22:46)
[2022-10-31] MEDS: INSULIN SLIDING SCALE (NOVOLOG) 1 VIAL SQ SCH ×4 (06:13→22:48)
[2022-10-31] MEDS: ALBUTEROL SO4 2.5/IPRATROPIUM 0.5 INH SOL 3 ML VIAL.NEB. NEB SCH ×3 (08:13→19:30)
[2022-10-31] MEDS: APIXABAN 5 MG TABLET PO SCH ×2 (10:41→22:18)
[2022-10-31] MEDS: predniSONE 20 MG TABLET (UD) PO SCH (10:41)
[2022-10-31] MEDS: PANTOPRAZOLE 40 MG TABLET PO SCH (10:41)
[2022-10-31] MEDS: PRENATAL VITAMINS W/ FOLIC ACID TABLET (FP) PO SCH (10:41)
[2022-10-31] MEDS: BUDESONIDE/FORMETEROL FUMARATE 160/4.5 mcg INHALER IH SCH ×2 (10:43→22:21)
[2022-10-31] MEDS: NICOTINE 21 MG/24 HOURS TOPICAL PATCH TD PRN (10:45)
[2022-10-31] MEDS: ALBUTEROL SO4 HFA INHALER IH PRN ×2 (17:30→22:21)
[2022-10-31] MEDS ORDERED: QUEtiapine FUMARATE 50 MG TABLET PO SCH (22:00)
[2022-10-31] MEDS: MONTELUKAST NA 10 MG TABLET PO SCH (22:18)
[2022-10-31] MEDS: THIAMINE HCL 100 MG TABLET (FP) PO SCH (22:18)
[2022-10-31] MEDS: MELATONIN 5 MG TABLETS PO SCH (22:18)
[2022-10-31] MEDS: hydrOXYzine PAMOATE 25 MG CAPSULE (FP) PO PRN (22:20)
[2022-11-01] MEDS: INSULIN SLIDING SCALE (NOVOLOG) 1 VIAL SQ SCH ×4 (06:49→22:34)
[2022-11-01] MEDS: ALBUTEROL SO4 2.5/IPRATROPIUM 0.5 INH SOL 3 ML VIAL.NEB. NEB SCH ×5 (06:50→22:33)
[2022-11-01] MEDS ORDERED: methaDONE HCL 10 MG TABLET (FOR DETOX USE ONLY) PO ONE (10:00)
[2022-11-01] MEDS: APIXABAN 5 MG TABLET PO SCH ×2 (10:32→22:32)
[2022-11-01] MEDS: PRENATAL VITAMINS W/ FOLIC ACID TABLET (FP) PO SCH (10:32)
[2022-11-01] MEDS: PANTOPRAZOLE 40 MG TABLET PO SCH (10:32)
[2022-11-01] MEDS: predniSONE 20 MG TABLET (UD) PO SCH (10:33)
[2022-11-01] MEDS: BUDESONIDE/FORMETEROL FUMARATE 160/4.5 mcg INHALER IH SCH ×2 (10:34→22:33)
[2022-11-01] MEDS: hydrOXYzine PAMOATE 25 MG CAPSULE (FP) PO PRN (13:14)
[2022-11-01] MEDS: NICOTINE 21 MG/24 HOURS TOPICAL PATCH TD PRN (13:17)
[2022-11-01] MEDS: MELATONIN 5 MG TABLETS PO SCH (22:32)
[2022-11-01] MEDS: QUEtiapine FUMARATE 100 MG TABLET (FP) PO SCH (22:32)
[2022-11-01] MEDS: MONTELUKAST NA 10 MG TABLET PO SCH (22:32)
[2022-11-01] MEDS: THIAMINE HCL 100 MG TABLET (FP) PO SCH (22:32)
[2022-11-02] MEDS: INSULIN SLIDING SCALE (NOVOLOG) 1 VIAL SQ SCH ×4 (06:37→22:16)
[2022-11-02] MEDS: ALBUTEROL SO4 2.5/IPRATROPIUM 0.5 INH SOL 3 ML VIAL.NEB. NEB SCH ×4 (08:25→20:00)
[2022-11-02] MEDS: predniSONE 20 MG TABLET (UD) PO SCH (10:03)
[2022-11-02] MEDS: PRENATAL VITAMINS W/ FOLIC ACID TABLET (FP) PO SCH (10:03)
[2022-11-02] MEDS: PANTOPRAZOLE 40 MG TABLET PO SCH (10:03)
[2022-11-02] MEDS: APIXABAN 5 MG TABLET PO SCH ×2 (10:03→22:15)
[2022-11-02] MEDS: BUDESONIDE/FORMETEROL FUMARATE 160/4.5 mcg INHALER IH SCH ×2 (10:04→22:15)
[2022-11-02] MEDS: NICOTINE 21 MG/24 HOURS TOPICAL PATCH TD PRN (10:14)
[2022-11-02] MEDS: hydrOXYzine PAMOATE 25 MG CAPSULE (FP) PO PRN (13:23)
[2022-11-02] MEDS: THIAMINE HCL 100 MG TABLET (FP) PO SCH (22:15)
[2022-11-02] MEDS: MONTELUKAST NA 10 MG TABLET PO SCH (22:15)
[2022-11-02] MEDS: MELATONIN 5 MG TABLETS PO SCH (22:15)
[2022-11-02] MEDS: QUEtiapine FUMARATE 100 MG TABLET (FP) PO SCH (22:15)
[2022-11-03] MEDS: INSULIN SLIDING SCALE (NOVOLOG) 1 VIAL SQ SCH ×2 (06:37→11:03)
[2022-11-03] MEDS: ALBUTEROL SO4 2.5/IPRATROPIUM 0.5 INH SOL 3 ML VIAL.NEB. NEB SCH ×2 (08:00→11:04)
[2022-11-03] MEDS ORDERED: methaDONE HCL 10 MG TABLET (FOR DETOX USE ONLY) PO ONE (10:00)
[2022-11-03] MEDS: PANTOPRAZOLE 40 MG TABLET PO SCH (10:35)
[2022-11-03] MEDS: predniSONE 20 MG TABLET (UD) PO SCH (10:35)
[2022-11-03] MEDS: PRENATAL VITAMINS W/ FOLIC ACID TABLET (FP) PO SCH (10:35)
[2022-11-03] MEDS: APIXABAN 5 MG TABLET PO SCH (10:35)
[2022-11-03] MEDS: hydrOXYzine PAMOATE 25 MG CAPSULE (FP) PO PRN (10:37)
[2022-11-03] MEDS: BUDESONIDE/FORMETEROL FUMARATE 160/4.5 mcg INHALER IH SCH (10:38)
[2022-11-03 10:55] VITALS: BP 117/72; PULSE 110; RESP 16; TEMP 97.8
== END 2022-11-03 11:32 | disposition left against medical advice (07) | DRG 770 ==
LOC: YASAS 11:23 → Y3N 13:14
PROVIDERS: ADMIT Allergy & Immunology; ATTEND Surgery
PROC: HZ2ZZZZ Detoxification Services for Substance Abuse Treatment (ICD-10-PCS; principal; 2022-10-30)
DX: F11.23 Opioid dependence with withdrawal (principal); F14.20 Cocaine dependence, uncomplicated; F17.210 Nicotine dependence, cigarettes, uncomplicated; F20.9 Schizophrenia, unspecified; E10.9 Type 1 diabetes mellitus without complications; Z79.4 Long term (current) use of insulin; J45.20 Mild intermittent asthma, uncomplicated; R79.89 Other specified abnormal findings of blood chemistry; Z88.8 Allergy status to other drugs, medicaments and biological substances
CPT/HCPCS: 36415; 80053; 82962; 85027; 86780; 87811; 93005; 93010; 94640; C9803-CS; U0003; U0005

== ENCOUNTER 2023-02-19 22:12 | Inpatient (IN) | payer OTHER ==
[2023-02-19 22:28] VITALS: BMI 18.8
[2023-02-19] MEDS ORDERED: MAGNESIUM SULF 50% (8.12 MEQ/2 ML-1 GM VIAL) IVPB ONE (22:33)
[2023-02-19] MEDS ORDERED: MAGNESIUM SULFATE IN WATER 2 GM/50 ML IVPB IVPB ONE (22:33)
[2023-02-19] MEDS ORDERED: ALBUTEROL SO4 0.5 % INH SOLN 2.5 MG/0.5 ML VIAL.NEB. NEB ONE (22:33)
[2023-02-19] MEDS: ALBUTEROL SO4 0.083% IH SOL 2.5 MG/3 ML VIAL.NEB. NEB SCH ×3 (22:40→23:10)
[2023-02-19 23:02] LABS: BASO % 0.5 % (0-2.0); EOS % 6.5 % (0-4.5); HEMATOCRIT 41.2 % (32.4-45.2); LYMPH % 28.3 % (8-40); MCH 30.3 pg (25.7-33.7); MCHC 34.1 g/dl (32.0-36.0); MEAN CELL VOLUME 88.7 fl (80-96); MEAN PLT VOLUME 7.5 fl (7.5-11.1); MONO % 7.2 % (3.8-10.2); NEUT % 57.5 % (42.8-82.8); PLATELET COUNT 372 10^3/uL (134-434); RBC 4.64 M/mm3 (3.60-5.2); RDW 14.9 % (11.6-15.6); WHITE BLOOD COUNT 5.9 K/mm3 (4.0-10.0)
[2023-02-19 23:08] LABS: VENOUS BASE EXCESS 1.5 mmol/L (-2-2); VENOUS O2 SATURATION 89.5 % (70-80); VENOUS PCO2 51.8 mmHg (38-52); VENOUS PH 7.351 (7.310-7.410)
[2023-02-19 23:13] LABS: CHLORIDE 106 mmol/L (98-107); POTASSIUM 4.2 mmol/L (3.5-5.1); SODIUM 140 mmol/L (136-145)
[2023-02-19 23:15] LABS: CALCIUM 8.6 mg/dL (8.5-10.1)
[2023-02-19 23:16] LABS: ANION GAP 4 MMOL/L (8-16); BLOOD UREA NITROGEN 16.2 mg/dL (7-18); CO2 31 mmol/L (21-32); GLUCOSE,RANDOM 128 mg/dL (74-106)
[2023-02-19 23:19] LABS: CREATININE 0.9 mg/dL (0.55-1.3); SGOT/AST 33 U/L (15-37); SGPT/ALT 37 U/L (13-61)
[2023-02-19 23:20] LABS: BILIRUBIN,TOTAL < 0.1 mg/dL (0.2-1)
[2023-02-19 23:21] LABS: TOT PROT 6.8 g/dl (6.4-8.2)
[2023-02-19 23:22] LABS: ALK PHOS 132 U/L (45-117)
[2023-02-20] MEDS ORDERED: cloNIDine HCL 0.1 MG TABLET PO PRN (04:43)
[2023-02-20] MEDS ORDERED: methaDONE HCL 10 MG TABLET (FOR DETOX USE ONLY) PO ONE (04:43)
[2023-02-20] MEDS ORDERED: LORazepam 2 MG/ML SDV VIAL IVPUSH PRN ×2 (04:44→11:38)
[2023-02-20] MEDS ORDERED: ENOXAPARIN NA (PORCINE) 40 MG/0.4 ML DISP.SYRIN SQ SCH (04:49)
[2023-02-20] MEDS ORDERED: ENOXAPARIN NA (PORCINE) 60 MG/0.6 ML DISP.SYRIN SQ ONE (04:57)
[2023-02-20] MEDS ORDERED: methaDONE HCL 10 MG TABLET ONE (05:00)
[2023-02-20] MEDS ORDERED: methaDONE HCL 10 MG TABLET PO ONE (05:15)
[2023-02-20] MEDS ORDERED: ALBUTEROL SO4 2.5/IPRATROPIUM 0.5 INH SOL 3 ML VIAL.NEB. NEB SCH (05:30)
[2023-02-20] MEDS: INSULIN SLIDING SCALE (NOVOLOG) 1 VIAL SQ SCH ×4 (07:37→21:31)
[2023-02-20] MEDS ORDERED: ALBUTEROL SO4 2.5/IPRATROPIUM 0.5 INH SOL 3 ML VIAL.NEB. NEB ONE (07:38)
[2023-02-20] MEDS: ALBUTEROL SO4 2.5/IPRATROPIUM 0.5 INH SOL 3 ML VIAL.NEB. NEB SCH ×4 (07:39→19:40)
[2023-02-20] MEDS: methylPREDNISolone NA SUCC 40 MG/1 ML VIAL IVPUSH SCH ×2 (09:34→18:25)
[2023-02-20] MEDS: ENOXAPARIN NA (PORCINE) 60 MG/0.6 ML DISP.SYRIN SQ SCH ×2 (09:34→21:31)
[2023-02-20] MEDS: BUDESONIDE/FORMETEROL FUMARATE 160/4.5 mcg INHALER IH SCH ×2 (11:29→21:33)
[2023-02-20] MEDS: MONTELUKAST NA 10 MG TABLET PO SCH (21:32)
[2023-02-20] MEDS ORDERED: ALBUTEROL SO4 0.083% IH SOL 2.5 MG/3 ML VIAL.NEB. NEB PRN (22:47)
[2023-02-21] MEDS: methylPREDNISolone NA SUCC 40 MG/1 ML VIAL IVPUSH SCH ×3 (04:00→17:01)
[2023-02-21] MEDS: INSULIN SLIDING SCALE (NOVOLOG) 1 VIAL SQ SCH ×2 (06:28→12:27)
[2023-02-21] MEDS ORDERED: ALBUTEROL SO4 2.5/IPRATROPIUM 0.5 INH SOL 3 ML VIAL.NEB. NEB SCH (08:00)
[2023-02-21] MEDS: BUDESONIDE/FORMETEROL FUMARATE 160/4.5 mcg INHALER IH SCH ×2 (09:56→22:17)
[2023-02-21] MEDS: ENOXAPARIN NA (PORCINE) 60 MG/0.6 ML DISP.SYRIN SQ SCH ×2 (09:56→22:24)
[2023-02-21] MEDS: ALBUTEROL SO4 2.5/IPRATROPIUM 0.5 INH SOL 3 ML VIAL.NEB. NEB SCH ×3 (11:25→20:05)
[2023-02-21 11:41] LABS: HEMATOCRIT 47.3 % (32.4-45.2); HEMOGLOBIN 15.2 GM/dL (10.7-15.3); MCH 29.1 pg (25.7-33.7); MCHC 32.2 g/dl (32.0-36.0); MEAN CELL VOLUME 90.3 fl (80-96); MEAN PLT VOLUME 8.5 fl (7.5-11.1); PLATELET COUNT 421 10^3/uL (134-434); RBC 5.24 M/mm3 (3.60-5.2); RDW 14.9 % (11.6-15.6); WHITE BLOOD COUNT 18.6 K/mm3 (4.0-10.0)
[2023-02-21 12:04] LABS: POTASSIUM 4.4 mmol/L (3.5-5.1)
[2023-02-21 12:07] LABS: CALCIUM 9.8 mg/dL (8.5-10.1)
[2023-02-21 12:08] LABS: BLOOD UREA NITROGEN 16.9 mg/dL (7-18)
[2023-02-21 12:11] LABS: CREATININE 0.8 mg/dL (0.55-1.3)
[2023-02-21] MEDS: MONTELUKAST NA 10 MG TABLET PO SCH (22:13)
[2023-02-22 00:20] LABS: PHENCYCLIDINE,URINE NEGATIVE (NEGATIVE)
[2023-02-22 00:21] LABS: OPIATES, URI NEGATIVE (NEGATIVE); URINE AMPHETAMINES NEGATIVE (NEGATIVE); URINE BARBITURATES NEGATIVE (NEGATIVE); URINE BENZODIAZEPINES NEGATIVE (NEGATIVE)
[2023-02-22 00:50] LABS: COCAINE, UR POSITIVE (NEGATIVE); METHADONE, UR POSITIVE (NEGATIVE)
[2023-02-22 01:01] LABS: PH,URINE 6.5 (5.0-8.0); URINE APPEARANCE CLEAR; URINE BILIRUBIN NEGATIVE (NEGATIVE); URINE COLOR YELLOW; URINE GLUCOSE (UA) 500 mg/dl (NEGATIVE); URINE KETONE NEGATIVE (NEGATIVE); URINE NITRITE NEGATIVE (NEGATIVE); URINE PROTEIN NEGATIVE (NEGATIVE); URINE UROBILINOGEN 0.2 mg/dL (0.2-1.0)
[2023-02-22 01:02] LABS: URINE LEUK ESTERASE NEGATIVE (NEGATIVE)
[2023-02-22] MEDS: methylPREDNISolone NA SUCC 40 MG/1 ML VIAL IVPUSH SCH (02:02)
[2023-02-22] MEDS: ALBUTEROL SO4 2.5/IPRATROPIUM 0.5 INH SOL 3 ML VIAL.NEB. NEB SCH ×4 (08:20→21:37)
[2023-02-22] MEDS: ENOXAPARIN NA (PORCINE) 60 MG/0.6 ML DISP.SYRIN SQ SCH ×2 (09:41→21:39)
[2023-02-22] MEDS ORDERED: methaDONE HCL 10 MG TABLET PO ONE (10:00)
[2023-02-22] MEDS ORDERED: methylPREDNISolone NA SUCC 40 MG/1 ML VIAL IVPUSH SCH (10:00)
[2023-02-22] MEDS: BUDESONIDE/FORMETEROL FUMARATE 160/4.5 mcg INHALER IH SCH ×2 (10:27→21:41)
[2023-02-22] MEDS: MONTELUKAST NA 10 MG TABLET PO SCH (21:41)
[2023-02-22] MEDS ORDERED: INSULIN (NOVOLOG) ASPART 100 UNITS/ML 10ML VIAL SQ SCH (22:00)
[2023-02-22] MEDS: INSULIN SLIDING SCALE (NOVOLOG) 1 VIAL SQ SCH (22:38)
[2023-02-23] MEDS: INSULIN SLIDING SCALE (NOVOLOG) 1 VIAL SQ SCH ×4 (06:11→21:58)
[2023-02-23] MEDS: ALBUTEROL SO4 2.5/IPRATROPIUM 0.5 INH SOL 3 ML VIAL.NEB. NEB SCH ×4 (08:12→20:00)
[2023-02-23] MEDS: predniSONE 20 MG TABLET (UD) PO SCH (09:55)
[2023-02-23] MEDS: ENOXAPARIN NA (PORCINE) 60 MG/0.6 ML DISP.SYRIN SQ SCH ×2 (09:55→21:39)
[2023-02-23] MEDS: BUDESONIDE/FORMETEROL FUMARATE 160/4.5 mcg INHALER IH SCH ×2 (09:59→21:39)
[2023-02-23] MEDS ORDERED: INSULIN (NOVOLOG) ASPART 100 UNITS/ML 10ML VIAL ONE (16:39)
[2023-02-23] MEDS: MONTELUKAST NA 10 MG TABLET PO SCH (21:39)
[2023-02-24] MEDS: INSULIN SLIDING SCALE (NOVOLOG) 1 VIAL SQ SCH ×2 (06:16→12:06)
[2023-02-24] MEDS: ALBUTEROL SO4 2.5/IPRATROPIUM 0.5 INH SOL 3 ML VIAL.NEB. NEB SCH ×3 (07:30→15:06)
[2023-02-24 09:32] VITALS: RESP 20
[2023-02-24] MEDS: predniSONE 20 MG TABLET (UD) PO SCH (09:41)
[2023-02-24] MEDS: ENOXAPARIN NA (PORCINE) 60 MG/0.6 ML DISP.SYRIN SQ SCH (09:44)
[2023-02-24] MEDS: BUDESONIDE/FORMETEROL FUMARATE 160/4.5 mcg INHALER IH SCH (09:50)
[2023-02-24] MEDS ORDERED: methaDONE HCL 10 MG TABLET (FOR DETOX USE ONLY) PO ONE (10:00)
[2023-02-24] MEDS ORDERED: methaDONE HCL 10 MG TABLET PO ONE (10:00)
[2023-02-24 15:56] VITALS: BP 124/78; PULSE 85; TEMP 98.1
== END 2023-02-24 16:58 | disposition other institution (70) | DRG 133 ==
LOC: JER 22:12 → JERBED 02-20 01:52 → J4W 02-20 16:46
PROVIDERS: ADMIT Internal Medicine; ATTEND Psychiatry & Neurology Pain Medicine
DX: J96.01 Acute respiratory failure with hypoxia (principal); F11.23 Opioid dependence with withdrawal; F14.10 Cocaine abuse, uncomplicated; J44.1 Chronic obstructive pulmonary disease with (acute) exacerbation; I10 Essential (primary) hypertension; F25.0 Schizoaffective disorder, bipolar type; E11.9 Type 2 diabetes mellitus without complications; F17.210 Nicotine dependence, cigarettes, uncomplicated; J45.901 Unspecified asthma with (acute) exacerbation; M54.50 Low back pain, unspecified; Z86.718 Personal history of other venous thrombosis and embolism; Z59.00 Homelessness unspecified; Z91.199 Patient's noncompliance with other medical treatment and regimen due to unspecified reason
CPT/HCPCS: 0241U-QW; 36415; 71045-TC-FY; 80048; 80053; 80305; 80307; 81003; 81025; 82803; 82962; 83036; 83735; 84484; 84703; 85025; 85027; 85379; 87040; 93005; 93010; 93970-TC; 94640; 94761; 99285-25